=== PATIENT | male | born 1955 | race Caucasian/White ===

== ENCOUNTER 2020-04-25 02:54 | Outpatient (CLI) | payer BC, SELFPAY ==
[2020-04-25 18:17] LABS: SARS-CoV-2 RNA PCR Negative
== END 2020-04-25 02:55 | disposition home or self-care (01) ==
PROVIDERS: PCP Family Medicine; Visit Provider Urology
DX: Z01.812 Encounter for preprocedural laboratory examination (principal); Z20.828 Contact with and (suspected) exposure to other viral communicable diseases
CPT/HCPCS: 87635; C9803; U0003

== ENCOUNTER 2020-04-25 07:38 | Outpatient (CLI) | payer BC, SELFPAY ==
--- NOTE | 2020-04-25 07:41 | ECG_ITS ---
Measurements Intervals [place] Rate: 68 P: 76 IN: 206 QRS: 10 QRSD: 104 T: 31 QT: 375 QTc: 400 Interpretive Statements SINUS RHYTHM BORDERLINE AV CONDUCTION DELAY DELAYED PRECORDIAL R/S TRANSITION NONSPECIFIC ST & T-WAVE ABNORMALITY- INF/HIGH LAT LEADS BORDERLINE ECG Electronically Signed On 04-25-2020 8:10:27 CDT by Guillaume Schaefer D.O.
[2020-04-25 08:35] LABS: Anion Gap 10 mmol/L (8-16); Blood Urea Nitrogen 21 mg/dL (9-20); Calcium 9.4 mg/dL (8.4-10.2); Carbon Dioxide 32 mmol/L (22-30); Chloride 96 mmol/L (98-107); Estimated Glomerular Filt Rate > 60; Glucose 503 mg/dL (75-110); Potassium 4.6 mmol/L (3.4-5.0); Sodium 138 mmol/L (137-145)
== END 2020-04-25 07:39 | disposition home or self-care (01) ==
PROVIDERS: Anesthesiology; PCP Family Medicine; Visit Provider Urology
DX: Z01.818 Encounter for other preprocedural examination (principal); E11.9 Type 2 diabetes mellitus without complications
CPT/HCPCS: 36415; 80048; 93005

== ENCOUNTER 2020-04-27 03:43 | Day surgery (SDC) | payer BC, SELFPAY ==
[2020-04-18 08:30] VITALS: BMI 38.7
--- NOTE | 2020-04-18 09:07 | PC.NURSE ---
PT STATS NO HOME MEDS, GLIPIZIDE AND LISINOPRIL-HCTZ NOTED ON PT'S MED LIST. WHEN QUESTIONED PT STATED I PROBABLY SHOULD BE TAKING THEM, BUT I'VE LOST SOME WEIGHT AND I DON'T THINK I NEED THEM ANYMORE PT STATES LOSING ABOUT 30 LBS OVER THE LAST 9 MONTHS TO A YEAR, AND STATES HAS NOT TAKEN ANY MEDICATION FOR THE LAST 4-6 MONTHS. PT INSTRUCTED TO CONTACT DR. ARCE AND INFORM HIM OF STOPPING MEDICATIONS - UNDERSTANDING VOICED, BUT QUESTIONABLE IF PT WILL FOLLOW THROUGH. DR. ESQUIVEL INFORMED OF ABOVE.
--- NOTE | 2020-04-24 08:34 | P.HP_ITS ---
History of Present Illness History of Present Illness Consent: Risks, benefits, and alternatives have been discussed and questions answered. Patient agrees to proceed with procedure. Chief complaint: Recurrent Urethral Stricture Narrative: Kai Stewart is a 65 year old male with longstanding obstructive and irritable voiding symptoms refractory to OAB meds. Recent urodynamics reveal bladder outlet obstruction. Given history of urethral stricture we decided to forego office cystoscopy and proceed to cystoscopy, possible urethral dilatation and possible optical internal urethrotomy. Review of Systems Cardiovascular: Cardiovascular: Denies chest pain, Denies lightheadedness, Denies palpitations and Denies dyspnea Respiratory: Respiratory: Denies dyspnea Gastrointestinal: Gastrointestinal: Denies diarrhea, Denies nausea and Denies vomiting Genitourinary: Genitourinary: Denies hematuria and Denies dysuria Endocrine: Endocrine: Denies palpitations PMF Family History Family History Mother Family history of lung cancer, Onset Age: 88 Other Family history of allergic disorder Social History Social History Smoking status: Never smoker Alcohol intake: current Substance use: never Spiritual care concerns: No Meds Home Medications and Allergies Home Medications Medication Instructions Recorded Confirmed Type No Home Medications 04/18/20 04/18/20 History Allergies Allergy/AdvReac Type Severity Reaction Status Date / Time Penicillins Allergy Unknown Rash Verified 04/18/20 08:35 Exam Const: General: no acute distress Resp: Effort & Inspection: normal respiratory effort GI: Inspection: non-distended GI Palp: No abdominal tenderness and No Guarding due to palpation present (GI) Auscultation: normal bowel sounds Assessment and Plan Assessment and plan (1) Urethral stricture: Code(s): N35.919 - Unspecified urethral stricture, male, unspecified site Status: Acute Assessment and Plan: * Cystoscopy, possible urethral dilatation, possible internal urethrotomy.
[2020-04-27 06:46] VITALS: BP 159/95; PULSE 61; RESP 20; TEMP 36; O2SAT 98
--- NOTE | 2020-04-27 06:47 | WPDHPUPDATE1 ---
History and Physical Update Update Date/Time: 04/27/20 06:47 History and Physical has been reviewed, including an updated exam of the patient. There are NO changes in the patient's condition. Risks, benefits, and alternatives have been discussed and questions answered. Patient agrees to proceed with procedure.
[2020-04-27 07:00] LABS: Glucose Point of Care 308 (65-105)
[2020-04-27] MEDS: LACTATED RINGERS 1,000 ML 30 ML IV CONT (07:10)
--- NOTE | 2020-04-27 07:16 | WPDANESEPPF ---
Anes - Initial Pre Proc Eval Procedure: Operation Date: 04/27/20 08:30 Proposed Procedures p Cystoscopy, Possible Urethral Dilatation, Possible Optical Internal Urethrotomy - Jean Paul Molina MD Date/Time: 04/27/20 07:16 Surgeon: Jean Paul Molina MD Pre Op Diagnosis: Recurrent Urethral Stricture Patient Data Age: 65 Gender: M Height: 5 ft 9 in Weight: 118.81 kg Allergies Allergy/AdvReac Type Severity Reaction Status Date / Time Penicillins Allergy Unknown Rash Verified 04/27/20 07:15 Home Medications Medication Instructions Recorded Confirmed Type No Home Medications 04/18/20 04/18/20 History Laboratory Tests 04/27/20 06:38 POC Capillary Glucose 308 mg/dl H mg/dl (65-105) Patient hx anesthesia problems: none Family hx anesthesia problems: none PMFSH Past Medical History Medical History (Updated 04/27/20 @ 07:16 by Yasir Coles MD) Diabetes Obesity Family History Family History Mother Family history of lung cancer, Onset Age: 88 Other Family history of allergic disorder Social History Social History Smoking status: Never smoker Alcohol intake: current Alcohol use details: STATES VERY RARE - SOCIAL EVENTS, [place] AND THE LIKE Substance use: never Living arrangements: with family Spiritual care concerns: No Anes - Eval Final PreProcedure Day of Procedure 04/27/20 07:16 Patient weight: obese Heart: regular rate and rhythm Lungs: clear to auscultation Airway: Mallampati scale class II Neurological: alert and oriented Last oral intake: >/= 8 hours ASA classification: III Emergent: no Anesthetic plan: proceed Anesthesia type and monitoring: general LMA and standard monitoring Informed Consent: The patient's anesthetic plan and its attendant risks and benefits were discussed with the patient/family/POA. Questions were solicited and answers provided to the satisfaction of the patient/family/POA.
[2020-04-27] MEDS: INSULIN HUMAN REGULAR (*BKC) 100 UNITS/ML 10 UNITS IV PUSH (07:19)
[2020-04-27] MEDS: LIDOCAINE HCL 2% GEL UROJET 10 ML PKG MUCOUS MEM (07:20)
[2020-04-27] MEDS: ceFAZolin 2 GM/D5W 50 ML 2 GM/50 ML BAG IVPB (08:36)
--- NOTE | 2020-04-27 09:03 | P.OP_ITS ---
Procedure Note - Detailed Date of procedure: 04/27/20 Pre-op diagnosis: Recurrent Urethral Stricture Post-op diagnosis: same Procedure performed: Optical internal urethrotomy Description of procedure: The patient was brought to the operative suite where he was prepped and draped in a routine sterile fashion while in a dorsal lithotomy position after the uneventful administration of systemic sedation by the anesthesia department. 2% Lidocaine was placed in the uretha and allowed to stand for an appropriate period of time. Cystoscopy was undertaken with a 19F rigid cystoscope. He has a moderately constricting stricture of the bulbous u rethra. The bladder itself was endoscopically normal without foreign body or neoplasm. The bladder mucosa was without hyperemia. There was a single orthotopic ureteral orifice bilaterally with clear reflex of urine. Using the optical urethratome, I incised the strictured urethra at the 12 o'clock position care taken to avoid injury to the membranous urethra. An 18F Gotti catheter was placed, the bladder was emptied and the patient was taken to the recovery room in good condition. Anesthesia: MAC Surgeon: Jean Paul Molina MD Estimated blood loss (mL): 0 Drains: Yes (18F Gotti) Packing: No Pathology: none sent Complications: No immediate complications Condition: stable Disposition: PACU
[2020-04-27 09:04] VITALS: BP 117/61; PULSE 57; RESP 16; O2SAT 99
[2020-04-27 09:19] LABS: Glucose Point of Care 189 (65-105)
[2020-04-27 09:35] VITALS: BP 116/90; PULSE 66; RESP 18
[2020-04-27 10:05] VITALS: BP 131/67; PULSE 58; RESP 20
--- NOTE | 2020-04-27 12:09 | SUR.PHASEII ---
1015; PT AWAKE AND ALERT. DENIES PAIN. SANDS SECURED TO LEG BAG. LEG STRAP APPLIED PER PT REQUEST. OR SENT ONE WITH PT CHART. PT STATES HE HAS HAD A SANDS BEFORE AND IS COMFORTABLE USING THEM. MEETS DISCHARGE CRITERIA
== END 2020-04-27 10:33 | disposition home or self-care (01) ==
PROVIDERS: PCP Family Medicine; Visit Provider Urology
PROC: (CPT 52276; principal; 2020-04-27 08:30)
DX: N35.912 Unspecified bulbous urethral stricture, male (principal); E11.9 Type 2 diabetes mellitus without complications; E66.9 Obesity, unspecified; Z68.34 Body mass index [BMI] 34.0-34.9, adult
CPT/HCPCS: 52276; A9270; J0690; J1815; J2250; J2405; J2704; J3010; J7120

== ENCOUNTER 2020-05-25 18:10 | Emergency (ER) | payer BC, SELFPAY ==
--- NOTE | ~2020-05-25 | XR_ITS ---
EXAMINATION: XR chest 1V portable DATE: 05/25/2020 19:50 INDICATION: Shortness of breath and cough. TECHNIQUE: A single frontal view of the chest was obtained. COMPARISON: Chest CT 05/25/2020 FINDINGS: There are mild patchy airspace opacities in the mid and lower lung zones. No pleural effusi on or pneumothorax. The heart size is normal. IMPRESSION: 1. Mild patchy airspace opacities in the mid and lower lung zones, consistent with pneumonia such as COVID-19 pneumonia. Reviewed, dictated and finalized at location A. GRAPHER IMPRESSION: 1. Mild patchy airspace opacities in the mid and lower lung zones, consistent w ith pneumonia such as COVID-19 pneumonia.
--- NOTE | ~2020-05-25 | CT_ITS ---
EXAMINATION: CTA chest PE protocol DATE: 05/25/2020 19:47 INDICATION: Cough. TECHNIQUE: Computed tomography angiography (CTA) of the chest was performed with 100 mL Omnipaque-350 intravenous contrast timed to evaluate the pulmonary arteries. Coronal maximum intensity projection 3D-reconstructions were created by the technologist. Automated exposure control and iterative reconst ruction technique were employed. The dose-length product was 618.73 mGy-cm. COMPARISON: None. FINDINGS: There are patchy groundglass opacities with septal thickening (crazy paving) in all lobes w ith a peripheral predominance and lower lobe predominance. No pleural effusion. The heart size is nor mal. There is no pulmonary embolus. There is diffuse hepatic steatosis. There are bridging endplate o steophytes at multiple levels in the spine, consistent with diffuse idiopathic skeletal hyperostosis (DISH). IMPRESSION: 1. No pulmonary embolus. 2. Diffuse lung disease, consistent with pneumonia such as COVID-19 pneumonia. Reviewed, dictated and finalized at location A. DENTIAL BUILDING INSPECTOR
[2020-05-25 18:16] VITALS: BP 140/84; PULSE 120; RESP 14; TEMP 37.1; O2SAT 97
--- NOTE | 2020-05-25 18:32 | ECG_ITS ---
Measurements Intervals [place] Rate: 129 P: CT: 0 QRS: 20 QRSD: 92 T: 216 QT: 288 QTc: 423 Interpretive Statements ATRIAL FIBRILLATION WITH RAPID VENTRICULAR RESPONSE NONSPECIFIC ST & T-WAVE ABNORMALITY- DIFFUSE LEADS BASELINE ARTIFACT- I, III, AVL, AVF ABNORMAL ECG Electronically Signed On 05-26-2020 6:48:01 IRONWORKER by Guillaume Schaefer D.O.
--- NOTE | 2020-05-25 18:34 | ED.GENADULT ---
HPI - General Adult General Chief complaint: Unspecified Stated complaint: felt bad x5 days, no appetite Time Seen by Provider: 05/25/20 18:17 Source: patient Mode of arrival: ambulatory Limitations: no limitations History of Present Illness HPI narrative: Patient 65 years old white male presents with coughing, shortness of breath, diarrhea, general weakness for the last 6 days. History of COVID-19 exposure 2 weeks ago. Patient did not have COVID-19 test done yet. Patient's is asymptomatic. Patient denies any fever, chills, sore throat, headache, body aches. Related Data Allergies Allergy/AdvReac Type Severity Reaction Status Date / Time Penicillins Allergy Unknown Rash Verified 05/25/20 18:19 Review of Systems Review of Systems: Narrative: CONSTITUTIONAL: Denies fever, chills, or sweats. EYES: Denies visual changes, redness, or discharge. ENT: Denies rhinorrhea, congestion, sore throat, or otalgia. CARDIOVASCULAR: Denies chest pain, palpitations, or edema. RESPIRATORY: Complaining of cough and shortness of breath GASTROINTESTINAL: Denies abdominal pain, nausea, vomiting, or diarrhea. GENITOURINARY: Denies dysuria or hematuria. SKIN: Denies rash or itching. MUSCULOSKELETAL: Denies back pain, joint pain, or myalgia. NEUROLOGIC: Denies headache, numbness, complaining of general weakness PSYCHIATRIC: Denies anxiety or depression. [facility] Past Medical History Medical History Diabetes Obesity Family History Family History Mother Family history of lung cancer, Onset Age: 88 Other Family history of allergic disorder Social History Social History Smoking status: Never smoker Alcohol intake: current Substance use: never Spiritual care concerns: No Exam Narrative: Exam Narrative: General appearance: Well-developed, well-nourished Skin: Normal color Head: Normocephalic, nontraumatic Eyes: Clear conjunctiva Chest and respiratory: Airway patent, no respiratory distress, no accessory muscle use slight diminution of air entry bilaterally at the bases Heart: Regular rate/rhythm Abdomen: Soft, nontender, no organomegaly, quiet bowel sounds Musculoskeletal: Normal range of motion, nontender back Neurologic: Alert and oriented ?3, IMMUNOHEMATOLOGIST is normal as tested, no gross motor deficit Course Course Emergency Course: Stable Consultations Consultation #1: DR JALLOH Patient can go home. For follow-up as outpatient. Date: 05/25/20 Time: 20:56 Vital Signs Vital signs: Vital Signs Temperature 37.1 C 05/25/20 18:16 Pulse Rate 120 H 05/25/20 18:16 Respiratory Rate 14 05/25/20 18:16 Blood Pressure 140/84 05/25/20 18:16 Pulse Oximetry 97 05/25/20 18:16 Temperature 37.1 C 05/25/20 18:16 Pulse Rate 115 H 05/25/20 19:56 Respiratory Rate 28 H 05/25/20 19:56 Blood Pressure 118/76 05/25/20 19:56 Pulse Oximetry 97 05/25/20 19:56 Medical Decision Making MDM Narrative Medical decision making narrative: Patient presents with Covid-like symptoms. Positive exposure to Covid positive family members. The plan to get labs, chest x-ray, Covid test, D-dimer, start IV fluid. Chest x-ray showed bilateral basal infiltration consistent with COVID-19 pneumonia. Blood work-up showed leukopenia consistent with viral infection. Blood gas showed oxygen saturation at 94% on room air. Patient symptoms started 6 days ago, remdesivir will not be recommended at this time. Patient will be discharged and to follow-up with his family physician as needed. Differential Diagno
[2020-05-25 18:44] LABS: Basophils Percent Auto 0.9 % (0.2-1.2); Eosinophils Percent Auto 0.3 % (0-4.4); Hemoglobin 16.3 g/dL (14.0-18.0); Immature Granulocyte Absolute 0.06 K/mm3 (0.00-0.031); Immature Granulocyte Percent A 1.7 % (0-0.5); Lymphocytes Percent Auto 23.2 % (18.3-44.2); Mean Corpuscular HGB Conc 33.3 g/dl (32-36); Mean Corpuscular Hemoglobin 28.2 pg (26-34); Mean Corpuscular Volume 84.6 fl (80-100); Mean Platelet Volume 10.6 fl (7.4-10.4); Monocytes Absolute Auto 0.5 K/mm3 (0.1-0.6); Monocytes Percent Auto 14.5 % (2.6-8.5); Neutrophils Absolute Auto 2.1 K/mm3 (1.3-6.7); Neutrophils Percent Auto 59.4 % (45.5-73.1); Platelet Count Result 203 k/mm3 (150-375); Red Blood Count 5.79 M/mm3 (4.6-6.20); Red Cell Distribution Width 12.7 % (11.5-14.5); White Blood Count 3.5 K/mm3 (4.5-10.0)
--- NOTE | 2020-05-25 18:46 | PCRCNOTE ---
PT UP TO BATHROOM. ABG DRAW DELAYED.
[2020-05-25 18:55] LABS: Prothrombin Time 13.8 Seconds (11.1-14.7)
[2020-05-25 18:56] LABS: Partial Thromboplastin Time 30.9 SECONDS (22.3-36.8)
[2020-05-25 18:58] LABS: D Dimer 0.51 ug/mL (<0.48)
[2020-05-25 18:59] LABS: Alanine Aminotransferase 28 U/L (4-50); Albumin Level 3.7 g/dL (3.5-5.1); Alkaline Phosphatase 82 U/L (38-126); Anion Gap 10 mmol/L (8-16); Aspartate Amino Transferase 38 U/L (17-59); Blood Urea Nitrogen 26 mg/dL (9-20); CRP 4.8 mg/dL (<1.0); Calcium 8.7 mg/dL (8.4-10.2); Carbon Dioxide 30 mmol/L (22-30); Chloride 94 mmol/L (98-107); Estimated CRCL calculation 70 ml/min; Estimated Glomerular Filt Rate > 60; Glucose 275 mg/dL (75-110); Sodium 134 mmol/L (137-145)
[2020-05-25 19:07] LABS: Alveolar/Arterial O2 Gradient 44.2 mmHg; Base Excess ABG 0.8 mEq/l (+/-2.0); Fractional Inspired Oxygen 21 %; HCO3 ABG 23.9 mEq/l (22.0-26.0); Oxygen Content ABG 21.2 %vol (16.0-22.0); Oxyhemoglobin 92.7 % THb (90.0-100.0); PO2 ABG 64.8 mmHg (80.0-100.0); PO2 FiO2 Ratio Arterial Blood 3.09 %; Total Hemoglobin 16.3 g/dL (12.0-18.0); pH ABG 7.464 (7.350-7.450)
[2020-05-25 19:08] LABS: Troponin I < 0.012 ng/mL (0.000-0.034)
[2020-05-25 19:08] LABS: Device ROOM AIR; Modified Allen's Test Pass; Site Drawn LEFT RADIAL
[2020-05-25] MEDS: SODIUM CHLORIDE 0.9% IV 1,000 ML 999 ML IV CONT (19:10)
[2020-05-25 19:13] VITALS: RESP 14; O2SAT 99
[2020-05-25 19:14] VITALS: BP 124/75; PULSE 118; RESP 14; O2SAT 96
[2020-05-25 19:33] LABS: Add Urine Microscopic? YES; Appearance Urine Clear (Clear); Bilirubin Urine Negative (Negative); Blood Urine Negative (Negative); Color Urine Amber (Yellow); Glucose Urine UA 2+ mg/dL (Negative); Ketones Urine Trace mg/dL (Negative); Leukocyte Esterase Ur Negative LEU/UL (Negative); Mucus Urine Few /lpf; Nitrate Urine Negative (Negative); Protein Urine 2+ mg/dL (Negative); RBC Urine 0-2 /hpf (0-2); Squamous Epithelial Cell Urine Few /hpf (Few); WBC Urine 0-3 /hpf
[2020-05-25 19:39] LABS: Lactic Acid Reflex 1.8 mmol/L (0.7-2.1)
[2020-05-25 19:56] VITALS: BP 118/76; PULSE 115; RESP 28; O2SAT 97
[2020-05-25 21:08] VITALS: BP 117/86; PULSE 99; RESP 24; O2SAT 97
[2020-05-26 15:20] LABS: SARS-CoV-2 RNA PCR Positive
== END 2020-05-25 21:33 | disposition home or self-care (01) ==
PROVIDERS: Emergency Provider Emergency Medicine; PCP Family Medicine
DX: U07.1 COVID-19 (principal); J12.89 Other viral pneumonia; E11.9 Type 2 diabetes mellitus without complications; E66.9 Obesity, unspecified; Z68.33 Body mass index [BMI] 33.0-33.9, adult; I48.91 Unspecified atrial fibrillation; R94.31 Abnormal electrocardiogram [ECG] [EKG]
CPT/HCPCS: 36415; 36600; 71045; 71275; 80053; 81001; 82805; 83605; 84484; 85025; 85380; 85610; 85730; 86140; 87040; 87077; 87186; 87635; 93005; 96360; 96361; 99284; C9803; J7030; Q9967; U0003

== ENCOUNTER 2020-05-29 18:19 | Inpatient (IN) | payer BC, MEDICARE, SELFPAY ==
--- NOTE | ~2020-05-29 | XR_ITS ---
XR chest 1V portable DATE: 05/29/2020 20:06 INDICATION: Shortness of breath, fever. Weakness. Covid-positive patient. TECHNIQUE: Portable upright AP chest on 05/29/2020 at 2009 hours COMPARISON: 05/25/2020 portable AP chest at 1949 hours FINDINGS: There is interval increased prominence of bilateral patchy infiltrates involving particular ly the mid and lower lung zones since 05/25/2020. No pleural effusion or pneumothorax is evident. There is aortic arch calcification. Heart size is lik florentino within normal limits considering magnification associated with AP projection. Degenerative spurring of the thoracic spine. IMPRESSION: Increased bilateral pneumonia since 05/25/2020 Reviewed, dictated and finalized at location A. ER PUNCH
--- NOTE | ~2020-05-29 | XR_ITS ---
EXAMINATION: XR chest 1V portable EXAM DATE: 06/01/2020 06:11 INDICATION: COVID-19 positive. Pneumonia. TECHNIQUE: Portable AP frontal chest x-ray was obtained. Comparison is made to prior examination from 05/29/2020. FINDINGS: Moderate amount of bilateral ill-defined opacities with peripheral regions of confluence, m ost consistent with acute infectious process. The cardiomediastinal silhouette is prominent but magni fied on this AP technique. There is no pneumothorax suspected. There are no pleural effusions. There are no osseous abnormalities identified. There is no significant interval change. IMPRESSION: Moderate amount of bilateral acute airspace disease. Reviewed, dictated and finalized at location A. STOCK DEALER
--- NOTE | ~2020-05-29 | XR_ITS ---
EXAMINATION: XR chest 1V portable INDICATION: Shortness of breath TECHNIQUE: Portable AP chest at 0508 hours COMPARISON: 06/01/2020 FINDINGS: Diffuse bilateral interstitial and airspace opacities persist without significant change. T here is no pleural effusion or pneumothorax. The heart size is normal for technique. IMPRESSION: 1. Stable diffuse lung disease, consistent with pneumonia and/or pulmonary edema and/or acute respira tory distress syndrome (ARDS). Reviewed, dictated and finalized at location A. TATION MECHANIC IMPRESSION: 1. Stable diffuse lung disease, consistent with pneumonia and/or pulmonary estrellita a and/or acute respiratory distress syndrome (ARDS).
[2020-05-29 19:04] VITALS: BP 114/78; PULSE 136; RESP 22; TEMP 39.3; O2SAT 84
[2020-05-29 19:07] VITALS: PULSE 134
--- NOTE | 2020-05-29 19:10 | ECG_ITS ---
Measurements Intervals [place] Rate: 141 P: [place]: 0 QRS: 39 QRSD: 97 T: -44 QT: 316 QTc: 485 Interpretive Statements ATRIAL FIBRILLATION WITH RAPID VENTRICULAR RESPONSE ST-T WAVE ABNORMALITY IN ANTEROLAT/INF LEADS- CONSIDER ISCHEMIA BASELINE WANDER- I, II, AVR, AVL, AVF, V1-V3 ABNORMAL ECG Electronically Signed On 05-29-2020 20:09:54 WIRE WEAVER by Guillaume Schaefer D.O.
--- NOTE | 2020-05-29 19:14 | ED.GENADULT ---
HPI - General Adult General Chief complaint: Shortness of Breath/Dyspnea Stated complaint: Diarrhea, COVID Positive Firday, Lethergy Time Seen by Provider: 05/29/20 18:58 Source: patient and old records reviewed Mode of arrival: ambulatory Limitations: no limitations History of Present Illness HPI narrative: Patient is 65-year-old male who presents to emergency department for evaluation of worsening COVID-19 symptoms noting he is dyspneic having chest heaviness with headache nausea vomiting and diarrhea. Patient was found to be positive in the last couple of days his is also sick. Patient was placed on clindamycin for possible staph infection in the right arm where he had had a blood draw. Patient notes despite [id number] medications and prescribed medications he has had worsening condition Related Data Allergies Allergy/AdvReac Type Severity Reaction Status Date / Time Penicillins Allergy Unknown Rash Verified 05/29/20 19:08 Review of Systems Review of Systems: All systems reviewed & are unremarkable except as noted in HPI and below PMFSH Past Medical History Medical History Diabetes Obesity Family History Family History Mother Family history of lung cancer, Onset Age: 88 Other Family history of allergic disorder Social History Social History Smoking status: Never smoker Alcohol intake: current Substance use: never Spiritual care concerns: No Exam Narrative: Exam Narrative: GENERAL: Ill-appearing, obese, and in no acute distress. HEAD: Normocephalic, atraumatic. EYES: PERRLA and EOMI. ENT: Nares clear, no rhinorrhea or epistaxis. Mucous membranes dry NECK: Supple. No adenopathy or masses. CHEST: Clear to auscultation. No respiratory distress. Slight crackles throughout HEART: Tachycardic irregularly irregular rate and rhythm. No murmur heard. Normal peripheral pulses. EXTREMITIES: Normal range of motion. No edema. SKIN: Warm, dry, no rash. NEURO: No focal deficits. Alert and oriented x3. Cranial nerves II through XII grossly intact PSYCH: Normal mood and affect. Course Course Emergency Course: Patient has been treated for sepsis with fluids was given Cardizem to slow his heart rate patient with likely A. fib with RVR secondary to his illness which is COVID-19 patient with vomiting and diarrhea likely has become dehydrated has been hydrated in the ER will be placed in the hospital to the hospitalist service in the IMU. Consultations Consultation #1: Spoke with the hospitalist who has agreed to accept the patient Date: 05/29/20 Time: 20:39 Vital Signs Vital signs: Vital Signs Temperature 102.8 F H 05/29/20 19:04 Pulse Rate 136 H 05/29/20 19:04 Respiratory Rate 22 H 05/29/20 19:04 Blood Pressure 114/78 05/29/20 19:04 Pulse Oximetry 84 L 05/29/20 19:04 Temperature 102.8 F H 05/29/20 19:04 Pulse Rate 134 H 05/29/20 19:07 Respiratory Rate 22 H 05/29/20 19:04 Blood Pressure 114/78 05/29/20 19:04 Pulse Oximetry 84 L 05/29/20 19:04 Medical Decision Making MDM Narrative Medical decision making narrative: With the patient in the room at this time with improvement with interventions afebrile was given Cardizem his heart rate did improve patient. Patient will be continually monitored in the IMU. Patient at this time agreeing to stay in hospital. Patient was given 3 L of fluid Tylenol and Cardizem. Vital Signs Vital Signs: Vital Signs Temperature 102.8 F H 05/29/20 19:04 Pulse Rate 136 H 05/29/20 19:04 Respiratory Rate 22 H 05/29/20 19:04 Blood Pressure 114/78 05/29/20 19:04 Pulse Oximetry 84 L 05/29/20 19:04 Temperature 102.8 F H 05/29/20 19:04 Pulse Rate 134 H 05/29/20 19:07 Respiratory Rate 22 H 05/29/20 19:04 Blood Pressure 114/78 05/29/20 19:04 Pu
[2020-05-29] MEDS: DEXAMETHASONE SOD PHOS INJ 4 MG/ML VIAL 10 MG IV PUSH (19:37)
[2020-05-29] MEDS: SODIUM CHLORIDE 0.9% IV 1,000 ML 999 ML IV CONT ×2 (19:38→20:14)
[2020-05-29 19:47] LABS: Alveolar/Arterial O2 Gradient 80.2 mmHg; Base Excess ABG 0.2 mEq/l (+/-2.0); Carboxyhemoglobin 1.1 % THb (0-2.0); Device NASAL CANNULA; Fractional Inspired Oxygen 28 %; Methemoglobin ABG 0.4 %THb (0-1.5); Modified Allen's Test Pass; Oxygen Content ABG 20.4 %vol (16.0-22.0); Oxygen Saturation ABG 96.7 % (95.0-100.0); Oxyhemoglobin 94.7 % THb (90.0-100.0); PCO2 ABG 32.2 mmHg (35.0-45.0); PO2 ABG 81.4 mmHg (80.0-100.0); PO2 FiO2 Ratio Arterial Blood 2.91 %; Reduced Hemoglobin 3.8 %THb (0-5.0); Site Drawn RIGHT RADIAL; Total Hemoglobin 15.3 g/dL (12.0-18.0); pH ABG 7.471 (7.350-7.450)
[2020-05-29 19:57] LABS: Lactic Acid Reflex 3.2 mmol/L (0.7-2.1)
[2020-05-29 20:08] LABS: Basophils Percent Auto 0.3 % (0.2-1.2); Eosinophils Percent Auto 0.3 % (0-4.4); Hematocrit 45.4 % (42.0-52.0); Hemoglobin 15.1 g/dL (14.0-18.0); Immature Granulocyte Absolute 0.05 K/mm3 (0.00-0.031); Immature Granulocyte Percent A 0.7 % (0-0.5); Lymphocytes Absolute Auto 0.42 K/mm3 (0.9-3.2); Lymphocytes Percent Auto 5.8 % (18.3-44.2); Mean Corpuscular HGB Conc 33.3 g/dl (32-36); Mean Corpuscular Hemoglobin 28.1 pg (26-34); Mean Corpuscular Volume 84.5 fl (80-100); Mean Platelet Volume 10.2 fl (7.4-10.4); Monocytes Absolute Auto 0.8 K/mm3 (0.1-0.6); Monocytes Percent Auto 10.4 % (2.6-8.5); Neutrophils Percent Auto 82.5 % (45.5-73.1); Platelet Count Result 246 k/mm3 (150-375); Red Blood Count 5.37 M/mm3 (4.6-6.20); Red Cell Distribution Width 12.3 % (11.5-14.5); White Blood Count 7.2 K/mm3 (4.5-10.0)
[2020-05-29 20:23] LABS: Alanine Aminotransferase 23 U/L (4-50); Albumin Level 3.5 g/dL (3.5-5.1); Alkaline Phosphatase 78 U/L (38-126); Anion Gap 12 mmol/L (8-16); Aspartate Amino Transferase 36 U/L (17-59); Bilirubin,Total 1.4 mg/dL (0.2-1.3); Blood Urea Nitrogen 22 mg/dL (9-20); Calcium 8.4 mg/dL (8.4-10.2); Carbon Dioxide 28 mmol/L (22-30); Chloride 97 mmol/L (98-107); Estimated CRCL calculation 55 ml/min; Estimated Glomerular Filt Rate 51; Glucose 180 mg/dL (75-110); Magnesium 1.6 mg/dL (1.6-2.3); Phosphorus 3.6 mg/dL (2.5-4.5); Potassium 3.6 mmol/L (3.4-5.0); Sodium 137 mmol/L (137-145)
[2020-05-29 20:43] LABS: Beta-Hydroxybutyrate/Acetoacetate 0.95 mmol/L (0.02-0.27)
[2020-05-29] MEDS: LACTATED RINGERS 1,000 ML 999 ML IV CONT (20:47)
[2020-05-29] MEDS: dilTIAZem HCl INJ 25 MG/5 ML VIAL 10 MG IV PUSH (20:48)
[2020-05-29 20:50] VITALS: BP 89/68; PULSE 98; RESP 22; TEMP 36.6; O2SAT 94
[2020-05-29 21:20] LABS: Troponin I 0.014 ng/mL (0.000-0.034)
[2020-05-29] MEDS: FAMOTIDINE 20 MG/2 ML VIAL IV PUSH (21:53)
[2020-05-29] MEDS: LACTATED RINGERS 1,000 ML 75 ML IV CONT (21:53)
[2020-05-29 22:40] LABS: Reflex Lactic Acid Yes or No Add Lactic
[2020-05-29 22:53] VITALS: BP 101/64; PULSE 94; RESP 19; TEMP 36.9; O2SAT 96
--- NOTE | 2020-05-29 23:11 | PC.NURSE ---
This patient, Kai Stewart, was admitted to IMU Room 212-01. Patient/family oriented to hospital policies and general routines including ID bracelet, bed and alarms, visiting hours, pain management, procedures, bathroom and other care routines, personal items, smoking policy, room service/diet, and visiting hours. Information on how to activate the Rapid Response Team has been discussed. Patient/Family are encouraged to report perceived risks to care and to ask questions if they do not understand what they are told or what they should do.
[2020-05-29 23:19] VITALS: BP 103/70; PULSE 115; RESP 24; TEMP 36.9; O2SAT 98
--- NOTE | 2020-05-29 23:53 | PM.IMHP ---
H&P: HPI History of Present Illness Date/Time: 05/29/20 23:53 Chief complaint: covid 19, sepsis, pneumonia, dehydration Narrative: This is a pleasant 65 year old Diabetic male who presented to the hospital [facility] with a complaint of worsening shortness of breath, headache, body aches, fever, vomiting, and diarrhea. The patient has had COVID symptoms for about 2 weeks now and just tested positive for COVID-19 this past week. Tonight the patient decided to come to the hospital as he as having worsening exertional shortness of breath. The patient was evaluated in the ER tonight and found to be hypoxic on room air and placed on 3L of oxygen via NC. While in the ER the patient was found to be in rapid atrial fibrillation. He was treated with LR IV bolus and IV diltiazem as his heart rate was in the 130s. He denies any history of atrial fibrillation. ON further questioning tonight he denies any chest pain, hematuria, dysuria, abdominal pain, or focal neurological symptoms. Review of Systems Review of Systems: All systems reviewed & are unremarkable except as noted in HPI and below PMFSH Past Medical History Medical History Diabetes Obesity Family History Family History Mother Family history of lung cancer, Onset Age: 88 Other Family history of allergic disorder Social History Social History Smoking status: Former smoker Alcohol intake: never Substance use: never Spiritual care concerns: No Comments Past surgical history is reviewed and noncontributory. Meds Home Medications and Allergies Home Medications Medication Instructions Recorded Confirmed Type metformin 500 mg tablet,extended 1,000 mg PO BID #120 tablet 05/01/20 05/29/20 Rx release 24 hr clindamycin HCl 300 mg capsule 300 mg PO Q8H #21 cap 05/27/20 05/29/20 Rx lisinopril-hydrochlorothiazide 1 tablet DAILY 05/29/20 05/29/20 History Allergies Allergy/AdvReac Type Severity Reaction Status Date / Time Penicillins Allergy Unknown Rash Verified 05/29/20 19:08 Vital Signs Vital Signs - 24 hr 05/29/20 19:04 05/29/20 19:07 05/29/20 20:50 Temperature 39.3 C H 36.6 C Pulse Rate 136 H 134 H 98 Respiratory Rate 22 H 22 H Blood Pressure 114/78 89/68 L Pulse Oximetry 84 L 94 05/29/20 22:53 05/29/20 23:19 Temperature 36.9 C 36.9 C Pulse Rate 94 115 H Respiratory Rate 19 24 H Blood Pressure 101/64 103/70 Pulse Oximetry 96 98 Exam Const: General: cooperative, alert, awake and ill appearing acutely Nutritional Appearance: obese morbidly obese Orientation/consciousness: patient oriented x3 HENMT: Head: normal to inspection General nose exam: Normal external nose present Face and sinus: normal facial exam Mouth: Yes Normal oral and palatal mucosa present and Yes oropharynx normal Eyes: Pupils: Equal, round and reactive pupils present EOM: EOMs intact bilaterally Neck: Neck: supple and no JVD Thyroid: thyroid normal Lymphatic: lymphadenopathy not noted Resp: Effort & Inspection: tachypneic Auscultation: rales bilateral Cardio: Rate: tachycardic Rhythm: abnormal rhythm irregularly irregular Heart sounds: no murmurs GI: Inspection: normal to inspection Auscultation: normal bowel sounds Skin: General skin exam: normal color and no rashes or lesions noted Neuro: General: patient oriented x3 Cranial nerves: Yes CN's II-XII intact bilaterally and Yes Equal, round and reactive pupils present Speech: normal speech Motor exam (neuro): 5/5 motor strength present throughout Sensory Exam: normal sensation Extrem: General: no edema Psych: Mental Status: mental status grossly normal Affect: normal affect H&P: Results Labs Labs: Short CBC 05/29/20 Range/Units 19:54 WBC 7.2 (4.5-10.0) K/mm3 Hgb 15.1 (14.0-18.0) g/dL Hct 45.4 (42.0-52.0
[2020-05-30] VITALS (25 sets, daily range): BP systolic 102–131; BP diastolic 58–93; PULSE 106–150; RESP 16–20; TEMP 36.8–37.3; O2SAT 91–98
--- NOTE | 2020-05-30 00:12 | ECHO_ITS ---
Patient Info Name: Kai Stewart Age: 65 years : 1955 Gender: Male Ht: 69 in Wt: 226 lbs BSA: 2.27 m2 HR: 120 bpm BP: 112 / 75 mmHg Heart Rhythm: Atrial Fibrillation Technical Quality: Good Exam Date: 05/30/2020 11:38 AM Exam Location: [facility] Pulmonary Patient Status: Inpatient Admit Date: 05/29/2020 Staff Ordering Physician: Luis Enrique Perrin MD Underwriting Assistant: Yasir Talamantes RDCS Attending Provider: Camilo Dubon MD Referring Physician: Marychuy CISNEROS; Exam Type: CA echo doppler color flow Study Info Indications I48.1 - Persistent atrial fibrillation Complete two-dimensional, color flow and Doppler transthoracic echocardiogram is performed. History/Risk Factors Covid positive; sepsis, pneumonia, DM2, ARF w/ hypoxia, Afib. Summary 1. Left ventricular systolic function is normal, estimated at 55-60%. 2. There is mildly increased left ventricular wall thickness. 3. Left atrial chamber dimension is mildly enlarged. 4. There is no aortic valve stenosis. 5. No pulmonary hypertension, estimated pulmonary arterial systolic pressure is 29 mmHg. 6. There is trace tricuspid valve regurgitation. Left Ventricle Left ventricular chamber dimension is normal. Left ventricular systolic function is normal, estimated at 55-60%. There is mildly increased left ventricular wall thickness. The left ventricular diastolic function is indeterminate. Right Ventricle Right ventricular chamber dimension is normal. Right ventricular systolic function is normal. Left Atria Left atrial chamber dimension is mildly enlarged. Right Atria Right atrial chamber dimension is mildly enlarged. Aortic Valve The aortic valve is not well visualized. There is no aortic valve stenosis. There is no aortic valve regurgitation. Pulmonic Valve The pulmonic valve is not well visualized. Mitral Valve The mitral valve has normal leaflets. There is trace mitral valve regurgitation. Tricuspid Valve The tricuspid valve leaflets are normal. There is trace tricuspid valve regurgitation. No pulmonary hypertension, estimated pulmonary arterial systolic pressure is 29 mmHg. Pericardium/Pleural The pericardium appears epicardial fat pad. There is trivial pericardial effusion. Inferior Vena Cava Normal inferior vena cava with >50% collapse upon inspiration consistent with normal right atrial pressure, 5 mmHg. Aorta The aortic root size at the sinus of Valsalva is normal. Left Ventricular Outflow Tract Name Value Normal LVOT 2D LVOT Diameter 1.9 cm LVOT Doppler LVOT Peak Velocity 92 cm/s LVOT Peak Gradient 3 mmHg LVOT Mean Gradient 1 mmHg LVOT VTI 13 cm LVOT VTI/AV VTI Ratio 0.8 LVOT Stroke Volume 38 ml LVOT CO 3.9 l/min LVOT CI 1.7 l/min/m2 Mitral Valve Name
[2020-05-30] MEDS: DIGOXIN INJ 250 MCG/ML 2 ML AMP (*BKC) 500 MCG IV PUSH (01:20)
[2020-05-30] MEDS: guaiFENesin/DEXTROMETHORPHAN 10 ML UDC PO (01:22)
[2020-05-30] MEDS: ENOXAPARIN 100 MG/ML SYRINGE SUB-Q ×3 (01:22→22:05)
[2020-05-30] MEDS: LEVALBUTEROL HFA (*SP) 15 GM INHALER 2 PUFF INHALATION ×4 (01:46→21:41)
[2020-05-30 01:51] LABS: Add Urine Microscopic? YES; Appearance Urine Cloudy (Clear); Bilirubin Urine Negative (Negative); Blood Urine 1+ (Negative); Color Urine Amber (Yellow); Glucose Urine UA 2+ mg/dL (Negative); Ketones Urine Trace mg/dL (Negative); Leukocyte Esterase Ur Negative LEU/UL (Negative); Mucus Urine Moderate /lpf; Nitrate Urine Negative (Negative); Protein Urine 2+ mg/dL (Negative); RBC Urine 0-2 /hpf (0-2); Specific Grav Ur 1.029 (1.001-1.035); Squamous Epithelial Cell Urine Moderate /hpf (Few)
[2020-05-30 06:41] LABS: Basophils Percent Auto 0.5 % (0.2-1.2); Hematocrit 41.4 % (42.0-52.0); Hemoglobin 13.7 g/dL (14.0-18.0); Immature Granulocyte Absolute 0.03 K/mm3 (0.00-0.031); Immature Granulocyte Percent A 0.7 % (0-0.5); Mean Corpuscular HGB Conc 33.1 g/dl (32-36); Mean Corpuscular Volume 84.5 fl (80-100); Mean Platelet Volume 10.5 fl (7.4-10.4); Monocytes Absolute Auto 0.3 K/mm3 (0.1-0.6); Monocytes Percent Auto 6.5 % (2.6-8.5); Neutrophils Absolute Auto 3.3 K/mm3 (1.3-6.7); Neutrophils Percent Auto 82.3 % (45.5-73.1); Platelet Count Result 224 k/mm3 (150-375); Red Cell Distribution Width 12.3 % (11.5-14.5)
[2020-05-30 07:02] LABS: Anion Gap 9 mmol/L (8-16); Blood Urea Nitrogen 27 mg/dL (9-20); Calcium 7.6 mg/dL (8.4-10.2); Carbon Dioxide 24 mmol/L (22-30); Chloride 101 mmol/L (98-107); Estimated CRCL calculation 76 ml/min; Estimated Glomerular Filt Rate > 60; Glucose 300 mg/dL (75-110); Potassium 3.5 mmol/L (3.4-5.0); Sodium 134 mmol/L (137-145)
[2020-05-30 08:25] LABS: Thyroid Stimulating Hormone Reflex 0.306 uIU/mL (0.465-4.68)
[2020-05-30] MEDS: DEXAMETHASONE SOD PHOS INJ 4 MG/ML VIAL 6 MG IV PUSH (09:00)
[2020-05-30] MEDS: FAMOTIDINE 20 MG/2 ML VIAL IV PUSH ×2 (09:00→22:05)
[2020-05-30] MEDS: INSULIN ASPART (*BKC) 100 UNITS/ML SUB-Q ×2 (09:05→17:29)
[2020-05-30 09:31] LABS: Free T4 Free Thyroxine Reflex 1.52 ng/dL (0.78-2.19)
[2020-05-30 09:38] LABS: Glucose Point of Care 279 (65-105)
--- NOTE | 2020-05-30 09:57 | PM.CNCAR ---
Assessment and Plan Assessment and plan (1) Atrial fibrillation with rapid ventricular response: Code(s): I48.91 - Unspecified atrial fibrillation Status: Acute Assessment and Plan: 65-year-old male with hypertension, diabetes mellitus, admitted to the hospital with COVID-19 infection. Patient found to be in atrial fibrillation with RVR. No known prior history of AFib. - Patient is currently in AFib with RVR, triggered by underlying COVID 19 pneumonia. His blood pressure is reasonable right now. Heart rate is in 110s to 120s on telemetry. Continue IV diltiazem. If necessary, may add IV amiodarone for rate control, and possibly caodaism of rhythm. Hopefully, once patient's underlying infection resolves, he may convert to sinus rhythm spontaneously. - Continue anticoagulation with low-molecular weight heparin. Need for long-term anticoagulation to be determined. - Once patient's heart rate is better controlled, may do echocardiogram with Doppler to rule out any major structural heart disease - continue to monitor on telemetry (2) Pneumonia due to COVID-19 virus: Code(s): U07.1 - COVID-19; J12.89 - Other viral pneumonia Status: Acute Assessment and Plan: appropriate antibiotics, steroids, management as per primary team (3) Acute respiratory failure with hypoxia: Code(s): J96.01 - Acute respiratory failure with hypoxia Status: Acute Assessment and Plan: supplemental oxygen, management as per primary team History of Present Illness History of Present Illness Consult date/time: 05/30/20 09:57 Date of consult: 05/30/2020 requesting physician:Dr Perrin Reason for consult: Atrial fibrillation with RVR HPI: 65-year-old male with hypertension, diabetes mellitus. Patient was admitted to [facility] on 05/25/2020 with complaints of coughing, shortness of breath, diarrhea, general weakness for the last 6 days. Patient had COVID-19 exposure 2 weeks ago. Patient was found to be positive for COVID-19. Was hypoxemic and required supplemental oxygen. EKG on admission which I personally evaluated showed atrial fibrillation with RVR, ventricular rate 129 beats per minute, nonspecific ST-T abnormality. On telemetry, patient is currently in atrial fibrillation with RVR, heart rates in 110s to 120s. CT scan of the chest did not show pulmonary embolus; reported diffuse lung disease, consistent with pneumonia such as COVID-19 pneumonia. Currently, patient complains of mild substernal chest discomfort which is worse with cough. He also has shortness of breath, headache. His symptoms have improved since admission to the hospital. He denies any known prior cardiac history including clinical PR, angina, heart failure or any arrhythmias. Reason For Visit: covid 19, sepsis, pneumonia, dehydration Review of Systems Review of Systems: Narrative: General: Negative for fever, chills, Positive forfatigue Psychological: Negative for anxiety, depression Ophthalmic: negative for loss of vision ENT: Negative for epistaxis, headaches Allergy and immunology: Negative for hives, nasal congestion Hematologic and lymphatic: Negative for overt bleeding problems Endocrine: Negative for hot flashes, palpitations Respiratory: positive for shortness of breath Cardiovascular: positive for chest pain, worse with breathing; shortness of breath Gastrointestinal: recent diarrhea, no abdominal pain Musculoskeletal: Negative for myalgia, joint pains Neurological: Negative for weakness Dermatological: Negative for rash, skin discoloration PMFSH Past Medical History Medical History Diabetes Obesity Family History Family History Mother Family history of lung cancer, Onset Age: 88 Other Family history of allergic disorder Social History Social History (Reviewed 05/21
--- NOTE | 2020-05-30 11:13 | PC.NURSE ---
Spoke with Dr. Marrero this AM regarding patient's heart rate in the 130/140's. New order to increase Cardizem drip to 10mg/hr. Dr. Sinclair spoke with RN regarding patient's HR still in the 120's at times. New order to increase Cardizem drip to 15mg/hr in pt sustains HR >120 for more than 30 minutes. Continue to monitor BP closely. Notify Md if BP starts to decrease
--- NOTE | 2020-05-30 11:47 | PM.IMPN ---
Progress Note: A&P Assessment and Plan (1) Acute respiratory failure with hypoxia: Code(s): J96.01 - Acute respiratory failure with hypoxia Status: Acute Assessment and Plan: Related to COVID PNA and possibly underlying bacterial PNA. Continue oxygen supplementation and wean off as tolerated. Continue treatment of COVID pneumonia. (2) Pneumonia due to COVID-19 virus: Code(s): U07.1 - COVID-19; J12.89 - Other viral pneumonia Status: Acute Assessment and Plan: Gilberto tested positive last week. He has been started on Decardon. Down to 1L so will hold on Redesivir. Continue droplet isolation, supportive care. We will continue IV antibiotics for possible superimposed pneumonia. Cultures pending (3) Severe sepsis: Code(s): A41.9 - Sepsis, unspecified organism; R65.20 - Severe sepsis without septic shock Status: Acute Assessment and Plan: Sepsis present on admission with tachycardia, fever, tachypnea, and elevated lactic acid level. CXR showing increasing bilateral PNA. Source of sepsis appears to be pulmonary. Monitor vital signs and urine output closely. Continue IV antibiotics. Blood cultures pending. (4) Atrial fibrillation with rapid ventricular response: Code(s): I48.91 - Unspecified atrial fibrillation Status: Acute Assessment and Plan: New onset Atrial fibrillation w/ RVR - CHADSVASc score is 3. The patient received a bolus of Cardizem in the ED and continued on drip. HR better but still elevated. Now his blood pressures are labile at times. Was also given Digoxin IV x1 for rate control. Anticoagulate with therapeutic SC Lovenox started. TSH low at 0.3 but FT4 normal. Echo ordered. Cardiology consulted and are following along. (5) Acute renal failure: Qualifiers: Acute renal failure type: unspecified Qualified Code(s): N17.9 - Acute kidney failure, unspecified Code(s): N17.9 - Acute kidney failure, unspecified Status: Acute Assessment and Plan: Cr 1.4 on admission. Cr improved today with IV fluids. Cr 1.0 now. Likely secondary to sepsis and hypoperfusion. Stop IV fluids in the face of COVID. Monitor renal function and urine output. (6) Diabetes: Qualifiers: Diabetes mellitus complication status: without complication Diabetes mellitus terminal press operator insulin use: without terminal press operator use Diabetes mellitus type: type 2 Qualified Code(s): E11.9 - Type 2 diabetes mellitus without complications Code(s): E11.9 - Type 2 diabetes mellitus without complications Status: Acute Assessment and Plan: The patient's blood glucose was reviewed on 05/30 Glucose remains poorly controlled felt related to Dexamethasone. Continue AccuCheks covering with sliding scale. Hypoglycemia protocol available as needed. Continue current medications. Add Levemir (7) Benign essential HTN: Code(s): I10 - Essential (primary) hypertension Status: Acute Assessment and Plan: Patient's blood pressure was reviewed on 05/30 Blood pressure remains well controlled. Will continue to monitor Subjective Date/time seen: 05/30/20 11:47 Interval history: Date of service 05/30/2020 65yo male with DM and recently tested positive for COVID last week here for SOB and found to be in AFib/RVR. Patient still feels short of breath even at rest. He has focal chest pain associsted with coughing. He is coughing up whitish sputum. Cough is better overall. He has been up ambulating to the bathroom. No nausea, vomiting or diarrhea. He did have diarrhea prior to admission. Exam Narrative: Exam Narrative: Tm 102.8 98.4 115/68 123 91% 1L Gen - NARD lying semireumbent in bed Chest - distant, clear BS; nml RR CV - irregularly irregular; Tele showing PVCs, AFib/RVR Abd - Soft, NT/ND, Positive BS Ext - No pedal edema, 2+ DP Psych - Nml mood and affect Skin - Warm and dry Objective Data
[2020-05-30 12:48] LABS: Glucose Point of Care 200 (65-105)
[2020-05-30 13:02] LABS: Total Triiodothyronine (T3) 1.16 NG/ML (0.97-1.69)
--- NOTE | 2020-05-30 14:08 | PC.NURSE ---
Alivia Blake NP notified of patient's HR as high as 180 when sitting up to eat lunch. Pt asymptomatic. Continue to monitor
[2020-05-30] MEDS: POTASSIUM CHLORIDE 20 MEQ TABLET 40 MEQ PO (16:45)
[2020-05-30] MEDS: METOPROLOL TARTRATE INJ 5 MG/5 ML VIAL IV PUSH (16:45)
[2020-05-30 16:51] LABS: Glucose Point of Care 355 (65-105)
[2020-05-30] MEDS: METOPROLOL TARTRATE 25 MG TABLET PO (22:08)
[2020-05-30] MEDS: INSULIN DETEMIR 100 UNITS/ML 8 UNITS SUB-Q (22:08)
[2020-05-30 22:19] LABS: Glucose Point of Care 326 (65-105)
[2020-05-31] VITALS (24 sets, daily range): BP systolic 97–118; BP diastolic 54–73; PULSE 82–168; RESP 16–22; TEMP 36.4–36.7; O2SAT 80–96
[2020-05-31] MEDS: LEVALBUTEROL HFA (*SP) 15 GM INHALER 2 PUFF INHALATION ×3 (03:35→22:07)
[2020-05-31] MEDS: METOPROLOL TARTRATE 25 MG TABLET PO ×4 (05:20→23:28)
[2020-05-31] MEDS: ENOXAPARIN 100 MG/ML SYRINGE SUB-Q ×2 (08:44→21:49)
[2020-05-31] MEDS: DEXAMETHASONE SOD PHOS INJ 4 MG/ML VIAL 6 MG IV PUSH (08:44)
[2020-05-31] MEDS: FAMOTIDINE 20 MG/2 ML VIAL IV PUSH ×2 (08:45→21:49)
[2020-05-31] MEDS: INSULIN DETEMIR 100 UNITS/ML 8 UNITS SUB-Q (08:51)
[2020-05-31] MEDS: INSULIN ASPART (*BKC) 100 UNITS/ML SUB-Q ×3 (08:58→18:19)
[2020-05-31 09:05] LABS: Glucose Point of Care 215 (65-105)
[2020-05-31] MEDS: DIGOXIN INJ 250 MCG/ML 2 ML AMP (*BKC) 500 MCG IV PUSH (11:00)
[2020-05-31 11:37] LABS: Basophils Percent Auto 0.4 % (0.2-1.2); Eosinophils Absolute Auto 3.3 K/mm3 (0-0.3); Eosinophils Percent Auto 35.2 % (0-4.4); Hematocrit 44.4 % (42.0-52.0); Hemoglobin 14.6 g/dL (14.0-18.0); Immature Granulocyte Absolute 0.04 K/mm3 (0.00-0.031); Immature Granulocyte Percent A 0.4 % (0-0.5); Lymphocytes Absolute Auto 0.42 K/mm3 (0.9-3.2); Lymphocytes Percent Auto 4.5 % (18.3-44.2); Mean Corpuscular HGB Conc 32.9 g/dl (32-36); Mean Corpuscular Hemoglobin 28.6 pg (26-34); Mean Corpuscular Volume 87.1 fl (80-100); Monocytes Absolute Auto 0.6 K/mm3 (0.1-0.6); Monocytes Percent Auto 6.4 % (2.6-8.5); Neutrophils Absolute Auto 4.9 K/mm3 (1.3-6.7); Neutrophils Percent Auto 53.1 % (45.5-73.1); Platelet Count Result 216 k/mm3 (150-375); Red Cell Distribution Width 12.8 % (11.5-14.5); White Blood Count 9.3 K/mm3 (4.5-10.0)
[2020-05-31 11:50] LABS: Alanine Aminotransferase 27 U/L (4-50); Albumin Level 3.1 g/dL (3.5-5.1); Alkaline Phosphatase 68 U/L (38-126); Anion Gap 10 mmol/L (8-16); Aspartate Amino Transferase 36 U/L (17-59); Bilirubin,Total 0.7 mg/dL (0.2-1.3); Blood Urea Nitrogen 35 mg/dL (9-20); Calcium 8.4 mg/dL (8.4-10.2); Carbon Dioxide 22 mmol/L (22-30); Chloride 103 mmol/L (98-107); Estimated CRCL calculation 76 ml/min; Estimated Glomerular Filt Rate > 60; Glucose 209 mg/dL (75-110); Phosphorus 2.3 mg/dL (2.5-4.5); Potassium 4.4 mmol/L (3.4-5.0); Sodium 135 mmol/L (137-145)
[2020-05-31 11:52] LABS: Hemoglobin A1C 12.1 % (<5.7)
[2020-05-31 12:44] LABS: Glucose Point of Care 207 (65-105)
[2020-05-31 12:56] LABS: Vancomycin Trough 14.8 ug/mL (10.0-20.0)
--- NOTE | 2020-05-31 15:25 | PM.PNCARD ---
Progress Note: A&P Assessment and Plan (1) Atrial fibrillation with rapid ventricular response: Code(s): I48.91 - Unspecified atrial fibrillation Status: Acute Assessment and Plan: 65-year-old male with hypertension, diabetes mellitus, admitted to the hospital with COVID-19 infection. Found to be in atrial fibrillation with RVR. On review of EKGs in the chart he was in atrial fibrillation on 05/25/2020. It is unknown how long he has been in atrial fibrillation prior to that EKG (sinus rhytym 04/25/2020). - Remains in AFib with RVR, triggered by underlying COVID 19 pneumonia. His blood pressure is soft now. Heart rates have been up to the 160's with activit. Continue IV diltiazem. Will decrease to 10 mg/hr at 1800 to try to gain a little BP room and increase metoprolol 25 mg po to q 6 hours. Received digoxin 500 mcg at 1100 with no effect. - Continue anticoagulation with low-molecular weight heparin. Need for long-term anticoagulation to be determined. - Echo 05/30/2020: Left ventricular systolic function is normal, estimated at 55-60%. There is mildly increased left ventricular wall thickness. Left atrial chamber dimension is mildly enlarged. There is no aortic valve stenosis. No pulmonary hypertension, estimated pulmonary arterial systolic pressure is 29 mmHg. There is trace tricuspid valve regurgitation. (2) Pneumonia due to COVID-19 virus: Code(s): U07.1 - COVID-19; J12.89 - Other viral pneumonia Status: Acute Assessment and Plan: appropriate antibiotics, steroids, management as per primary team (3) Acute respiratory failure with hypoxia: Code(s): J96.01 - Acute respiratory failure with hypoxia Status: Acute Assessment and Plan: supplemental oxygen, management as per primary team Additional Plan Plan discussed with Dr Marrero 1530 05/31/2020 by phone. Subjective Date/time seen: 05/31/20 15:25 Interval history: Follow up for: positive for COVID last week. Admitted for SOB and found to be in AFib/RVR. Date of service: 05/31/2020 Subjective: Some chest heaviness when laying supine. Better when sitting up. Short of breath with activity. Trying to take in deep breaths. Some lightheadedness this morning but not at this time. Can feel his heart racing. Denies nausea, vomiting or diarrhea. Review of Systems Constitutional: Constitutional: Reports fatigue Eyes: Eyes: Denies blurry vision ENT: Reports Normal hearing present, Denies headache(s) and Denies epistaxis Cardiovascular: Cardiovascular: Reports rapid heart rate, Denies leg edema, Reports lightheadedness (episode this morning but not at this time) and Reports dyspnea on exertion Respiratory: Respiratory: Reports cough and Reports dyspnea on exertion Gastrointestinal: Gastrointestinal: Denies diarrhea, Denies nausea and Denies vomiting Genitourinary: Genitourinary: Denies hematuria Musculoskeletal: Musculoskeletal: Denies myalgias Integumentary/Breasts: Skin/Breast: Denies erythema and Denies rash Neurologic: Reports Normal hearing present and Denies dizziness Psychiatric: Psychiatric: Denies anxiety and Denies depression Endocrine: Endocrine: Denies flushing and Denies heat intolerance Hematologic/Lymphatic: Hematologic/Lymphatic: Denies easy bleeding and Denies easy bruising Allergic/Immunologic: Allergic/Immunologic: Denies throat swelling and Denies tongue swelling Exam Narrative: Exam Narrative: PHYSICAL EXAMINATION: limited to inspection GENERAL: Alert, oriented MENTAL STATUS: affect appropriate to mood EYES: Extraocular movements intact EARS: hearing grossly normal Respiratory:respirations even and unlabored. Oxygen at 3L/nasal cannula HEART: irregular rhythm NEUROLOGICAL: Alert, oriented, normal speech MUSCULOSKELETAL
--- NOTE | 2020-05-31 17:45 | PM.IMPN ---
Progress Note: A&P Assessment and Plan (1) Acute respiratory failure with hypoxia: Code(s): J96.01 - Acute respiratory failure with hypoxia Status: Acute Assessment and Plan: Related to COVID PNA and possibly underlying bacterial PNA. Continue oxygen supplementation and wean off as tolerated. Continue treatment of COVID pneumonia as detailed below. (2) Pneumonia due to COVID-19 virus: Code(s): U07.1 - COVID-19; J12.89 - Other viral pneumonia Status: Acute Assessment and Plan: Gilberto tested positive for COVID on 05/25/20. He has been started on Decardon. He was down to 1L yesterday so Remdesivir was held. Now requiring higher dose of O2 today. Will add Redesivir tonight. Continue droplet isolation, supportive care. (3) Severe sepsis: Code(s): A41.9 - Sepsis, unspecified organism; R65.20 - Severe sepsis without septic shock Status: Acute Assessment and Plan: Sepsis present on admission with tachycardia, fever, tachypnea, and elevated lactic acid level. CXR showing increasing bilateral PNA. Source of sepsis appears to be pulmonary. Blood cultures NGTD. Monitor vital signs and urine output closely. Continue IV antibiotics. Has higher O2 requirement which could be worsening PNA of developing pulm edema. Repeat CXR in the morning. (4) Atrial fibrillation with rapid ventricular response: Code(s): I48.91 - Unspecified atrial fibrillation Status: Acute Assessment and Plan: New onset Atrial fibrillation w/ RVR - CHADSVASc score is 3. The patient received a bolus of Cardizem in the ED and continued on drip. HR still elevated. Now his blood pressures are labile at times. Was also given Digoxin 500mg IV given on 05/30 and again 05/31. Anticoagulation with therapeutic SC Lovenox started. TSH low at 0.3 but FT4 normal. Echo with EF 55-60%. Cardiology following and appreciate their input. Will schedule Digoxin since he is still uncontrolled with low BP. Consider Amio. (5) Acute renal failure: Qualifiers: Acute renal failure type: unspecified Qualified Code(s): N17.9 - Acute kidney failure, unspecified Code(s): N17.9 - Acute kidney failure, unspecified Status: Acute Assessment and Plan: Cr 1.4 on admission. Cr improved today with IV fluids. Cr 1.0 now. Likely secondary to sepsis and hypoperfusion. Monitor renal function and urine output. (6) Diabetes: Qualifiers: Diabetes mellitus complication status: without complication Diabetes mellitus mcc insulin use: without manager terminal use Diabetes mellitus type: type 2 Qualified Code(s): E11.9 - Type 2 diabetes mellitus without complications Code(s): E11.9 - Type 2 diabetes mellitus without complications Status: Acute Assessment and Plan: A1c 12.1. The patient's blood glucose was reviewed on 05/31 Glucose remains poorly controlled felt related to Dexamethasone and that he is poorly controlled prior to admisison. Continue AccuCheks covering with sliding scale. Hypoglycemia protocol available as needed. Continue current medications. Advance Levemir (7) Benign essential HTN: Code(s): I10 - Essential (primary) hypertension Status: Acute Assessment and Plan: Patient's blood pressure was reviewed on 05/31 Blood pressure remains well controlled, even soft at times. Medications are being adjusted. Will continue to monitor Subjective Date/time seen: 05/31/20 17:45 Interval history: Date of service 05/31 65yo male with DM and recently tested positive for COVID last week here for SOB and found to be in AFib/RVR. Patient still with chest pain but constatnt worse with cough. Mostly feels he has trouble taking a deep breath. Slight nausea but eating okay. Exam Narrative: Exam Narrative: AF 98.0 97/73 148 16 94% 3L Gen - NARD lying semirecumbent in bed Chest - bibasilar inspiratory crackles, n
[2020-05-31] MEDS: guaiFENesin/DEXTROMETHORPHAN 10 ML UDC PO (18:10)
[2020-05-31 18:50] LABS: Glucose Point of Care 290 (65-105)
[2020-05-31] MEDS: MELATONIN 3 MG TABLET PO (21:49)
[2020-05-31] MEDS: REMDESIVIR 200 MG/NS 250 ML 200 MG/250 ML BAG 250 MG IVPB (21:50)
[2020-05-31] MEDS: INSULIN DETEMIR 100 UNITS/ML 12 UNITS SUB-Q (21:52)
[2020-05-31 22:37] LABS: Glucose Point of Care 318 (65-105)
--- NOTE | 2020-05-31 23:53 | PC.NURSE ---
Increase heartrate sustaining in 140s. changed cardizem gtt to 15ml per communication
[2020-06-01] VITALS (21 sets, daily range): BP systolic 97–147; BP diastolic 58–107; PULSE 98–132; RESP 18–22; TEMP 36.4–36.7; O2SAT 92–99
[2020-06-01 02:44] LABS: Pneumococcal Antigen Urine Not Detected (Not Detected)
[2020-06-01] MEDS: METOPROLOL TARTRATE 25 MG TABLET PO ×2 (04:50→11:41)
[2020-06-01] MEDS: guaiFENesin/DEXTROMETHORPHAN 10 ML UDC PO (04:51)
[2020-06-01] MEDS: LEVALBUTEROL HFA (*SP) 15 GM INHALER 2 PUFF INHALATION ×7 (05:28→21:21)
[2020-06-01 05:35] LABS: Basophils Percent Auto 0.1 % (0.2-1.2); Hematocrit 40.3 % (42.0-52.0); Hemoglobin 13.3 g/dL (14.0-18.0); Immature Granulocyte Absolute 0.05 K/mm3 (0.00-0.031); Immature Granulocyte Percent A 0.7 % (0-0.5); Lymphocytes Absolute Auto 0.46 K/mm3 (0.9-3.2); Lymphocytes Percent Auto 6.4 % (18.3-44.2); Mean Corpuscular Hemoglobin 28.4 pg (26-34); Mean Corpuscular Volume 85.9 fl (80-100); Mean Platelet Volume 11.2 fl (7.4-10.4); Monocytes Absolute Auto 0.5 K/mm3 (0.1-0.6); Monocytes Percent Auto 6.8 % (2.6-8.5); Neutrophils Absolute Auto 6.2 K/mm3 (1.3-6.7); Platelet Count Result 297 k/mm3 (150-375); Red Blood Count 4.69 M/mm3 (4.6-6.20); Red Cell Distribution Width 12.5 % (11.5-14.5); White Blood Count 7.2 K/mm3 (4.5-10.0)
[2020-06-01 05:44] LABS: Alanine Aminotransferase 46 U/L (4-50); Alkaline Phosphatase 77 U/L (38-126); Anion Gap 9 mmol/L (8-16); Aspartate Amino Transferase 52 U/L (17-59); Bilirubin,Total 0.4 mg/dL (0.2-1.3); Blood Urea Nitrogen 30 mg/dL (9-20); Calcium 8.2 mg/dL (8.4-10.2); Carbon Dioxide 26 mmol/L (22-30); Chloride 101 mmol/L (98-107); Estimated CRCL calculation 84 ml/min; Estimated Glomerular Filt Rate > 60; Glucose 291 mg/dL (75-110); Phosphorus 2.8 mg/dL (2.5-4.5); Potassium 4.3 mmol/L (3.4-5.0); Sodium 136 mmol/L (137-145)
[2020-06-01] MEDS: INSULIN ASPART (*BKC) 100 UNITS/ML SUB-Q ×2 (08:46→13:10)
[2020-06-01] MEDS: INSULIN DETEMIR 100 UNITS/ML 12 UNITS SUB-Q (08:47)
[2020-06-01] MEDS: DEXAMETHASONE SOD PHOS INJ 4 MG/ML VIAL 6 MG IV PUSH (08:47)
[2020-06-01] MEDS: FAMOTIDINE 20 MG/2 ML VIAL IV PUSH ×2 (08:47→22:41)
[2020-06-01] MEDS: ENOXAPARIN 100 MG/ML SYRINGE SUB-Q ×2 (08:48→22:40)
[2020-06-01] MEDS: DIGOXIN 250 MCG TABLET PO (08:48)
[2020-06-01 08:59] LABS: Glucose Point of Care 296 (65-105)
--- NOTE | 2020-06-01 11:45 | PM.PNCARD ---
Progress Note: A&P Assessment and Plan (1) Atrial fibrillation with rapid ventricular response: Code(s): I48.91 - Unspecified atrial fibrillation Status: Acute Assessment and Plan: 65-year-old male with hypertension, diabetes mellitus, admitted to the hospital with COVID-19 infection. Found to be in atrial fibrillation with RVR. On review of EKGs in the chart he was in atrial fibrillation on 05/25/2020. It is unknown how long he has been in atrial fibrillation prior to that EKG (sinus rhytym 04/25/2020). - Remains in AFib with RVR, triggered by underlying COVID 19 pneumonia. His blood pressure is soft now. Heart rate better than yesterday. Rare excursion into the 150s to 160 with activity. Heart rates generally in the 115- 120s. -Continue IV diltiazem. Will decrease to 10 mg/hr to try to gain a little BP room in an attempt to increase metoprolol to 50 mg po q 6 hours and wean off diltiazem drip. Received digoxin 500 mcg 05/30 and 05/31. P.O. digoxin started this morning by . - Continue anticoagulation with low-molecular weight heparin. Need for long-term anticoagulation to be determined. - Echo 05/30/2020: Left ventricular systolic function is normal, estimated at 55-60%. There is mildly increased left ventricular wall thickness. Left atrial chamber dimension is mildly enlarged. There is no aortic valve stenosis. No pulmonary hypertension, estimated pulmonary arterial systolic pressure is 29 mmHg. There is trace tricuspid valve regurgitation. (2) Pneumonia due to COVID-19 virus: Code(s): U07.1 - COVID-19; J12.89 - Other viral pneumonia Status: Acute Assessment and Plan: Appropriate antibiotics, steroids, management as per primary team. Requiring 3 L of nasal cannula oxygen. (3) Acute respiratory failure with hypoxia: Code(s): J96.01 - Acute respiratory failure with hypoxia Status: Acute Assessment and Plan: Supplemental oxygen, management as per primary team Additional Plan Plan discussed with Dr Marrero 1155 06/21/2020 Subjective Date/time seen: 06/01/20 11:45 Interval history: Follow up for: positive for COVID last week. Admitted for SOB and found to be in AFib/RVR. Date of service: 06/01/2020 Subjective: Still with chest heaviness when laying supine. Better when sitting up. Short of breath with activity improving. Trying to take in deep breaths. Occasional nausea. No vomiting. Stools are still loose. Review of Systems Constitutional: Constitutional: Reports fatigue and Denies headache(s) Eyes: Eyes: Denies blurry vision ENT: Reports Normal hearing present, Denies epistaxis, Denies throat swelling and Denies tongue swelling Cardiovascular: Cardiovascular: Reports chest pain (Chest pressure especially supine), Denies leg edema, Reports lightheadedness (episode this morning but not at this time) and Reports dyspnea on exertion (Improving) Respiratory: Respiratory: Reports cough and Reports dyspnea on exertion (Improving) Gastrointestinal: Gastrointestinal: Reports loose stools, Denies nausea and Denies vomiting Genitourinary: Genitourinary: Denies hematuria Musculoskeletal: Musculoskeletal: Denies myalgias Integumentary/Breasts: Skin/Breast: Denies erythema and Denies rash Neurologic: Reports Normal hearing present, Denies dizziness and Denies headache(s) Psychiatric: Psychiatric: Denies anxiety and Denies depression Endocrine: Endocrine: Reports fatigue, Denies flushing and Denies heat intolerance Hematologic/Lymphatic: Hematologic/Lymphatic: Denies easy bleeding and Denies easy bruising Allergic/Immunologic: Allergic/Immunologic: Denies throat swelling and Denies tongue swelling Exam Narrative: Exam Narrative: PHYSICAL EXAMINATION: limited to inspection GENERAL: Alert, oriented MENTAL STATUS: affect jonlele
--- NOTE | 2020-06-01 12:29 | PM.IMPN ---
Progress Note: A&P Assessment and Plan (1) Acute respiratory failure with hypoxia: Code(s): J96.01 - Acute respiratory failure with hypoxia Status: Acute Assessment and Plan: Related to COVID PNA and possibly underlying bacterial PNA +/- AFib/RVR. Continue oxygen supplementation and wean off as tolerated. Continue treatment of COVID pneumonia as detailed below. (2) Pneumonia due to COVID-19 virus: Code(s): U07.1 - COVID-19; J12.89 - Other viral pneumonia Status: Acute Assessment and Plan: Patient tested positive for COVID on 05/25/20. He has been started on Decardon Day 4 (received a dose in ED). He was on down to 1L so Remdesivir was held but increased to 3L so Remdesivir added now Day 2. Check inflammatory markers. Continue droplet isolation, supportive care. (3) Severe sepsis: Code(s): A41.9 - Sepsis, unspecified organism; R65.20 - Severe sepsis without septic shock Status: Acute Assessment and Plan: Sepsis present on admission with tachycardia, fever, tachypnea, and elevated lactic acid level. CXR today showing bilateal airspace disease. Source of sepsis appears to be pulmonary. Blood cultures NGTD. WBC normal and no fevers. Monitor vital signs and urine output closely. Positive fluid balance but hold on Lasix as we try to control HR. Continue IV antibiotics. Was having higher O2 requirements which could be worsening PNA and/or developing pulm edema. Wean O2 as toelrated. (4) Atrial fibrillation with rapid ventricular response: Code(s): I48.91 - Unspecified atrial fibrillation Status: Acute Assessment and Plan: New onset Atrial fibrillation w/ RVR - CHADSVASc score is 3. The patient received a bolus of Cardizem in the ED and continued on drip. HR still elevated. Now his blood pressures are labile at times. Was also given Digoxin 500mg IV given on 05/30 and again 05/31. Anticoagulation with therapeutic SC Lovenox started. TSH low at 0.3 but FT4 normal. Echo with EF 55-60%. Metoprolol added and advanced today. Diltiazem drip being weaned off. Oral Digoxin added. Cardiology following and appreciate their input. Remdesivir can also lower HR. (5) Acute renal failure: Qualifiers: Acute renal failure type: unspecified Qualified Code(s): N17.9 - Acute kidney failure, unspecified Code(s): N17.9 - Acute kidney failure, unspecified Status: Acute Assessment and Plan: Cr 1.4 on admission. Cr improved with IV fluids to 0.9 now. IV fluids off quickly due to COVID. Likely secondary to sepsis and hypoperfusion. Monitor renal function and urine output. (6) Diabetes: Qualifiers: Diabetes mellitus complication status: without complication Diabetes mellitus terminal gauger insulin use: without terminal gauger use Diabetes mellitus type: type 2 Qualified Code(s): E11.9 - Type 2 diabetes mellitus without complications Code(s): E11.9 - Type 2 diabetes mellitus without complications Status: Acute Assessment and Plan: A1c 12.1. The patient's blood glucose was reviewed on 06/01 Glucose remains poorly controlled felt related to Dexamethasone and that he is poorly controlled prior to admission. Continue AccuCheks covering with sliding scale. Hypoglycemia protocol available as needed. Continue current medications. Continue to advance Levemir (7) Benign essential HTN: Code(s): I10 - Essential (primary) hypertension Status: Acute Assessment and Plan: Patient's blood pressure was reviewed on 06/01 Blood pressure remains well controlled, even soft at times. Medications are being adjusted. Will continue to monitor Subjective Date/time seen: 06/01/20 12:29 Interval history: Date of service 06/01 65yo male with DM and recently tested positive for COVID last week here for SOB and found to be in AFib/RVR. Feels better. Still with soft stools. Eating okay,. No CP.
[2020-06-01 13:33] LABS: Glucose Point of Care 221 (65-105)
[2020-06-01 16:18] LABS: Glucose Point of Care 446 (65-105)
[2020-06-01] MEDS: INSULIN ASPART (*BKC) 100 UNITS/ML 12 UNITS SUB-Q (18:00)
[2020-06-01] MEDS: METOPROLOL TARTRATE 50 MG TAB PO ×2 (18:46→22:41)
[2020-06-01 21:31] LABS: Legionella pneumophila Ag Ur Not Detected (Not Detected)
[2020-06-01 21:53] LABS: Glucose Point of Care 331 (65-105)
[2020-06-01] MEDS: REMDESIVIR 100 MG/NS 250 ML 100 MG/250 ML BAG 250 MG IVPB (22:39)
[2020-06-01] MEDS: MELATONIN 3 MG TABLET PO (22:43)
[2020-06-01] MEDS: INSULIN DETEMIR 100 UNITS/ML 18 UNITS SUB-Q (22:44)
[2020-06-02] VITALS (18 sets, daily range): BP systolic 108–169; BP diastolic 64–100; PULSE 69–123; RESP 18–22; TEMP 36.2–36.6; O2SAT 92–99
[2020-06-02 05:52] LABS: Basophils Percent Auto 0.3 % (0.2-1.2); Hematocrit 41.1 % (42.0-52.0); Hemoglobin 13.4 g/dL (14.0-18.0); Immature Granulocyte Absolute 0.13 K/mm3 (0.00-0.031); Immature Granulocyte Percent A 1.9 % (0-0.5); Lymphocytes Absolute Auto 0.53 K/mm3 (0.9-3.2); Lymphocytes Percent Auto 7.9 % (18.3-44.2); Mean Corpuscular HGB Conc 32.6 g/dl (32-36); Mean Corpuscular Hemoglobin 27.4 pg (26-34); Mean Platelet Volume 10.9 fl (7.4-10.4); Monocytes Absolute Auto 0.5 K/mm3 (0.1-0.6); Monocytes Percent Auto 7.3 % (2.6-8.5); Neutrophils Absolute Auto 5.6 K/mm3 (1.3-6.7); Neutrophils Percent Auto 82.6 % (45.5-73.1); Platelet Count Result 336 k/mm3 (150-375); Red Blood Count 4.89 M/mm3 (4.6-6.20); Red Cell Distribution Width 12.4 % (11.5-14.5); White Blood Count 6.8 K/mm3 (4.5-10.0)
[2020-06-02] MEDS: METOPROLOL TARTRATE 50 MG TAB PO ×3 (06:30→17:49)
[2020-06-02 07:13] LABS: Alanine Aminotransferase 115 U/L (4-50); Albumin Level 2.9 g/dL (3.5-5.1); Alkaline Phosphatase 96 U/L (38-126); Anion Gap 5 mmol/L (8-16); Aspartate Amino Transferase 109 U/L (17-59); Bilirubin,Total 0.5 mg/dL (0.2-1.3); Blood Urea Nitrogen 28 mg/dL (9-20); Calcium 8.4 mg/dL (8.4-10.2); Carbon Dioxide 30 mmol/L (22-30); Chloride 103 mmol/L (98-107); Estimated CRCL calculation 76 ml/min; Estimated Glomerular Filt Rate > 60; Glucose 255 mg/dL (75-110); Lactate Dehydrogenase 641 U/L (313-618); Phosphorus 3.3 mg/dL (2.5-4.5); Potassium 4.3 mmol/L (3.4-5.0); Sodium 138 mmol/L (137-145)
--- NOTE | 2020-06-02 09:16 | PM.IMPN ---
Progress Note: A&P Assessment and Plan (1) Acute respiratory failure with hypoxia: Code(s): J96.01 - Acute respiratory failure with hypoxia Status: Acute Assessment and Plan: Related to COVID PNA and possibly underlying bacterial PNA +/- AFib/RVR (causing fluid overload). Continue oxygen supplementation and wean off as tolerated. Continue treatment of COVID pneumonia as detailed below. Wean O2 as tolerated. (2) Pneumonia due to COVID-19 virus: Code(s): U07.1 - COVID-19; J12.89 - Other viral pneumonia Status: Acute Assessment and Plan: Patient tested positive for COVID on 05/25/20. He has been started on Decardon Day 5 (received a dose in ED). He was on down to room air so Remdesivir was held initially but increased to 3L so Remdesivir added now Day 3. CRP 4, LDH 641, Ferritin 787. LFTs elevated now probably from Remdesivir. Being covered for bacterial PNA Day 4. Follow inflammatory markers and LFTs. Continue droplet isolation and supportive care. (3) Severe sepsis: Code(s): A41.9 - Sepsis, unspecified organism; R65.20 - Severe sepsis without septic shock Status: Acute Assessment and Plan: Sepsis present on admission with tachycardia, fever, tachypnea, and elevated lactic acid level. CXR yesterday showing bilateral airspace disease. Source of sepsis appears to be pulmonary. Blood cultures NGTD. WBC normal and no fevers. Positive fluid balance but hold on Lasix as we try to control HR. Continue IV antibiotics. Was having higher O2 requirements which could be worsening PNA and/or developing pulm edema. Wean O2 as tolerated. (4) Atrial fibrillation with rapid ventricular response: Code(s): I48.91 - Unspecified atrial fibrillation Status: Acute Assessment and Plan: New onset Atrial fibrillation w/ RVR - CHADSVASc score is 3. The patient received a bolus of Cardizem in the ED and continued on drip. HR still elevated. His blood pressures are labile at times but better. Was also given Digoxin 500mg IV given on 05/30 and again 05/31. Anticoagulation with therapeutic SC Lovenox started. TSH low at 0.3 but FT4 normal. Echo with EF 55-60%. Metoprolol added and advanced. Diltiazem drip being weaned off. Oral Digoxin added. HR much better with average around 105 by tele. Cardiology following and appreciate their input. Remdesivir can also lower HR. Discussed with cards with plans to transition to oral meds. Also plan to change to Eliquis. Will need case management to determine if he can afford. (5) Acute renal failure: Qualifiers: Acute renal failure type: unspecified Qualified Code(s): N17.9 - Acute kidney failure, unspecified Code(s): N17.9 - Acute kidney failure, unspecified Status: Acute Assessment and Plan: Cr 1.4 on admission. Cr improved with IV fluids and now at 1.0 now. IV fluids off quickly due to COVID. Good UOP. Likely secondary to sepsis and hypoperfusion. Continue to monitor renal function and urine output. (6) Diabetes: Qualifiers: Diabetes mellitus complication status: without complication Diabetes mellitus retirement insulin use: without director long term care use Diabetes mellitus type: type 2 Qualified Code(s): E11.9 - Type 2 diabetes mellitus without complications Code(s): E11.9 - Type 2 diabetes mellitus without complications Status: Acute Assessment and Plan: A1c 12.1. The patient's blood glucose was reviewed on 06/02 Glucose remains poorly controlled felt related to Dexamethasone and that he is poorly controlled prior to admission. Continue AccuCheks covering with sliding scale. Hypoglycemia protocol available as needed. Continue current medications. Continue to advance Levemir again (7) Benign essential HTN: Code(s): I10 - Essential (primary) hypertension Status: Acute Assessment and Plan: Patient's blood pressure was reviewed on 06/02
[2020-06-02] MEDS: LEVALBUTEROL HFA (*SP) 15 GM INHALER 2 PUFF INHALATION ×2 (09:35→14:48)
[2020-06-02 09:41] LABS: Glucose Point of Care 255 (65-105)
--- NOTE | 2020-06-02 12:12 | PM.PNCARD ---
Progress Note: A&P Assessment and Plan (1) Atrial fibrillation with rapid ventricular response: Code(s): I48.91 - Unspecified atrial fibrillation Status: Acute Assessment and Plan: 65-year-old male with hypertension, diabetes mellitus, admitted to the hospital with COVID-19 infection. Found to be in atrial fibrillation with RVR. On review of EKGs in the chart he was in atrial fibrillation on 05/25/2020. It is unknown how long he has been in atrial fibrillation prior to that EKG (sinus rhytym 04/25/2020). - Remains in AFib with RVR, triggered by underlying COVID 19 pneumonia. Blood pressure improving. Heart rate control continues to improve. -stop digoxin. Continue Metoprolol 50 mg every 6 hours. Discontinue Cardizem drip and start short-acting diltiazem 30 mg every 6 hours. -stop enoxaparin. Chads Vasc score is 3. Anticoagulation is appropriate. Start Eliquis 5 mg every 12 hours. First dose now. - Echo 05/30/2020: Left ventricular systolic function is normal, estimated at 55-60%. There is mildly increased left ventricular wall thickness. Left atrial chamber dimension is mildly enlarged. There is no aortic valve stenosis. No pulmonary hypertension, estimated pulmonary arterial systolic pressure is 29 mmHg. There is trace tricuspid valve regurgitation. (2) Pneumonia due to COVID-19 virus: Code(s): U07.1 - COVID-19; J12.89 - Other viral pneumonia Status: Acute Assessment and Plan: Appropriate antibiotics, steroids, management as per primary team. Continue to wean oxygen as able (3) Acute respiratory failure with hypoxia: Code(s): J96.01 - Acute respiratory failure with hypoxia Status: Acute Assessment and Plan: Supplemental oxygen, management as per primary team Additional Plan Plan discussed with Dr. Abreu 1220 06/02/2020 Subjective Date/time seen: 06/02/20 12:12 Interval history: Follow up for: positive for COVID last week. Admitted for SOB and found to be in AFib/RVR. Date of service: 06/02/2020 Subjective: Tired. Did not sleep well last night. Chest discomfort with cough. breathing is better. Still with cough. When starts hard to stop . No lightheadedness or nausea. Stools are not as soft. Good appetite. Review of Systems Constitutional: Constitutional: Reports fatigue and Denies headache(s) Eyes: Eyes: Denies blurry vision ENT: Reports Normal hearing present, Denies dizziness, Denies headache(s), Denies epistaxis, Denies throat swelling and Denies tongue swelling Cardiovascular: Cardiovascular: Reports chest pain (Chest pressure especially supine), Denies leg edema, Denies lightheadedness and Reports dyspnea on exertion (Improving) Respiratory: Respiratory: Reports cough and Reports dyspnea on exertion (Improving) Gastrointestinal: Gastrointestinal: Reports loose stools (Improved), Denies nausea and Denies vomiting Genitourinary: Genitourinary: Denies hematuria Musculoskeletal: Musculoskeletal: Denies myalgias Integumentary/Breasts: Skin/Breast: Denies erythema and Denies rash Neurologic: Reports Normal hearing present, Denies dizziness and Denies headache(s) Psychiatric: Psychiatric: Denies anxiety and Denies depression Endocrine: Endocrine: Reports fatigue, Denies flushing and Denies heat intolerance Hematologic/Lymphatic: Hematologic/Lymphatic: Denies easy bleeding and Denies easy bruising Allergic/Immunologic: Allergic/Immunologic: Denies throat swelling and Denies tongue swelling Exam Narrative: Exam Narrative: PHYSICAL EXAMINATION: limited to inspection GENERAL: Alert, oriented MENTAL STATUS: affect appropriate to mood EYES: Extraocular movements intact EARS: hearing grossly normal Respiratory:respirations even and unlabored. Oxygen down to 1.5L/nasal cannula. HEART: irregular rhythm. Tachy
[2020-06-02 12:43] LABS: Glucose Point of Care 278 (65-105)
[2020-06-02] MEDS: DEXAMETHASONE SOD PHOS INJ 4 MG/ML VIAL 6 MG IV PUSH (12:46)
[2020-06-02] MEDS: guaiFENesin/DEXTROMETHORPHAN 10 ML UDC PO (12:46)
[2020-06-02] MEDS: AZITHROMYCIN 250 MG TABLET PO (12:47)
[2020-06-02] MEDS: FAMOTIDINE 20 MG TABLET PO ×2 (12:48→20:01)
[2020-06-02] MEDS: dilTIAZem HCL 30 MG TABLET PO ×2 (12:48→17:50)
[2020-06-02] MEDS: APIXABAN 5 MG TABLET PO ×2 (12:49→20:01)
[2020-06-02] MEDS: INSULIN ASPART (*BKC) 100 UNITS/ML SUB-Q ×2 (12:49→17:49)
[2020-06-02 15:28] LABS: Vancomycin Trough 18.5 ug/mL (10.0-20.0)
[2020-06-02 17:01] LABS: Glucose Point of Care 308 (65-105)
[2020-06-02] MEDS: REMDESIVIR 100 MG/NS 250 ML 100 MG/250 ML BAG 250 MG IVPB (20:01)
[2020-06-02] MEDS: MELATONIN 3 MG TABLET PO (20:01)
[2020-06-02] MEDS: INSULIN DETEMIR 100 UNITS/ML 30 UNITS SUB-Q (20:16)
[2020-06-02 21:10] LABS: Glucose Point of Care > 500 (65-105)
[2020-06-02 21:10] LABS: Glucose Point of Care > 500 (65-105)
[2020-06-02] MEDS: INSULIN ASPART (*BKC) 100 UNITS/ML 10 UNITS SUB-Q (21:30)
[2020-06-03] VITALS (21 sets, daily range): BP systolic 98–147; BP diastolic 62–103; PULSE 69–138; RESP 18–22; TEMP 35.8–36.8; O2SAT 87–97
[2020-06-03] MEDS: dilTIAZem HCL 30 MG TABLET PO ×5 (00:13→22:53)
[2020-06-03] MEDS: INSULIN ASPART (*BKC) 100 UNITS/ML SUB-Q ×3 (00:24→17:14)
[2020-06-03 02:15] LABS: Glucose Point of Care 321 (65-105)
[2020-06-03] MEDS: LEVALBUTEROL HFA (*SP) 15 GM INHALER 2 PUFF INHALATION ×4 (02:44→21:35)
[2020-06-03 04:31] LABS: Glucose Point of Care 210 (65-105)
[2020-06-03] MEDS: METOPROLOL TARTRATE 50 MG TAB PO ×4 (04:31→22:53)
[2020-06-03 08:33] LABS: Alanine Aminotransferase 55 U/L (4-50); Albumin Level 3.5 g/dL (3.5-5.1); Alkaline Phosphatase 122 U/L (38-126); Anion Gap 10 mmol/L (8-16); Aspartate Amino Transferase 54 U/L (17-59); Bilirubin,Total 0.5 mg/dL (0.2-1.3); Blood Urea Nitrogen 15 mg/dL (9-20); Calcium 8.7 mg/dL (8.4-10.2); Carbon Dioxide 30 mmol/L (22-30); Chloride 97 mmol/L (98-107); Estimated CRCL calculation 125 ml/min; Estimated Glomerular Filt Rate > 60; Glucose 215 mg/dL (75-110); Potassium 4.1 mmol/L (3.4-5.0); Sodium 137 mmol/L (137-145)
[2020-06-03 08:39] LABS: Glucose Point of Care 185 (65-105)
[2020-06-03] MEDS: INSULIN DETEMIR 100 UNITS/ML 30 UNITS SUB-Q (09:45)
[2020-06-03] MEDS: AZITHROMYCIN 250 MG TABLET PO (09:46)
[2020-06-03] MEDS: APIXABAN 5 MG TABLET PO ×2 (09:46→21:39)
[2020-06-03] MEDS: FAMOTIDINE 20 MG TABLET PO ×2 (09:46→21:39)
[2020-06-03] MEDS: DEXAMETHASONE SOD PHOS INJ 4 MG/ML VIAL 6 MG IV PUSH (09:47)
--- NOTE | 2020-06-03 11:09 | PM.PNCARD ---
Progress Note: A&P Assessment and Plan (1) Atrial fibrillation with rapid ventricular response: Code(s): I48.91 - Unspecified atrial fibrillation Status: Acute Assessment and Plan: 65-year-old male with hypertension, diabetes mellitus, admitted to the hospital with COVID-19 infection. Found to be in atrial fibrillation with RVR. On review of EKGs in the chart he was in atrial fibrillation on 05/25/2020. It is unknown how long he has been in atrial fibrillation prior to that EKG (sinus rhytym 04/25/2020). - Remains in AFib with RVR, triggered by underlying COVID 19 pneumonia. -continue oral metoprolol and diltiazem with holding parameters. -anticoagulation with apixaban. -echocardiogram reviewed, relatively preserved ejection fraction. (2) Pneumonia due to COVID-19 virus: Code(s): U07.1 - COVID-19; J12.89 - Other viral pneumonia Status: Acute Assessment and Plan: Appropriate antibiotics, steroids, management as per primary team. (3) Acute respiratory failure with hypoxia: Code(s): J96.01 - Acute respiratory failure with hypoxia Status: Acute Assessment and Plan: Supplemental oxygen, management as per primary team Additional Plan Subjective Date/time seen: 06/03/20 11:09 Interval history: Follow up for: positive for COVID last week. Admitted for SOB and found to be in AFib/RVR. Date of service: 06/02/2020 Subjective: Tired. Did not sleep well last night. Chest discomfort with cough. breathing is better. Still with cough. When starts hard to stop . No lightheadedness or nausea. Stools are not as soft. Good appetite. Date of service: 06/03/2020-patient remains in atrial fibrillation with episodes of RVR on telemetry, heart rates in 90s to 110s to 120s. No chest pain. Dyspnea is improving. Exam Narrative: Exam Narrative: PHYSICAL EXAMINATION: limited to inspection GENERAL: Alert, oriented MENTAL STATUS: affect appropriate to mood EYES: Extraocular movements intact EARS: hearing grossly normal Respiratory:respirations unlabored HEART: irregular rhythm. Tachycardic on night monitor. NEUROLOGICAL: Alert, oriented, normal speech MUSCULOSKELETAL: No major deformity PSYCHIATRIC: Normal mood, appropriate affect Neuro: Cranial nerves: Yes Normal hearing present Objective Data Vital Signs Vital Signs: Vital Signs - 24 hr 06/02/20 12:00 06/02/20 12:47 06/02/20 14:00 Temperature 36.2 C L Pulse Rate 123 H 121 H 122 H Respiratory Rate 18 Blood Pressure 119/73 Pulse Oximetry 93 06/02/20 16:00 06/02/20 17:49 06/02/20 18:00 Temperature 36.2 C L Pulse Rate 100 117 H 115 H Respiratory Rate 18 Blood Pressure 122/64 Pulse Oximetry 96 06/02/20 20:00 06/02/20 23:31 06/02/20 23:48 Temperature 36.2 C L Pulse Rate 99 117 H Respiratory Rate 22 H Blood Pressure 133/93 H Pulse Oximetry 98 98 06/03/20 00:00 06/03/20 01:42 06/03/20 03:44 Temperature 36.1 C L Pulse Rate 75 108 H Respiratory Rate 20 Blood Pressure 98/62 L Pulse Oximetry 97 94 06/03/20 03:45 06/03/20 04:00 06/03/20 04:31 Temperature 36.2 C L Pulse Rate 69 120 H 110 H Respiratory Rate 22 H Blood Pressure 137/103 H Pulse Oximetry 94 06/03/20 06:00 06/03/20 08:00 06/03/20 10:00 Temperature 35.9 C L Pulse Rate 92 106 H 100 Respiratory Rate 18 Blood Pressure 147/77 H Pulse Oximetry 96 Intake/Output Intake/Output: Intake & Output 05/31/20 06/01/20 06/02/20 06/03/20 23:59 23:59 23:59 23:59 Intake Total 2340 2400 2320 490 Output Total 1150 1850 1250 800 Balance 1735 559 7419 -310 Meds/Results Medications: Active Medications Generic Name Dose Route Start Last Admin Trade Name Freq PRN Reason Stop Dose Admin Apixaban 5 mg 06/02/20 11:55 06/03/20 09:46 Apixaban 5
[2020-06-03 12:37] LABS: Glucose Point of Care 234 (65-105)
--- NOTE | 2020-06-03 13:05 | PM.IMPN ---
Progress Note: A&P Assessment and Plan (1) Acute respiratory failure with hypoxia: Code(s): J96.01 - Acute respiratory failure with hypoxia Status: Acute Assessment and Plan: Related to COVID PNA and possibly underlying bacterial PNA +/- AFib/RVR (causing fluid overload). Continue oxygen supplementation and wean off as tolerated. Continue treatment of COVID pneumonia as detailed below. Wean O2 as tolerated. (2) Pneumonia due to COVID-19 virus: Code(s): U07.1 - COVID-19; J12.89 - Other viral pneumonia Status: Acute Assessment and Plan: Patient tested positive for COVID on 05/25/20. He has been started on Decardon 05/29/20 (Day 6). He was down to room air so Remdesivir was held initially but increased to 3L so Remdesivir started 05/1120 (Day 4). CRP 4, LDH 641, Ferritin 787. LFTs elevated now probably from Remdesivir. Being covered for bacterial PNA Day 5. Follow inflammatory markers. Continue droplet isolation and supportive care. (3) Severe sepsis: Code(s): A41.9 - Sepsis, unspecified organism; R65.20 - Severe sepsis without septic shock Status: Acute Assessment and Plan: Sepsis present on admission with tachycardia, fever, tachypnea, and elevated lactic acid level. CXR 06/01 showing bilateral airspace disease. Source of sepsis appears to be pulmonary. Blood cultures NGTD. WBC normal and no fevers. Positive fluid balance but hold on Lasix as we try to control HR. Continue IV antibiotics. Was having higher O2 requirements which could be worsening PNA and/or developing pulm edema. Wean O2 as tolerated. (4) Atrial fibrillation with rapid ventricular response: Code(s): I48.91 - Unspecified atrial fibrillation Status: Acute Assessment and Plan: New onset Atrial fibrillation w/ RVR - CHADSVASc score is 3. The patient received a bolus of Cardizem in the ED and continued on drip. HR still elevated at times mostly when active. His blood pressures are labile at times but better. Was also given Digoxin 500mg IV given on 05/30 and again 05/31. Anticoagulation with therapeutic Lovenox initially but changed to Eliquis. TSH low at 0.3 but FT4 normal. Echo with EF 55-60%. Metoprolol added and advanced. Diltiazem drip weaned off and converted to oral regiment. Oral Digoxin added but able to be stopped to keep regiment as simple as possible. HR much better overall but still with persistent tachycardia. Cardiology following and appreciate their input. Care coordination provided info for patient regarding the cost of Eliquis. (5) Acute renal failure: Qualifiers: Acute renal failure type: unspecified Qualified Code(s): N17.9 - Acute kidney failure, unspecified Code(s): N17.9 - Acute kidney failure, unspecified Status: Acute Assessment and Plan: Cr 1.4 on admission. Cr improved with IV fluids and now at 0.6 now. IV fluids off quickly due to COVID. Good UOP. AMANDA likely secondary to sepsis and hypoperfusion. Continue to monitor renal function and urine output. (6) Diabetes: Qualifiers: Diabetes mellitus complication status: without complication Diabetes mellitus dedicated intermodal truck driver insulin use: without dedicated intermodal truck driver use Diabetes mellitus type: type 2 Qualified Code(s): E11.9 - Type 2 diabetes mellitus without complications Code(s): E11.9 - Type 2 diabetes mellitus without complications Status: Acute Assessment and Plan: A1c 12.1. The patient's blood glucose was reviewed on 06/03 Glucose remains poorly controlled felt related to Dexamethasone and that he is poorly controlled prior to admission. Continue AccuCheks covering with sliding scale. Hypoglycemia protocol available as needed. Continue current medications. Continue to advance Levemir again. Resume metformin. Hold Canagliflozin since this can lower BP. No GLP1 on formulary. Add Januvia. (7) Benign essential HTN: Code(s): I10 -
[2020-06-03 17:00] LABS: Glucose Point of Care 341 (65-105)
[2020-06-03 17:07] LABS: Vancomycin Trough 20.5 ug/mL (10.0-20.0)
[2020-06-03] MEDS: metFORMIN HCL XR 500 MG TAB.SR.24H 1000 MG PO (17:15)
[2020-06-03 21:01] LABS: Glucose Point of Care 295 (65-105)
[2020-06-03] MEDS: MELATONIN 3 MG TABLET PO (21:39)
[2020-06-03] MEDS: REMDESIVIR 100 MG/NS 250 ML 100 MG/250 ML BAG 250 MG IVPB (21:40)
[2020-06-03] MEDS: INSULIN DETEMIR 100 UNITS/ML 40 UNITS SUB-Q (21:48)
[2020-06-03] MEDS: guaiFENesin/DEXTROMETHORPHAN 10 ML UDC PO (22:55)
[2020-06-04] VITALS (19 sets, daily range): BP systolic 109–145; BP diastolic 65–96; PULSE 63–141; RESP 20–22; TEMP 35.8–36.8; O2SAT 78–99
--- NOTE | 2020-06-04 04:49 | PCRCNOTE ---
Window of time for administration has passed. See next scheduled administration.
[2020-06-04 05:27] LABS: Basophils Absolute Auto 0.1 K/mm3 (0.0-0.1); Hematocrit 41.4 % (42.0-52.0); Hemoglobin 13.7 g/dL (14.0-18.0); Immature Granulocyte Absolute 0.43 K/mm3 (0.00-0.031); Immature Granulocyte Percent A 5.9 % (0-0.5); Lymphocytes Absolute Auto 0.53 K/mm3 (0.9-3.2); Lymphocytes Percent Auto 7.3 % (18.3-44.2); Mean Corpuscular HGB Conc 33.1 g/dl (32-36); Mean Corpuscular Hemoglobin 28.5 pg (26-34); Mean Corpuscular Volume 86.3 fl (80-100); Monocytes Absolute Auto 0.6 K/mm3 (0.1-0.6); Monocytes Percent Auto 7.7 % (2.6-8.5); Neutrophils Absolute Auto 5.7 K/mm3 (1.3-6.7); Neutrophils Percent Auto 78.1 % (45.5-73.1); Platelet Count Result 326 k/mm3 (150-375); Red Cell Distribution Width 12.9 % (11.5-14.5); White Blood Count 7.2 K/mm3 (4.5-10.0)
[2020-06-04] MEDS: dilTIAZem HCL 30 MG TABLET PO (06:21)
[2020-06-04] MEDS: METOPROLOL TARTRATE 50 MG TAB PO ×3 (06:21→17:11)
[2020-06-04 06:32] LABS: Alanine Aminotransferase 88 U/L (4-50); Albumin Level 2.6 g/dL (3.5-5.1); Alkaline Phosphatase 71 U/L (38-126); Anion Gap 5 mmol/L (8-16); Aspartate Amino Transferase 47 U/L (17-59); Bilirubin,Total 0.5 mg/dL (0.2-1.3); Blood Urea Nitrogen 28 mg/dL (9-20); CRP 2.1 mg/dL (<1.0); Calcium 8.4 mg/dL (8.4-10.2); Carbon Dioxide 27 mmol/L (22-30); Chloride 104 mmol/L (98-107); Estimated CRCL calculation 86 ml/min; Estimated Glomerular Filt Rate > 60; Glucose 168 mg/dL (75-110); Lactate Dehydrogenase 591 U/L (313-618); Potassium 4.2 mmol/L (3.4-5.0); Sodium 136 mmol/L (137-145)
[2020-06-04 07:07] LABS: Atypical Lymphocytes Present; Platelet Estimate Adequate (Adequate)
[2020-06-04 07:08] LABS: Smudge Cells FEW
[2020-06-04] MEDS: LEVALBUTEROL HFA (*SP) 15 GM INHALER 2 PUFF INHALATION ×3 (09:13→21:17)
[2020-06-04 09:34] LABS: Glucose Point of Care 69 (65-105)
[2020-06-04] MEDS: APIXABAN 5 MG TABLET PO ×2 (09:56→20:45)
[2020-06-04] MEDS: FAMOTIDINE 20 MG TABLET PO ×2 (09:56→20:45)
[2020-06-04] MEDS: metFORMIN HCL XR 500 MG TAB.SR.24H 1000 MG PO ×2 (09:56→17:11)
[2020-06-04] MEDS: DEXAMETHASONE SOD PHOS INJ 4 MG/ML VIAL 6 MG IV PUSH (09:58)
--- NOTE | 2020-06-04 10:21 | PM.IMPN ---
Progress Note: A&P Assessment and Plan (1) Acute respiratory failure with hypoxia: Code(s): J96.01 - Acute respiratory failure with hypoxia Status: Acute Assessment and Plan: Related to COVID PNA and possibly underlying bacterial PNA +/- AFib/RVR (causing fluid overload). Continue oxygen supplementation. Continue treatment of COVID pneumonia as detailed below. Wean O2 as tolerated. Home O2 eval planned for today. Possibly home tomorrow. (2) Pneumonia due to COVID-19 virus: Code(s): U07.1 - COVID-19; J12.89 - Other viral pneumonia Status: Acute Assessment and Plan: Patient tested positive for COVID on 05/25/20. He has been started on Decardon 05/29/20 (Day 7). He was down to room air so Remdesivir was held initially but increased to 3L so Remdesivir started 05/31 (Day 5). CRP 2.1, LDH 591 both improved. ALT elevated now probably from Remdesivir. Being covered for bacterial PNA Day 6. Continue droplet isolation and supportive care. (3) Severe sepsis: Code(s): A41.9 - Sepsis, unspecified organism; R65.20 - Severe sepsis without septic shock Status: Acute Assessment and Plan: Sepsis present on admission with tachycardia, fever, tachypnea, and elevated lactic acid level. CXR 06/01 showing bilateral airspace disease. Source of sepsis appears to be pulmonary. Blood cultures NGTD. WBC normal and no fevers. Positive fluid balance but hold on Lasix as we try to control HR. Continue IV antibiotics. Continue to wean O2 as tolerated. (4) Atrial fibrillation with rapid ventricular response: Code(s): I48.91 - Unspecified atrial fibrillation Status: Acute Assessment and Plan: New onset Atrial fibrillation w/ RVR - CHADSVASc score is 3. The patient received a bolus of Cardizem in the ED and continued on drip. HR still elevated at times mostly when active. His blood pressures are labile at times but better. Was also given Digoxin 500mg IV on 05/30 and again 05/31. Anticoagulation with therapeutic Lovenox initially but changed to Eliquis. TSH low at 0.3 but FT4 normal. Echo with EF 55-60%. Metoprolol added and advanced. Diltiazem drip weaned off and converted to oral regiment. Oral Digoxin added but able to be stopped to keep regiment as simple as possible. HR was improved but higher now possibly related to being off the Digoxin now. Cardiology following and appreciate their input. Care coordination provided info for patient regarding the cost of Eliquis. Medications to be adjusted today per cardiology. (5) Acute renal failure: Qualifiers: Acute renal failure type: unspecified Qualified Code(s): N17.9 - Acute kidney failure, unspecified Code(s): N17.9 - Acute kidney failure, unspecified Status: Acute Assessment and Plan: Cr 1.4 on admission. Cr improved with IV fluids and now at 0.9 now. IV fluids off quickly due to COVID. AMANAD likely secondary to sepsis and hypoperfusion. Continue to monitor renal function and urine output. (6) Diabetes: Qualifiers: Diabetes mellitus complication status: without complication Diabetes mellitus intermediate school teacher insulin use: without intermediate school teacher use Diabetes mellitus type: type 2 Qualified Code(s): E11.9 - Type 2 diabetes mellitus without complications Code(s): E11.9 - Type 2 diabetes mellitus without complications Status: Acute Assessment and Plan: A1c 12.1. The patient's blood glucose was reviewed on 06/04 Glucose better controlled today. [place] poorly controlled due to Dexamethasone and that he was poorly controlled prior to admission. Continue AccuCheks covering with sliding scale. Hypoglycemia protocol available as needed. Continue current medications with Levemir, metformin and Januvia. Hold Canagliflozin since this can lower BP. No GLP1 on formulary. Insulin teaching underway. (7) Benign essential HTN: Code(s): I10 - Essential (primary) hype
--- NOTE | 2020-06-04 10:35 | PM.PNCARD ---
Progress Note: A&P Assessment and Plan (1) Atrial fibrillation with rapid ventricular response: Code(s): I48.91 - Unspecified atrial fibrillation Status: Acute Assessment and Plan: 65-year-old male with hypertension, diabetes mellitus, admitted to the hospital with COVID-19 infection. Found to be in atrial fibrillation with RVR. On review of EKGs in the chart he was in atrial fibrillation on 05/25/2020. It is unknown how long he has been in atrial fibrillation prior to that EKG (sinus rhytym 04/25/2020). - Remains in AFib with RVR, triggered by underlying COVID 19 pneumonia. -continue oral metoprolol; increase diltiazem to 60 mg p.o. t.i.d.. Continue to monitor on telemetry. -anticoagulation with apixaban. -echocardiogram reviewed, relatively preserved ejection fraction. (2) Pneumonia due to COVID-19 virus: Code(s): U07.1 - COVID-19; J12.89 - Other viral pneumonia Status: Acute Assessment and Plan: Appropriate antibiotics, steroids, management as per primary team. (3) Acute respiratory failure with hypoxia: Code(s): J96.01 - Acute respiratory failure with hypoxia Status: Acute Assessment and Plan: Supplemental oxygen, management as per primary team Additional Plan Subjective Date/time seen: 06/04/20 10:35 Interval history: Date of service 06/03 65yo male with DM and recently tested positive for COVID last week here for SOB and found to be in AFib/RVR. Still with chest pain with cough. ABd also painful at times with coughing. Overall, cough better. Eating well. Stools still soft but no baldomero diarrhea. Date of service 06/04/2020-patient still remains in atrial fibrillation with RVR, heart rates in 120s. Exam Narrative: Exam Narrative: PHYSICAL EXAMINATION: limited to inspection GENERAL: Alert, oriented MENTAL STATUS: affect appropriate to mood EYES: Extraocular movements intact EARS: hearing grossly normal Respiratory:respirations unlabored HEART: irregular rhythm. 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 NEUROLOGICAL: Alert, oriented, normal speech MUSCULOSKELETAL: No major deformity PSYCHIATRIC: Normal mood, appropriate affect Neuro: Cranial nerves: Yes Normal hearing present Objective Data Vital Signs Vital Signs: Vital Signs - 24 hr 06/03/20 12:00 06/03/20 12:36 06/03/20 14:00 Temperature 35.8 C L Pulse Rate 108 H 117 H 110 H Respiratory Rate 18 Blood Pressure 133/89 Pulse Oximetry 96 06/03/20 16:00 06/03/20 17:14 06/03/20 18:00 Temperature 35.8 C L Pulse Rate 113 H 113 H 101 H Respiratory Rate 18 Blood Pressure 132/78 Pulse Oximetry 95 06/03/20 20:00 06/03/20 21:36 06/03/20 22:00 Temperature 36.8 C Pulse Rate 122 H 101 H 122 H Respiratory Rate 22 H Blood Pressure 135/97 H Pulse Oximetry 94 92 06/03/20 22:53 06/04/20 00:00 06/04/20 02:00 Temperature 36.1 C L Pulse Rate 138 H 95 119 H Respiratory Rate 20 Blood Pressure 145/96 H Pulse Oximetry 92 06/04/20 02:30 06/04/20 04:00 06/04/20 06:00 Temperature 36.3 C L Pulse Rate 109 H 114 H Respiratory Rate 22 H Blood Pressure 136/90 Pulse Oximetry 78 L 94 06/04/20 06:21 06/04/20 08:00 06/04/20 09:14 Temperature 36.8 C Pulse Rate 118 H 63 110 H Respiratory Rate 20 Blood Pressure 111/65 Pulse Oximetry 98 92 Intake/Output Intake/Output: Intake & Output 06/01/20 06/02/20 06/03/20 06/04/20 23:59 23:59 23:59 23:59 Intake Total 2400 2320 2130 240 Output Total 1850 1250 800 Balance 550 1070 1330 240 Meds/Results Medications: Active Medications Generic Name Dose Route Start Last Admin Trade Name Freq PRN Reason Stop Dose Admin Apixaban 5 mg 06/02/20 11:55 06/04/20 09:56 Apixaban 5 Mg Tablet PO 5 mg Q12HR GISELLA Administration Dexamethasone Sodium Phosphate 6 m
[2020-06-04] MEDS: dilTIAZem HCL 60 MG TABLET PO ×2 (12:49→17:11)
[2020-06-04 13:06] LABS: Glucose Point of Care 134 (65-105)
[2020-06-04] MEDS: INSULIN ASPART (*BKC) 100 UNITS/ML SUB-Q (17:11)
[2020-06-04 18:21] LABS: Glucose Point of Care 309 (65-105)
[2020-06-04] MEDS: MELATONIN 3 MG TABLET PO (20:45)
[2020-06-04] MEDS: INSULIN DETEMIR 100 UNITS/ML 40 UNITS SUB-Q (20:46)
[2020-06-04] MEDS: REMDESIVIR 100 MG/NS 250 ML 100 MG/250 ML BAG 250 MG IVPB (20:48)
[2020-06-04 20:51] LABS: Glucose Point of Care 233 (65-105)
[2020-06-05] VITALS (21 sets, daily range): BP systolic 116–142; BP diastolic 54–95; PULSE 58–125; RESP 16–22; TEMP 35.9–36.9; O2SAT 86–99
[2020-06-05] MEDS: METOPROLOL TARTRATE 50 MG TAB PO ×2 (00:08→05:32)
[2020-06-05] MEDS: LEVALBUTEROL HFA (*SP) 15 GM INHALER 2 PUFF INHALATION ×4 (03:30→19:34)
[2020-06-05 05:37] LABS: Estimated CRCL calculation 86 ml/min; Estimated Glomerular Filt Rate > 60
[2020-06-05 08:49] LABS: Glucose Point of Care 158 (65-105)
--- NOTE | 2020-06-05 09:04 | HOMEO2EVAL ---
Home Oxygen Evaluation RC: Home Oxygen (O2) Evaluation Start: 06/05/20 07:40 Freq: ONCE Status: Active Protocol: RPE Activity Type Activity Date Activity User E-Sign Co-Sign Detail Recorded Client Recorded Date Recorded By Document 06/05/20 08:02 KRM [id number] 06/05/20 09:04 KRM Document 06/05/20 08:05 KRM [id number] 06/05/20 09:04 KRM Document 06/05/20 08:06 [email or web address] [email or web address] 06/05/20 09:04 KRM Document 06/05/20 08:08 [email or web address] [email or web address] 06/05/20 09:04 KRM 06/05/20 06/05/20 06/05/20 08:02 08:05 08:06 Home O2 Evaluation Test Phase Resting Exercise Exercise Oxygen Delivery Room Air Room Air Nasal Cannula Oxygen Flow Rate (L/min) 1 Pulse Oximetry (90-100 %) 95 86 L 88 L Pulse Rate (60-100 beats/min) 115 H 118 H 119 H Activity Tolerance Fair Fair Ambulation Distance (feet) Home Oxygen Evaluation Comments Treatment Charges O2 Evaluation 06/05/20 08:08 Home O2 Evaluation Test Phase Exercise Oxygen Delivery Nasal Cannula Oxygen Flow Rate (L/min) 2 Pulse Oximetry (90-100 %) 92 Pulse Rate (60-100 beats/min) 91 Activity Tolerance Fair Ambulation Distance (feet) 50 Home Oxygen Evaluation Comments 2 liters per minute with activity. Treatment Charges
--- NOTE | 2020-06-05 09:07 | PCRCNOTE ---
HOME O2 EVALUATION COMPLETE. PT. REQUIRES [address] CADE WANTS PT. TO ALSO WEAR O2 NOC DUE TO NIGHT TIME DESATURATIONS. SETTING PT. UP WITH [facility]. TANK IN ROOM.
[2020-06-05] MEDS: dilTIAZem HCL 60 MG TABLET PO (09:41)
[2020-06-05] MEDS: APIXABAN 5 MG TABLET PO (09:41)
[2020-06-05] MEDS: DEXAMETHASONE SOD PHOS INJ 4 MG/ML VIAL 6 MG IV PUSH (09:41)
[2020-06-05] MEDS: FAMOTIDINE 20 MG TABLET PO (09:41)
[2020-06-05] MEDS: metFORMIN HCL XR 500 MG TAB.SR.24H 1000 MG PO ×2 (09:42→17:23)
[2020-06-05] MEDS: INSULIN DETEMIR 100 UNITS/ML 40 UNITS SUB-Q (09:42)
--- NOTE | 2020-06-05 09:49 | PCNWS ---
Weekly nutritional screen. Patient is tolerating current diet with adequate intake. No weight loss reported. No nutritional needs at this time.
--- NOTE | 2020-06-05 11:42 | PM.PNCARD ---
Progress Note: A&P Assessment and Plan (1) Atrial fibrillation with rapid ventricular response: Code(s): I48.91 - Unspecified atrial fibrillation Status: Acute Assessment and Plan: 65-year-old male with hypertension, diabetes mellitus, admitted to the hospital with COVID-19 infection. Found to be in atrial fibrillation with RVR. On review of EKGs in the chart he was in atrial fibrillation on 05/25/2020. It is unknown how long he has been in atrial fibrillation prior to that EKG (sinus rhytym 04/25/2020). Remains in AFib with RVR, triggered by underlying COVID 19 pneumonia. Heart rate has been difficult to control although slowly improving.. Continues on Metoprolol tartrate 50 mg every 6 hours and Cardizem 60 mg t.i.d.. Doubt that he will be able to continue this regimen at home. Change Cardizem to 180 mg daily to start at 1300 today. DC short-acting diltiazem. Change metoprolol to 100 mg every 12 hours starting at 6 pm today. He will be able to monitor BP and heart rate at home. Anticoagulated with apixaban. Echocardiogram with relatively preserved ejection fraction. (2) Pneumonia due to COVID-19 virus: Code(s): U07.1 - COVID-19; J12.89 - Other viral pneumonia Status: Acute Assessment and Plan: Appropriate antibiotics, steroids, management as per primary team. He tells me that his is now tested positive for COVID. He had a number of questions regarding isolation/quarantine. Encouraged to ask Dr Dubon those questions. A number of questions were written down. (3) Acute respiratory failure with hypoxia: Code(s): J96.01 - Acute respiratory failure with hypoxia Status: Acute Assessment and Plan: Supplemental oxygen, management as per primary team. Will be going home on oxygen. Additional Plan Can discharge from cardiac standpoint. Plan discussed with Dr. Abreu [id number] 06/05/2020 Subjective Date/time seen: 06/05/20 11:42 Interval history: Follow up for: positive for COVID 05/25/2020. Admitted for SOB and found to be in AFib/RVR. Date of service: 06/05/2020 Subjective: Review of Systems Constitutional: Constitutional: Reports fatigue and Denies headache(s) Eyes: Eyes: Denies blurry vision ENT: Reports Normal hearing present, Denies dizziness, Denies headache(s), Denies epistaxis, Denies throat swelling and Denies tongue swelling Cardiovascular: Cardiovascular: Reports chest pain (Chest pressure especially supine), Denies leg edema, Denies lightheadedness and Reports dyspnea on exertion (Improving) Respiratory: Respiratory: Reports cough and Reports dyspnea on exertion (Improving) Gastrointestinal: Gastrointestinal: Reports loose stools (Improved), Denies nausea and Denies vomiting Genitourinary: Genitourinary: Denies hematuria Musculoskeletal: Musculoskeletal: Denies myalgias Integumentary/Breasts: Skin/Breast: Denies erythema and Denies rash Neurologic: Reports Normal hearing present, Denies dizziness and Denies headache(s) Psychiatric: Psychiatric: Denies anxiety and Denies depression Endocrine: Endocrine: Reports fatigue, Denies flushing and Denies heat intolerance Hematologic/Lymphatic: Hematologic/Lymphatic: Denies easy bleeding and Denies easy bruising Allergic/Immunologic: Allergic/Immunologic: Denies throat swelling and Denies tongue swelling Exam Narrative: Exam Narrative: PHYSICAL EXAMINATION: limited to inspection GENERAL: Alert, oriented MENTAL STATUS: affect appropriate to mood EYES: Extraocular movements intact EARS: hearing grossly normal Respiratory:respirations even and unlabored. Oxygen back on at 1 L per nasal cannula. HEART: irregular rhythm. 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 NEUROLOGICAL: Alert, oriented, normal speech MUSCULOSKELETAL: No major deformity PSYCH
[2020-06-05] MEDS: dilTIAZem HCL CD 180 MG CAP.ER.24H PO (13:20)
[2020-06-05 16:29] LABS: Glucose Point of Care 213 (65-105)
[2020-06-05 16:29] LABS: Glucose Point of Care 187 (65-105)
--- NOTE | 2020-06-05 17:11 | PM.DS ---
DS: Admitting Diagnosis Admitting Diagnosis Admitting Diagnosis: covid 19, sepsis, pneumonia, dehydration DS: Discharge Diagnosis Discharge Diagnosis (1) Acute respiratory failure with hypoxia: Code(s): J96.01 - Acute respiratory failure with hypoxia Status: Acute Assessment and Plan: Related to COVID PNA and possibly underlying bacterial PNA +/- AFib/RVR (causing fluid overload). Continue oxygen supplementation. Continue treatment of COVID pneumonia as detailed below. Wean O2 as tolerated. Home O2 eval planned for today. Possibly home tomorrow. (2) Pneumonia due to COVID-19 virus: Code(s): U07.1 - COVID-19; J12.89 - Other viral pneumonia Status: Acute Assessment and Plan: Patient tested positive for COVID on 05/25/20. He has been started on [place] 05/29/20 (Day 8). He was down to room air so Remdesivir was held initially but his Oxygen requirment worsened to 3L so Remdesivir started - he completed 5 day course. CRP and LDH improved. ALT elevated probably from Remdesivir. Completed a course for bacterial PNA. We continued droplet isolation and supportive care. (3) Severe sepsis: Code(s): A41.9 - Sepsis, unspecified organism; R65.20 - Severe sepsis without septic shock Status: Acute Assessment and Plan: Sepsis present on admission with tachycardia, fever, tachypnea, and elevated lactic acid level. CXR 06/01 showing bilateral airspace disease. Source of sepsis appears to be pulmonary. Blood cultures NGTD. WBC normal and no fevers. Completed a course of IV antibiotics. (4) Atrial fibrillation with rapid ventricular response: Code(s): I48.91 - Unspecified atrial fibrillation Status: Acute Assessment and Plan: New onset Atrial fibrillation w/ RVR - CHADSVASc score is 3. The patient received a bolus of Cardizem in the ED and continued on drip. HR still elevated at times mostly when active. His blood pressures are labile at times but improved. Was also given Digoxin 500mg IV on 05/30 and again 05/31. Anticoagulation with therapeutic Lovenox initially but changed to Eliquis. TSH low at 0.3 but FT4 normal. Echo with EF 55-60%. Metoprolol added and advanced. Diltiazem drip weaned off and converted to oral regiment. Oral Digoxin added but able to be stopped to keep regiment as simple as possible. HR has improved. Care coordination provided info for patient regarding the cost of Eliquis and he can afford this. (5) Acute renal failure: Qualifiers: Acute renal failure type: unspecified Qualified Code(s): N17.9 - Acute kidney failure, unspecified Code(s): N17.9 - Acute kidney failure, unspecified Status: Acute Assessment and Plan: Cr 1.4 on admission. Cr improved with IV fluids and now at 0.9. IV fluids off quickly due to COVID. AMANDA likely secondary to sepsis and hypoperfusion. (6) Diabetes: Qualifiers: Diabetes mellitus type: type 2 Diabetes mellitus half-way insulin use: without oracle soa consultant use Diabetes mellitus complication status: without complication Qualified Code(s): E11.9 - Type 2 diabetes mellitus without complications Code(s): E11.9 - Type 2 diabetes mellitus without complications Status: Acute Assessment and Plan: A1c 12.1. The patient's blood glucose was monitored closely. Glucose became better controlled. [place] poorly controlled due to Dexamethasone and that he was poorly controlled prior to admission. AccuCheks covering with sliding scale. Hypoglycemia protocol was available as needed. Continue current medications with Levemir, metformin and Januvia. Hold Canagliflozin since this can lower BP. No GLP1 on formulary. Insulin teaching given. (7) Benign essential HTN: Code(s): I10 - Essential (primary) hypertension Status: Acute Assessment and Plan: Patient's blood pressure was monitored closely. Blood pressure remained mostly we
[2020-06-05] MEDS: INSULIN ASPART (*BKC) 100 UNITS/ML SUB-Q (17:22)
== END 2020-06-05 20:40 | disposition home or self-care (01) | DRG 871 ==
LOC: ANHED 20:42 → ANHIMU 21:52
PROVIDERS: Emergency Medicine Emergency Medical Services; Admitting Provider Family Medicine; Emergency Provider Emergency Medicine; PCP Family Medicine; Visit Provider Internal Medicine
DX: A41.89 Other specified sepsis (principal); U07.1 COVID-19; J12.89 Other viral pneumonia; J96.01 Acute respiratory failure with hypoxia; N17.9 Acute kidney failure, unspecified; R65.20 Severe sepsis without septic shock; I48.91 Unspecified atrial fibrillation; E86.0 Dehydration; E11.9 Type 2 diabetes mellitus without complications; I10 Essential (primary) hypertension
CPT/HCPCS: 36415; 36600; 71045; 80048; 80053; 80202; 81001; 82010; 82375; 82565; 82728; 82805; 83036; 83050; 83605; 83615; 83735; 84100; 84439; 84443; 84480; 84484; 85025; 86140; 87040; 87086; 87449; 87899; 93005; 93306; 94618; 94640; 96365; 96375; 99285; A9270; J0131; J0456; J1100; J1160; J1650; J1815; J3370; J7030; J7120

== ENCOUNTER → 2020-07-18 11:31 | Outpatient (CLI) | payer BC, SELFPAY ==
--- NOTE | ~2020-07-18 | XR_ITS ---
XR chest 2V DATE: 07/18/2020 11:56 INDICATION: Pneumonia TECHNIQUE: 2 views COMPARISON: 06/04/2020 portable AP chest FINDINGS: Bilateral patchy consolidating infiltrates are noted in the mid and particularly lower lung zones, increased since 06/04/2020. Suggestion of minimal left and mild right pleural effusion. Cardiomegaly is suggested. IMPRESSION: Increased bilateral infiltrates since 06/04/2020 Mild pleural effusions are suggested, as well as cardiomegaly Reviewed, dictated and finalized at location A. ING MIXTURE CARRIER
== END ==
PROVIDERS: PCP Family Medicine; Visit Provider Physician Assistant
DX: J18.9 Pneumonia, unspecified organism (principal); R91.8 Other nonspecific abnormal finding of lung field
CPT/HCPCS: 71046

== ENCOUNTER 2020-08-17 08:45 | Outpatient (CLI) | payer BC, SELFPAY ==
[2020-08-17 09:05] VITALS: PULSE 70; O2SAT 98
[2020-08-17 09:10] VITALS: PULSE 88; O2SAT 93
[2020-08-17 09:25] VITALS: PULSE 72; O2SAT 97
--- NOTE | 2020-08-17 09:38 | HOMEO2EVAL ---
Home Oxygen Evaluation RC: Home Oxygen (O2) Evaluation Start: 08/17/20 09:36 Freq: Status: Active Protocol: RPE Activity Type Activity Date Activity User E-Sign Co-Sign Detail Recorded Client Recorded Date Recorded By Document 08/17/20 09:05 DJO [email or web address] 08/17/20 09:38 DJO Document 08/17/20 09:10 DJO [email or web address] 08/17/20 09:38 DJO Document 08/17/20 09:25 DJO [email or web address] 08/17/20 09:38 DJO 08/17/20 08/17/20 08/17/20 09:05 09:10 09:25 Home O2 Evaluation Test Phase Resting Exercise Resting Oxygen Delivery Room Air Room Air Room Air Pulse Oximetry (90-100 %) 98 93 97 Pulse Rate (60-100 beats/min) 70 88 72 Activity Tolerance Excellent Rating of Perceived Dyspnea (PD) +1 Mild, Noticeable to the Participant but Not to an Observer Ambulation Distance (feet) 1,200 Treatment Charges O2 Evaluation
== END 2020-08-17 08:46 | disposition home or self-care (01) ==
LOC: ANHPFT 08:46
PROVIDERS: Family Provider Family Medicine; PCP Family Medicine; Visit Provider Internal Medicine Pulmonary Disease
DX: U07.1 COVID-19 (principal); J12.82 Pneumonia due to coronavirus disease 2019
CPT/HCPCS: 94618

== ENCOUNTER → 2020-08-26 00:26 | Outpatient (CLI) | payer BC, SELFPAY ==
[2020-08-26 20:39] LABS: SARS-CoV-2 RNA PCR Negative
== END ==
PROVIDERS: PCP Family Medicine; Visit Provider Internal Medicine Cardiovascular Disease
DX: Z01.812 Encounter for preprocedural laboratory examination (principal); Z20.822 Contact with and (suspected) exposure to COVID-19
CPT/HCPCS: C9803; U0003; U0005

== ENCOUNTER 2020-08-29 02:03 | Day surgery (SDC) | payer BC, SELFPAY ==
[2020-08-28 13:07] VITALS: BMI 34.1
--- NOTE | 2020-08-29 08:30 | ECG_ITS ---
Measurements Intervals [place] Rate: 85 P: [place]: 0 QRS: 4 QRSD: 90 T: 32 QT: 383 QTc: 457 Interpretive Statements ATRIAL FIBRILLATION NONSPECIFIC ST & T-WAVE ABNORMALITY- DIFFUSE LEADS BASELINE ARTIFACT- I, II, III, AVF, V2 ABNORMAL ECG Electronically Signed On 08-29-2020 9:06:01 APPEALS ASSISTANT by Guillaume Schaefer D.O.
[2020-08-29 09:17] VITALS: BP 160/98; PULSE 80; RESP 14; TEMP 36.2; O2SAT 98
[2020-08-29 09:35] VITALS: BP 163/72; PULSE 87; RESP 15; O2SAT 98
--- NOTE | 2020-08-29 09:39 | ECG_ITS ---
Measurements Intervals [place] Rate: 66 P: 74 [place]: 223 QRS: 3 QRSD: 90 T: 30 QT: 407 QTc: 427 Interpretive Statements SINUS RHYTHM WITH FIRST DEGREE AV BLOCK ATRIAL PREMATURE COMPLEX NONSPECIFIC ST & T-WAVE ABNORMALITY- INF/LAT LEADS BASELINE ARTIFACT- I, II, III, AVR, AVL, V1-V2 ABNORMAL ECG Electronically Signed On 08-29-2020 10:50:34 GROCERY MANAGER by Guillaume Schaefer D.O.
--- NOTE | 2020-08-29 09:46 | WPDMODSED ---
Moderate Sedation Note-Pt Data Patient Data Allergies Allergy/AdvReac Type Severity Reaction Status Date / Time Penicillins Allergy Unknown Rash Verified 08/02/20 10:29 Home Medications Medication Instructions Recorded Confirmed Type apixaban [Eliquis] 5 mg PO Q12HR #60 tablet 06/05/20 08/28/20 Rx blood sugar diagnostic [OneTouch #1 pkg 06/05/20 07/19/20 Rx Verio test strips] blood-glucose meter [OneTouch #1 pkg 06/05/20 07/19/20 Rx Verio Flex meter] diltiazem HCl 180 mg PO QAM #30 cap 06/05/20 08/28/20 Rx lancets [OneTouch Delica Plus #1 pkg 06/05/20 07/19/20 Rx Lancet] metoprolol tartrate 100 mg PO Q12H #120 tablet 06/05/20 08/28/20 Rx pen needle, diabetic [BD #1 pkg 06/05/20 07/19/20 Rx Ultra-Fine Ana Pen Needle] sitagliptin [Januvia] 50 mg PO QAM #30 tablet 06/05/20 08/28/20 Rx metformin 500 mg tablet,extended 500 mg PO BID #180 tablet 07/27/20 08/28/20 Rx release 24 hr irbesartan 150 mg tablet 150 mg PO DAILY #90 tablet 08/11/20 08/28/20 Rx trazodone 100 mg tablet 200 mg PO .qhs #180 tablet 08/11/20 08/28/20 Rx Current Medications: Active Medications Sodium Chloride (Normal Saline Iv) 1,000 mls @ 30 mls/hr IV CONT .Q24H GISELLA Sedation/Anesthesia: No previous sedation/anesthesia problems (including family history). [facility] Past Medical History Medical History Body mass index [BMI]40.0-44.9, adult (02/12/19) Cancer screening Cervical radiculopathy Chest pain, unspecified Dermatophytosis of foot Diabetes Obesity Obesity, unspecified Occupational exposure to risk factor Other senior living (current) drug therapy Primary insomnia Psoriasis, unspecified Sleep apnea, unspecified Type 2 diabetes mellitus without complications Umbilical hernia with obstruction Umbilical hernia without mention of obstruction or gangrene Varicose veins of lower extremities with inflammation Family History Family History Mother Family history of lung cancer, Onset Age: 88 Other Family history of allergic disorder Social History Social History Smoking status: Never smoker Alcohol intake: never Substance use: never Substance use type: does not use Living arrangements: with family Spiritual care concerns: No Mod Sed Physical Exam Physical Exam Pre Procedural Exam: Normal: Airway Hours since solid foods: 10 Hours since liquid intake: 10 Internal Medicine - PN: Obj Da Vital Signs Vital Signs: Vital Signs - 24 hr 08/29/20 09:17 Temperature 36.2 C L Pulse Rate 80 Respiratory Rate 14 Blood Pressure 160/98 H Pulse Oximetry 98 Meds/Results Medications: Active Medications Generic Name Dose Route Start Last Admin Trade Name Freq PRN Reason Stop Dose Admin Sodium Chloride 1,000 mls @ 30 mls/hr 08/29/20 08:30 Normal Saline Iv IV CONT .Q24H [facility] ASA Classification/Sedation ASA Classification/Sedation Risks: Risks, benefits and alternatives explained and patient/family accepted plan for sedation. Patient re-evaluated immediately prior to sedation.
--- NOTE | 2020-08-29 09:46 | WPDCARDVER ---
Cardioversion Cardioversion Date of procedure: 08/29/20 Description of procedure: DC CARDIOVERSION REPORT DATE OF PROCEDURE: 08/29/2020 INDICATION FOR PROCEDURE: PERSISTENT ATRIAL FIBRILLATION Patient has been on chronic anticoagulation with apixaban, therefore SONIA was not required prior to the procedure. PROCEDURES PERFORMED: 1. Successful synchronized DC cardioversion with denominational of sinus rhythm 2. Moderate sedation -CPT 63538 SEDATION: Propofol 80 mg in divided doses ; start time 0934, stop time 0945; total [id number] time 11 minutes; GELA Kowalski was trained observer for the moderate sedation. PROCEDURE: Informed consent was taken prior to the procedure. Transcutaneous pads were placed in the right parasternal and left paravertebral positions. After adequate conscious sedation with IV propofol, synchronized DC cardioversion was performed with 200 joules x 1 with denominational of sinus rhythm. Postprocedure EKG showed sinus rhythm. Patient tolerated procedure well without any immediate procedure related complications. RECOMMENDATIONS: Patient will resume medications including anticoagulation with apixaban. Outpatient EKG in 1 week. Follow up in about 4-6 weeks.
--- NOTE | 2020-08-29 09:53 | WPDHPUPDATE1 ---
History and Physical Update Update Date/Time: 08/29/20 09:53 History and Physical has been reviewed, including an updated exam of the patient. There are NO changes in the patient's condition. Risks, benefits, and alternatives have been discussed and questions answered. Patient agrees to proceed with procedure.
[2020-08-29 10:00] VITALS: BP 152/90; PULSE 63; RESP 19; O2SAT 98
[2020-08-29 10:02] VITALS: BP 143/90; PULSE 65; RESP 14; O2SAT 98
[2020-08-29 10:15] VITALS: BP 141/87; PULSE 63; RESP 17; O2SAT 98
[2020-08-29 10:30] VITALS: BP 158/92; PULSE 65; RESP 17; O2SAT 100
--- NOTE | 2020-08-29 10:54 | SUR.PHASEII ---
1045-pt given D/C orders and instructions. Questions answered and verbalized understanding. AOx4. PIV removed. Taken via wheelchair to waiting vehicle. No distress noted or verbalized at time of departure.
== END 2020-08-29 10:45 | disposition home or self-care (01) ==
PROVIDERS: Family Provider Family Medicine; PCP Family Medicine; Visit Provider Internal Medicine Cardiovascular Disease
PROC: 5A2204Z Restoration of Cardiac Rhythm, Single (ICD-10-PCS; principal; 2020-08-29 10:00)
DX: I48.19 Other persistent atrial fibrillation (principal); E11.9 Type 2 diabetes mellitus without complications; Z79.84 Long term (current) use of oral hypoglycemic drugs; Z79.01 Long term (current) use of anticoagulants
CPT/HCPCS: 92960; 93005; J2704; J7030

== ENCOUNTER 2020-10-30 10:09 | Outpatient (CLI) | payer BC, SELFPAY | END 2020-10-30 10:10 | disposition home or self-care (01) | LOC: ANHCOVIDVC 10:09 | PROVIDERS: PCP Family Medicine | DX: Z23 Encounter for immunization (principal) | CPT/HCPCS: 0001A; 91300 ==

== ENCOUNTER 2020-11-20 10:10 | Outpatient (CLI) | payer BC, SELFPAY | END 2020-11-20 10:11 | disposition home or self-care (01) | LOC: ANHCOVIDVC 10:10 | PROVIDERS: PCP Family Medicine | DX: Z23 Encounter for immunization (principal) | CPT/HCPCS: 0002A; 91300 ==

== ENCOUNTER 2021-06-30 13:40 | Emergency (ER) | payer BC, SELFPAY ==
[2021-06-30 13:43] VITALS: BP 191/120; PULSE 87; RESP 18; TEMP 36.3; O2SAT 100
[2021-06-30] MEDS: cloNIDine HCL 0.1 MG TABLET PO (14:29)
--- NOTE | 2021-06-30 14:57 | ED.GENADULT ---
HPI - General Adult General Chief complaint: Recheck/Abnormal Lab/Rx Stated complaint: high blood pressure Time Seen by Provider: 06/30/21 14:02 Source: patient Mode of arrival: ambulatory Limitations: no limitations History of Present Illness HPI narrative: Patient presents with elevated blood pressure. Patient went to get hearing test yesterday and his blood pressure found to be elevated. History of hypertension, ran out of blood pressure medication over 2 months ago. On arrival to the emergency room blood pressure was 191/120, when I went see him in the room 156/98, 5 minutes after clonidine 0.1 mg orally. Patient denies any fever, chills, nausea, vomiting, chest pain, shortness of breath, back pain, headache, or shortness of breath Related Data Allergies Allergy/AdvReac Type Severity Reaction Status Date / Time Penicillins Allergy Unknown Rash Verified 08/02/20 10:29 Review of Systems Review of Systems: CONSTITUTIONAL: Denies fever, chills, or sweats. EYES: Denies visual changes, redness, or discharge. ENT: Denies rhinorrhea, congestion, sore throat, or otalgia. CARDIOVASCULAR: Denies chest pain, palpitations, or edema. RESPIRATORY: Denies cough or dyspnea. GASTROINTESTINAL: Denies abdominal pain, nausea, vomiting, or diarrhea. GENITOURINARY: Denies dysuria or hematuria. SKIN: Denies rash or itching. MUSCULOSKELETAL: Denies back pain, joint pain, or myalgia. NEUROLOGIC: Denies headache, numbness, or weakness. PSYCHIATRIC: Denies anxiety or depression. 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 Primary insomnia Psoriasis, unspecified Sleep apnea, unspecified Type 2 diabetes mellitus without complications Umbilical hernia with obstruction Umbilical hernia without mention of obstruction or gangrene Varicose veins of lower extremities with inflammation Family History Family History Mother Family history of lung cancer, Onset Age: 88 Other Family history of allergic disorder Social History Social History Smoking status: Never smoker Alcohol intake: never Alcohol use details: STATES VERY RARE - SOCIAL EVENTS, [place] AND THE LIKE Substance use: never Substance use type: does not use Spiritual care concerns: No Exam Narrative: General appearance: Well-developed, well-nourished Skin: Normal color Head: Normocephalic, nontraumatic Eyes: Clear conjunctiva ENT: Oropharynx normal, ears normal, nose normal Neck: Supple, nontender Chest and respiratory: Airway patent, no respiratory distress, no accessory muscle use Heart: Regular rate/rhythm Abdomen: Soft, nontender, no organomegaly, quiet bowel sounds Vascular: Normal peripheral pulses, normal capillary refill. Musculoskeletal: Normal range of motion, nontender back Neurologic: Alert and oriented ?3, FAMILY SERVICE CASEWORKER is normal as tested, no gross motor deficit Course Course Emergency Course: Improving Vital Signs Vital signs: Vital Signs Temperature 36.3 C L 06/30/21 13:43 Pulse Rate 87 06/30/21 13:43 Respiratory Rate 18 06/30/21 13:43 Blood Pressure 191/120 H 06/30/21 13:43 Pulse Oximetry 100 06/30/21 13:43 Temperature 36.3 C L 06/30/21 13:43 Pulse Rate 86 06/30/21 15:15 Respiratory Rate 16 06/30/21 15:15 Blood Pressure 164/109 H 12
[2021-06-30 15:15] VITALS: BP 164/109; PULSE 86; RESP 16; O2SAT 99
== END 2021-06-30 15:16 | disposition home or self-care (01) ==
PROVIDERS: Emergency Provider Emergency Medicine; PCP Family Medicine
DX: I10 Essential (primary) hypertension (principal); T46.5X6A Underdosing of other antihypertensive drugs, initial encounter; Z91.128 Patient's intentional underdosing of medication regimen for other reason; E11.9 Type 2 diabetes mellitus without complications; G47.30 Sleep apnea, unspecified
CPT/HCPCS: 99283; A9270

== ENCOUNTER 2021-11-01 11:18 | Outpatient (CLI) | payer BC, SELFPAY ==
[2021-11-01 14:09] LABS: Basophils Absolute Auto 0.1 K/mm3 (0.0-0.1); Basophils Percent Auto 1.4 % (0.2-1.2); Eosinophils Absolute Auto 0.3 K/mm3 (0-0.3); Eosinophils Percent Auto 4.4 % (0-4.4); Hematocrit 48.8 % (42.0-52.0); Hemoglobin 15.7 g/dL (14.0-18.0); Immature Granulocyte Absolute 0.03 K/mm3 (0.00-0.031); Immature Granulocyte Percent A 0.4 % (0-0.5); Lymphocytes Absolute Auto 1.11 K/mm3 (0.9-3.2); Lymphocytes Percent Auto 15.8 % (18.3-44.2); Mean Corpuscular HGB Conc 32.2 g/dl (32-36); Mean Corpuscular Volume 87.1 fl (80-100); Mean Platelet Volume 10.5 fl (7.4-10.4); Monocytes Absolute Auto 0.8 K/mm3 (0.1-0.6); Neutrophils Absolute Auto 4.6 K/mm3 (1.3-6.7); Platelet Count Result 264 k/mm3 (150-375); Red Cell Distribution Width 13.7 % (11.5-14.5)
[2021-11-01 14:11] LABS: Alanine Aminotransferase 25 U/L (4-50); Albumin Level 4.5 g/dL (3.5-5.1); Alkaline Phosphatase 95 U/L (38-126); Anion Gap 7 mmol/L (8-16); Aspartate Amino Transferase 51 U/L (17-59); Bilirubin,Total 0.8 mg/dL (0.2-1.3); Blood Urea Nitrogen 21 mg/dL (9-20); Carbon Dioxide 29 mmol/L (22-30); Chloride 98 mmol/L (98-107); Cholesterol 152 mg/dL (0-200); Estimated Glomerular Filt Rate 60; Glucose 147 mg/dL (65-110); HDL Direct 34 mg/dL; Potassium 3.9 mmol/L (3.4-5.0); Sodium 134 mmol/L (137-145); Triglycerides 118 mg/dL (<150)
[2021-11-01 14:22] LABS: LDL Cholesterol Direct 53 mg/dL
[2021-11-01 14:38] LABS: Creatinine Urine 122.1 mg/dL
[2021-11-01 14:43] LABS: MALB Creatinine Ratio 70.5 mg/g (0-30); Microalbumin Urine Random 86.1 mg/L (0-16.7)
== END 2021-11-01 11:19 | disposition home or self-care (01) ==
LOC: ANHWCLAB 11:20
PROVIDERS: PCP Family Medicine; Visit Provider Internal Medicine Endocrinology, Diabetes & Metabolism
DX: E11.9 Type 2 diabetes mellitus without complications (principal)
CPT/HCPCS: 36415; 80053; 80061; 82043; 82607; 84443; 85025

== ENCOUNTER 2021-11-20 10:28 | Emergency (ER) | payer BC, SELFPAY ==
--- NOTE | ~2021-11-20 | US_ITS ---
EXAMINATION: US venous doppler [facility] DATE: 11/20/2021 11:47 INDICATION: Lower limb pain and swelling. TECHNIQUE: Grayscale ultrasound images without and with compression and Doppler ultrasound images of the bilateral lower extremity veins were obtained. COMPARISON: None. FINDINGS: The visualized portions of right common femoral vein, profunda (deep) femoral vein, femoral vein, pop liteal vein, peroneal veins, posterior tibial veins, and greater saphenous vein outflow are patent. The visualized portions of left common femoral vein, profunda femoral vein, femoral vein, popliteal v ein, peroneal veins, posterior tibial veins, and greater saphenous vein outflow are patent. There is a 2.6 x 1.7 x 1.6 cm left inguinal lymph node. IMPRESSION: 1. No deep venous thrombosis. 2. Mildly enlarged left inguinal lymph node, likely reactive. Reviewed, dictated and finalized at location B.
[2021-11-20 10:32] VITALS: BP 157/102; PULSE 92; RESP 16; TEMP 36.7; O2SAT 91
[2021-11-20 11:20] VITALS: BP 124/88; PULSE 88; RESP 16; O2SAT 98
--- NOTE | 2021-11-20 11:22 | ECG_ITS ---
Measurements Intervals [place] Rate: 84 P: [place]: 0 QRS: 10 QRSD: 96 T: 33 QT: 360 QTc: 426 Interpretive Statements ATRIAL FIBRILLATION CONSIDER INFERIOR INFARCT, AGE INDETERMINATE NONSPECIFIC ST & T-WAVE ABNORMALITY- LAT/HIGH LAT LEADS BASELINE ARTIFACT- I, II, III, AVF, V1 ABNORMAL ECG Electronically Signed On 11-20-2021 12:54:17 CDT by Guillaume Schaefer D.O.
--- NOTE | 2021-11-20 11:24 | ED.EXTPRO ---
HPI - Extremity Problem General Chief complaint: Extremity Problem,Nontraumatic Stated complaint: left leg pain/swelling Time Seen by Provider: 11/20/21 10:30 Source: patient and RN notes reviewed Mode of arrival: ambulatory Limitations: no limitations History of Present Illness HPI Narrative: 66-year-old male with history of atrial fibrillation and lower extremity edema presented to the emergency department for evaluation of worsening bilateral lower extremity swelling, and left lower extremity erythema. Patient states over the last few days he has had increased fatigue and has been subjectively febrile. Patient states that he was supposed to have an ultrasound of his lower extremities prior to COVID but never had follow-up. Patient also states he was supposed to have a cardiac ablation for his atrial fibrillation but also has not had follow-up. 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 Patient states yesterday the left lower extremity became red and tender to palpation. Related Data Home Medications Medication Instructions Recorded Confirmed apixaban 5 mg tablet 5 mg PO BID 11/01/21 11/01/21 metoprolol succinate 50 mg PO BID 11/20/21 Allergies Allergy/AdvReac Type Severity Reaction Status Date / Time Penicillins Allergy Unknown Rash Verified 11/01/21 10:18 Review of Systems Review of Systems: CONSTITUTIONAL: See HPI EYES: Denies visual changes, redness, or discharge. ENT: Denies rhinorrhea, congestion, sore throat, or otalgia. CARDIOVASCULAR: Denies chest pain, palpitations, or edema. RESPIRATORY: Denies cough or dyspnea. GASTROINTESTINAL: Denies abdominal pain, nausea, vomiting, or diarrhea. GENITOURINARY: Denies dysuria or hematuria. SKIN: Denies rash or itching. MUSCULOSKELETAL: See HPI NEUROLOGIC: Denies headache, numbness, or weakness. PSYCHIATRIC: Denies anxiety or depression. All systems reviewed & are unremarkable except as noted in HPI and below [facility] Past Medical History Medical History (Updated 11/20/21 @ 12:36 by Morris Diaz MD) Body mass index [BMI]40.0-44.9, adult (02/12/19) Cancer screening Cervical radiculopathy Chest pain, unspecified Dermatophytosis of foot Diabetes Obesity Obesity, unspecified Occupational exposure to risk factor Other senior care (current) drug therapy Primary insomnia Psoriasis, unspecified Sleep apnea, unspecified Type 2 diabetes mellitus without complications Umbilical hernia with obstruction Umbilical hernia without mention of obstruction or gangrene Varicose veins of lower extremities with inflammation Surgical History Surgical History (Updated 11/01/21 @ 10:24 by Justina Rodriguez [facility]) History of hip replacement Family History Family History Mother Family history of lung cancer, Onset Age: 88 Other Family history of allergic disorder Social History Social History Smoking status: Never smoker Alcohol intake: never Alcohol use details: STATES VERY RARE - SOCIAL EVENTS, [place] AND THE LIKE Substance use: never Substance use type: does not use Spiritual care concerns: No Exam Narrative: APPEARANCE: Well appearing, no pain, no distress, well-nourished. HEAD: normocephalic, atraumatic. EYES: PERRLA/EOMI, conjunctivae clear. THROAT: Pharynx clear, no exudate. NECK: Supple. No adenopathy, no masses. RESPIRATORY: Airway patent, respirations nonlabored. Clear to auscultation bilaterally, no rales, rhonchi, wheezing. CARDIOVASCULAR: Atrial fibrillation with regular rate. ABDOMINAL: Soft, nontender, nondistended, normal bowel sounds MUSCULOSKELETAL: Moves all extremities. Strength/ROM intact, bilateral lower extremity edema worse on left than on right. Erythema on left leg is petechial, significant warmth or tenderness to palpation. NEURO: Alert. Cranial nerves II through XII intact. Good gait. Good coor
--- NOTE | 2021-11-20 11:27 | PC.NURSE ---
Pt to US via w/c. will get blood and ekg upon return.
[2021-11-20 12:07] LABS: Basophils Absolute Auto 0.1 K/mm3 (0.0-0.1); Basophils Percent Auto 0.8 % (0.2-1.2); Eosinophils Absolute Auto 0.1 K/mm3 (0-0.3); Eosinophils Percent Auto 0.5 % (0-4.4); Hematocrit 47.7 % (42.0-52.0); Hemoglobin 15.6 g/dL (14.0-18.0); Immature Granulocyte Absolute 0.05 K/mm3 (0.00-0.031); Immature Granulocyte Percent A 0.4 % (0-0.5); Lymphocytes Absolute Auto 0.75 K/mm3 (0.9-3.2); Lymphocytes Percent Auto 5.6 % (18.3-44.2); Mean Corpuscular HGB Conc 32.7 g/dl (32-36); Mean Corpuscular Hemoglobin 28.4 pg (26-34); Mean Corpuscular Volume 86.9 fl (80-100); Mean Platelet Volume 10.3 fl (7.4-10.4); Monocytes Absolute Auto 1.2 K/mm3 (0.1-0.6); Monocytes Percent Auto 9.3 % (2.6-8.5); Neutrophils Absolute Auto 11.1 K/mm3 (1.3-6.7); Neutrophils Percent Auto 83.4 % (45.5-73.1); Platelet Count Result 240 k/mm3 (150-375); Red Blood Count 5.49 M/mm3 (4.6-6.20); Red Cell Distribution Width 13.7 % (11.5-14.5); White Blood Count 13.3 K/mm3 (4.5-10.0)
[2021-11-20 12:18] LABS: Alanine Aminotransferase 19 U/L (4-50); Alkaline Phosphatase 82 U/L (38-126); Anion Gap 6 mmol/L (8-16); Aspartate Amino Transferase 29 U/L (17-59); Bilirubin,Total 1.2 mg/dL (0.2-1.3); Blood Urea Nitrogen 35 mg/dL (9-20); Calcium 8.6 mg/dL (8.4-10.2); Carbon Dioxide 27 mmol/L (22-30); Chloride 98 mmol/L (98-107); Estimated CRCL calculation 54 ml/min; Estimated Glomerular Filt Rate 47; Glucose 130 mg/dL (65-110); Potassium 4.1 mmol/L (3.4-5.0); Sodium 131 mmol/L (137-145)
[2021-11-20 12:19] LABS: INR 1.3; Prothrombin Time 15.6 Seconds (11.1-14.7)
[2021-11-20 12:20] LABS: Partial Thromboplastin Time 38.8 SECONDS (22.3-36.8)
[2021-11-20 12:29] LABS: Lactic Acid Reflex 1.6 mmol/L (0.7-2.0)
[2021-11-20] MEDS: CLINDAMYCIN HCL 150 MG CAP 300 MG PO (12:56)
[2021-11-20 12:57] VITALS: BP 151/97; PULSE 80; RESP 18; O2SAT 98
== END 2021-11-20 12:57 | disposition home or self-care (01) ==
PROVIDERS: Emergency Provider Emergency Medicine; PCP Family Medicine
DX: L03.116 Cellulitis of left lower limb (principal); I48.91 Unspecified atrial fibrillation; E11.9 Type 2 diabetes mellitus without complications; G47.30 Sleep apnea, unspecified; E66.9 Obesity, unspecified; Z68.38 Body mass index [BMI] 38.0-38.9, adult; Z96.649 Presence of unspecified artificial hip joint; Z79.84 Long term (current) use of oral hypoglycemic drugs; Z79.01 Long term (current) use of anticoagulants; R94.31 Abnormal electrocardiogram [ECG] [EKG]
CPT/HCPCS: 36415; 80053; 83605; 85025; 85610; 85730; 87040; 87147; 87181; 87186; 93005; 93970; 99284; A9270

== ENCOUNTER 2021-11-22 10:49 | Emergency (ER) | payer BC, SELFPAY ==
[2021-11-22 10:50] VITALS: BP 156/85; PULSE 78; RESP 16; TEMP 36.4; O2SAT 99
[2021-11-22 11:25] VITALS: BP 124/88; PULSE 72; RESP 18; O2SAT 99
[2021-11-22 11:56] LABS: Basophils Absolute Auto 0.1 K/mm3 (0.0-0.1); Basophils Percent Auto 1.3 % (0.2-1.2); Eosinophils Absolute Auto 0.2 K/mm3 (0-0.3); Eosinophils Percent Auto 2.3 % (0-4.4); Hematocrit 49.6 % (42.0-52.0); Hemoglobin 15.8 g/dL (14.0-18.0); Immature Granulocyte Absolute 0.09 K/mm3 (0.00-0.031); Immature Granulocyte Percent A 0.9 % (0-0.5); Lymphocytes Absolute Auto 1.09 K/mm3 (0.9-3.2); Lymphocytes Percent Auto 10.6 % (18.3-44.2); Mean Corpuscular HGB Conc 31.9 g/dl (32-36); Mean Corpuscular Hemoglobin 27.9 pg (26-34); Mean Corpuscular Volume 87.6 fl (80-100); Mean Platelet Volume 10.3 fl (7.4-10.4); Monocytes Absolute Auto 1.3 K/mm3 (0.1-0.6); Monocytes Percent Auto 12.2 % (2.6-8.5); Neutrophils Absolute Auto 7.5 K/mm3 (1.3-6.7); Neutrophils Percent Auto 72.7 % (45.5-73.1); Platelet Count Result 313 k/mm3 (150-375); Red Blood Count 5.66 M/mm3 (4.6-6.20); Red Cell Distribution Width 13.8 % (11.5-14.5); White Blood Count 10.3 K/mm3 (4.5-10.0)
[2021-11-22 12:06] LABS: Lactic Acid Reflex 1.5 mmol/L (0.7-2.0)
[2021-11-22 12:09] LABS: Alanine Aminotransferase 23 U/L (4-50); Albumin Level 4.1 g/dL (3.5-5.1); Alkaline Phosphatase 105 U/L (38-126); Anion Gap 7 mmol/L (8-16); Aspartate Amino Transferase 29 U/L (17-59); Bilirubin,Total 1.1 mg/dL (0.2-1.3); Blood Urea Nitrogen 27 mg/dL (9-20); CRP 6.2 mg/dL (<1.0); Calcium 8.6 mg/dL (8.4-10.2); Carbon Dioxide 28 mmol/L (22-30); Chloride 100 mmol/L (98-107); Estimated CRCL calculation 67 ml/min; Estimated Glomerular Filt Rate 60; Glucose 131 mg/dL (65-110); Potassium 4.2 mmol/L (3.4-5.0); Sodium 135 mmol/L (137-145)
[2021-11-22 12:12] LABS: INR 1.3; Prothrombin Time 15.2 Seconds (11.1-14.7)
[2021-11-22 12:13] LABS: Partial Thromboplastin Time 38.8 SECONDS (22.3-36.8)
[2021-11-22 12:28] LABS: SARS-CoV-2 RNA PCR Negative
--- NOTE | 2021-11-22 12:30 | ED.SKABFB ---
HPI - Skin/Abscess/Foreign Bdy General Chief complaint: Skin/Abscess/Foreign Body Stated complaint: left foot cellulitis Time Seen by Provider: 11/22/21 12:00 History of Present Illness HPI narrative: Patient is a 66-year-old male who presents the ER with left lower extremity cellulitis. He was seen on 11/20/2021 for cellulitis. He was prescribed clindamycin. His first dose was at noon on 12/17/2021, he is currently only 48 hours into his therapy. No fevers or chills or sweats. He reports that the redness has not gone down. There is still some tenderness. Reports slight propagation of erythema but is still below his knee. It does not involve the foot and is above the ankle. Edema persists. He continues to take his apixaban. Patient denies any additional symptoms, only that the redness had not gone down and he was told to come back to the ER if it was not getting better. Related Data Home Medications Medication Instructions Recorded Confirmed apixaban 5 mg tablet 5 mg PO BID 11/01/21 11/01/21 metoprolol succinate 50 mg PO BID 11/20/21 Allergies Allergy/AdvReac Type Severity Reaction Status Date / Time Penicillins Allergy Unknown Rash Verified 11/22/21 11:24 Review of Systems Review of Systems: All systems reviewed & are unremarkable except as noted in HPI and below Constitutional: Constitutional: Denies chills, Denies fever(s) and Denies weakness Cardiovascular: Cardiovascular: Denies chest pain, Denies rapid heart rate and Denies radiating jaw, neck or arm pain Respiratory: Respiratory: Denies cough and Denies dyspnea Gastrointestinal: Gastrointestinal: Denies abdominal pain, Denies nausea and Denies vomiting Integumentary/Breasts: Skin/Breast: Denies pruritus, Reports erythema and Denies rash [facility] Past Medical History Medical History (Updated 11/22/21 @ 14:39 by Grant Trammell MD) Body mass index [BMI]40.0-44.9, adult (02/12/19) Cancer screening Cervical radiculopathy Chest pain, unspecified Dermatophytosis of foot Diabetes Obesity Obesity, unspecified Occupational exposure to risk factor 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 Primary insomnia Psoriasis, unspecified Sleep apnea, unspecified Type 2 diabetes mellitus without complications Umbilical hernia with obstruction Umbilical hernia without mention of obstruction or gangrene Varicose veins of lower extremities with inflammation Surgical History Surgical History (Updated 11/01/21 @ 10:24 by Justina Rodriguez [facility]) History of hip replacement Family History Family History Mother Family history of lung cancer, Onset Age: 88 Other Family history of allergic disorder Social History Social History Smoking status: Never smoker Alcohol intake: never Alcohol use details: STATES VERY RARE - SOCIAL EVENTS, [place] AND THE LIKE Substance use: never Substance use type: does not use Spiritual care concerns: No Exam Narrative: GENERAL: Well-appearing, well-nourished, and in no acute distress. HEAD: Normocephalic, atraumatic. ENT: Mucous membranes moist. CHEST: Clear to auscultation. No respiratory distress. HEART: Regular rate and rhythm. Normal peripheral pulses. ABDOMEN: Soft, nontender, nondistended. EXTREMITIES: Normal range of motion. 2+ LLE edema and 1+RLE edema. SKIN: Warm, dry, no rash. Cellulitis left lower leg below knee and above fields. Warm, blanching, no blister/weeping/pustules, mildly tender. NEURO: Alert and oriented x3. PSYCH: Normal mood and affect. Course Course Emergency Course: Patient informed of results. White blood cell count improving. Patient afebrile. I feel like he is right on the cusp of his antibiotics making a visual difference in his cellulitis improving. Recommend return if he has fever or worsening of the redness in his leg but blood work is encouraging at this t
[2021-11-22 14:11] VITALS: BP 131/87; PULSE 73; RESP 18; O2SAT 100
== END 2021-11-22 15:59 | disposition home or self-care (01) ==
PROVIDERS: Emergency Medicine; Physician Assistant; Emergency Provider Emergency Medicine; PCP Family Medicine
DX: L03.116 Cellulitis of left lower limb (principal); Z20.822 Contact with and (suspected) exposure to COVID-19; E11.9 Type 2 diabetes mellitus without complications; E66.9 Obesity, unspecified; Z68.38 Body mass index [BMI] 38.0-38.9, adult; G47.30 Sleep apnea, unspecified; Z96.649 Presence of unspecified artificial hip joint; Z79.84 Long term (current) use of oral hypoglycemic drugs
CPT/HCPCS: 36415; 80053; 83605; 85025; 85610; 85730; 86140; 87040; 99283; C9803; U0003; U0005

== ENCOUNTER 2022-02-27 09:00 | Outpatient (CLI) | payer BC, SELFPAY ==
--- NOTE | 2022-03-19 16:37 | WPDSLEEPSTUD ---
Sleep Study Date of Study: 02/27/22 Ordering Provider: Andre Gil DO Interpreting Physician: Lorenza Dejesus DO Sleep Study Type: Split Polysomnogram Height: 17.98 m Weight: 115.212 kg Body Mass Index: 0.4 Neck Circumference (inches): 17.5 [place]: 9 Reason for Sleep Study Previously diagnosed MELISSA. His machine was recalled. Sleep History The patient is a 67-year-old male with atrial fibrillation, diabetes, psoriasis, obesity, history of stroke (02/04/2022) and previously diagnosed sleep apnea that had a sleep study ordered by his primary care physician to requalify for PAP therapy. The patient did not fill out the sleep intake forms. 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 Primary insomnia Psoriasis, unspecified Sleep apnea, unspecified Type 2 diabetes mellitus without complications Umbilical hernia with obstruction Umbilical hernia without mention of obstruction or gangrene Varicose veins of lower extremities with inflammation Surgical History Surgical History History of hip replacement Family History Family History Mother Family history of lung cancer, Onset Age: 88 Other Family history of allergic disorder Social History Social History Social History: caffeine-coffee daily Smoking status: Never smoker Alcohol intake: never Alcohol use details: STATES VERY RARE - SOCIAL EVENTS, [place] AND THE LIKE Substance use: never Substance use type: does not use Spiritual care concerns: No Medications Home Medications Medication Instructions Recorded Confirmed Type blood-glucose meter (OneTouch #1 pkg 06/05/20 02/25/22 Rx Verio Flex Meter) lancets 30 gauge (OneTouch Delica #1 pkg 06/05/20 02/25/22 Rx Plus Lancet) pen needle, diabetic 32 gauge x #1 pkg 06/05/20 02/25/22 Rx /32 (BD Ultra-Fine Ana Pen Needle) metformin 500 mg tablet,extended 500 mg PO BID #180 tabs 08/17/21 02/25/22 Rx release 24 hr trazodone 100 mg tablet See Rx Instructions .Route 09/27/21 02/25/22 Rx .COMPLEX #30 tabs apixaban 5 mg tablet (Eliquis) 5 mg PO BID 11/01/21 02/25/22 History blood sugar diagnostic (OneTouch #100 strips 11/01/21 02/25/22 Rx Verio test strips) aspirin 81 mg tablet,delayed 81 mg PO DAILY 02/18/22 02/25/22 History release losartan 100 1 tablet PO DAILY #90 tabs 02/18/22 02/25/22 Rx mg-hydrochlorothiazide 25 mg tablet atorvastatin 20 mg tablet 20 mg PO QHS #90 tabs 02/25/22 02/25/22 Rx Sleep Procedure This test was performed using the MyDoc multiple channel system including EOG, EEG, submental EMG, EKG, nasal and oral airflow using thermistors and nasal pressure sensors, chest and abdominal belts for body position data, and pulse oximetry. Video monitoring was also performed. The study was scored using CMS guidelines. Sleep Architecture Diagnostic: The patient had a total recording time of 170.4 minutes and total sleep time of 140 minutes. The sleep efficiency was 82.1%. Sleep latency was 25.4 minutes. The patient did not achieve REM sleep during this part of the study. The patient had 6 awakenings. The patient spent 4 minutes, 2.9% of total sleep time in stage N1. The patient spent 136 minutes, 97.1% of total sleep time in stage N2. The patient spent 0 minutes in stage N3 and REM sleep. Treatment: The patient had a total recording time of 400.4 minutes and total sleep time of 352.5 minutes. The sleep efficiency was 88%. Sleep latency was 0 ligia
== END 2022-02-28 07:27 | disposition home or self-care (01) ==
LOC: ANHCSM 09:00
PROVIDERS: PCP Family Medicine; Visit Provider Family Medicine
DX: G47.33 Obstructive sleep apnea (adult) (pediatric) (principal); G47.61 Periodic limb movement disorder
CPT/HCPCS: 95811

== ENCOUNTER 2022-04-12 01:21 | Day surgery (SDC) | payer BC, SELFPAY ==
[2022-04-08 09:09] VITALS: BMI 34.2
[2022-04-12 11:40] VITALS: BP 165/87; PULSE 98; RESP 18; TEMP 35.9; O2SAT 98
--- NOTE | 2022-04-12 11:46 | WPDANESEPPF ---
Anes - Initial Pre Proc Eval Procedure: Operation Date: 04/12/22 12:30 Proposed Procedures p Screening Colonoscopy - Joe Dupree MD Date/Time: 04/12/22 11:46 Surgeon: Joe Dupree MD Pre Op Diagnosis: neoplasm screening Patient Data Age: 67 Gender: M Height: 1.73 m Weight: 113 kg Last Vital Signs Temp 96.7 F L 04/12/22 11:40 Pulse 98 04/12/22 11:40 Resp 18 04/12/22 11:40 BP 165/87 H 04/12/22 11:40 Pulse Ox 98 04/12/22 11:40 O2 Del Method Room Air 04/12/22 11:40 Allergies Allergy/AdvReac Type Severity Reaction Status Date / Time Penicillins Allergy Intermediate Rash Verified 04/12/22 11:39 Home Medications Medication Instructions Recorded Confirmed Type blood-glucose meter (OneTouch #1 pkg 06/05/20 02/25/22 Rx Verio Flex Meter) lancets 30 gauge (OneTouch Delica #1 pkg 06/05/20 02/25/22 Rx Plus Lancet) pen needle, diabetic 32 gauge x #1 pkg 06/05/20 02/25/22 Rx 5/32 (BD Ultra-Fine Ana Pen Needle) metformin 500 mg tablet,extended 500 mg PO BID #180 tabs 08/17/21 04/08/22 Rx release 24 hr trazodone 100 mg tablet See Rx Instructions .Route 09/27/21 04/08/22 Rx .COMPLEX #30 tabs apixaban 5 mg tablet (Eliquis) 5 mg PO BID 11/01/21 04/08/22 History blood sugar diagnostic (OneTouch #100 strips 11/01/21 02/25/22 Rx Verio test strips) aspirin 81 mg tablet,delayed 81 mg PO DAILY 02/18/22 04/08/22 History release losartan 100 1 tablet PO DAILY #90 tabs 02/18/22 04/08/22 Rx mg-hydrochlorothiazide 25 mg tablet atorvastatin 20 mg tablet 20 mg PO QHS #90 tabs 02/25/22 04/08/22 Rx metoprolol tartrate 50 mg tablet 50 mg PO BID 04/08/22 04/08/22 History Patient hx anesthesia problems: none Family hx anesthesia problems: none Results Review: All pre-operative results and documents have been reviewed as part of the pre-operative evaluation. 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 Primary insomnia Psoriasis, unspecified Sleep apnea, unspecified Type 2 diabetes mellitus without complications Umbilical hernia with obstruction Umbilical hernia without mention of obstruction or gangrene Varicose veins of lower extremities with inflammation Surgical History Surgical History History of hip replacement Family History Family History Mother Family history of lung cancer, Onset Age: 88 Other Family history of allergic disorder Social History Social History Social History: caffeine-coffee daily Smoking status: Never smoker Alcohol intake: current Alcohol use details: STATES VERY RARE - SOCIAL EVENTS, [place] AND THE LIKE Substance use: never Substance use type: does not use Living arrangements: with family Spiritual care concerns: No Anes - Eval Final PreProcedure Day of Procedure 04/12/22 11:46 Patient weight: obese Heart: regular rate and rhythm Lungs: clear to auscultation Airway: Mallampati scale class III Neurological: alert and oriented Last oral intake: >/= 8 hours ASA classification: III Emergent: no Anesthetic plan: proceed Anesthesia type and monitoring: general GIVS and standard monitoring Results Review: All pre-operative results and documents have been reviewed as part of the pre-operative evaluation. Informed Consent: The patient's anesthetic plan and its attendant risks and benefits were discussed with the patient/family/POA. Questions were solicited and answers provided to the satisfaction of the patient/famil
[2022-04-12] MEDS: LACTATED RINGERS 1,000 ML 150 ML IV CONT (11:56)
[2022-04-12] MEDS: SIMETHICONE ORAL SUSPENSION 20 MG/0.3 ML 30 ML BOTTLE 0.6 ML IRRIGATION (12:08)
[2022-04-12 12:13] VITALS: BP 98/51; PULSE 94; RESP 16; O2SAT 98
--- NOTE | 2022-04-12 12:13 | PM.IMHP ---
H&P: HPI History of Present Illness Date/Time: 04/12/22 12:13 Chief Complaint: Neoplasia screening. Narrative: This is a 67-year-old white male patient presents for screening colonoscopy. He reports his current weight appetite bowel movements are normal. He denies abdominal pain. Patient has had no bleeding. Family history noncontributory. Patient has a history of atrial fibrillation diagnosed at the time he had COVID. Now is on Eliquis anticoagulation. Additionally reports in December of this year that he had a CVA with residual speech difficulties. Review of Systems Review of Systems: Review of systems noncontributory. 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 Primary insomnia Psoriasis, unspecified Sleep apnea, unspecified Type 2 diabetes mellitus without complications Umbilical hernia with obstruction Umbilical hernia without mention of obstruction or gangrene Varicose veins of lower extremities with inflammation Surgical History Surgical History History of hip replacement Family History Family History Mother Family history of lung cancer, Onset Age: 88 Other Family history of allergic disorder Social History Social History Social History: caffeine-coffee daily Smoking status: Never smoker Alcohol intake: current Alcohol use details: STATES VERY RARE - SOCIAL EVENTS, [place] AND THE LIKE Substance use: never Substance use type: does not use Living arrangements: with family Spiritual care concerns: No Meds Home Medications and Allergies Home Medications Medication Instructions Recorded Confirmed Type blood-glucose meter (OneTouch #1 pkg 06/05/20 02/25/22 Rx Verio Flex Meter) lancets 30 gauge (OneTouch Delica #1 pkg 06/05/20 02/25/22 Rx Plus Lancet) pen needle, diabetic 32 gauge x #1 pkg 06/05/20 02/25/22 Rx 5/32 (BD Ultra-Fine Ana Pen Needle) metformin 500 mg tablet,extended 500 mg PO BID #180 tabs 08/17/21 04/08/22 Rx release 24 hr trazodone 100 mg tablet See Rx Instructions .Route 09/27/21 04/08/22 Rx .COMPLEX #30 tabs apixaban 5 mg tablet (Eliquis) 5 mg PO BID 11/01/21 04/08/22 History blood sugar diagnostic (OneTouch #100 strips 11/01/21 02/25/22 Rx Verio test strips) aspirin 81 mg tablet,delayed 81 mg PO DAILY 02/18/22 04/08/22 History release losartan 100 1 tablet PO DAILY #90 tabs 02/18/22 04/08/22 Rx mg-hydrochlorothiazide 25 mg tablet atorvastatin 20 mg tablet 20 mg PO QHS #90 tabs 02/25/22 04/08/22 Rx metoprolol tartrate 50 mg tablet 50 mg PO BID 04/08/22 04/08/22 History Allergies Allergy/AdvReac Type Severity Reaction Status Date / Time Penicillins Allergy Intermediate Rash Verified 04/12/22 11:39 Vital Signs Vital Signs - 24 hr 04/12/22 11:40 Temperature 96.7 F L Pulse Rate 98 Respiratory Rate 18 Blood Pressure 165/87 H Pulse Oximetry 98 Oxygen Delivery Room Air Exam Narrative: Patient is alert. Vital signs stable. HEENT exam is unremarkable. Patient anicteric. Lungs are clear to auscultation and percussion. Heart is without murmur or extra sounds. Abdomen bowel sounds present soft nontender with no organomegaly. Digital external rectal exam normal. Assessment and Plan Assessment and plan (1) Encounter for screening colonoscopy: Code(s): Z12.11 - Encounter for screening for malignant neoplasm of colon Status: Acute Assessment and Plan: Patient presents for screening colonoscopy.
[2022-04-12 12:23] VITALS: BP 132/75; PULSE 90; RESP 18; O2SAT 99
[2022-04-12 12:33] VITALS: BP 146/87; PULSE 94; RESP 20; O2SAT 99
== END 2022-04-12 12:45 | disposition home or self-care (01) ==
PROVIDERS: PCP Family Medicine; Visit Provider Internal Medicine Gastroenterology
PROC: 0DJD8ZZ Inspection of Lower Intestinal Tract, Via Natural or Artificial Opening Endoscopic (ICD-10-PCS; CPT 45378; principal; 2022-04-12 12:30)
DX: Z12.11 Encounter for screening for malignant neoplasm of colon (principal); D12.2 Benign neoplasm of ascending colon; K64.8 Other hemorrhoids; Z79.01 Long term (current) use of anticoagulants; Z79.82 Long term (current) use of aspirin; Z79.4 Long term (current) use of insulin; E11.9 Type 2 diabetes mellitus without complications; F51.01 Primary insomnia; M54.12 Radiculopathy, cervical region; L40.9 Psoriasis, unspecified; I83.93 Asymptomatic varicose veins of bilateral lower extremities; E66.9 Obesity, unspecified; Z68.37 Body mass index [BMI] 37.0-37.9, adult
CPT/HCPCS: 45380; 88305; J2704; J7120

== ENCOUNTER 2022-07-17 16:57 | Inpatient (IN) | payer BC, SELFPAY ==
--- NOTE | ~2022-07-17 | CT_ITS ---
EXAMINATION: CTA brain carotid DATE: 07/17/2022 22:35 INDICATION: R sided deficits TECHNIQUE: Computed tomographic angiography (CTA) of the head and neck was performed without and with 100 mL Omnipaque-350 intravenous contrast. Automated exposure control and iterative reconstruction t Fridaynique were employed. The dose-length product was 1178.08 mGy-cm. Maximum intensity projection and volume rendered 3D-reconstructions were created by the technologist on a separate workstation. COMPARISON: CT brain, same date. FINDINGS: CTA HEAD: No large vessel occlusion, aneurysm, high flow vascular malformation, nidus or extravasation. 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 Cavernous carotid calcification without significant stenosis. Left posterior frontal encephalomalacia. Retention cysts or polyps in the right maxillary sinus. CTA NECK: Aortic arch and proximal great vessels: Mild arch ectasia and calcification. Normal arch anatomy. Right common carotid, carotid bifurcation, and internal carotid artery: Minimal calcified and noncalc ified plaque at the bifurcation.There is 0% stenosis of the proximal right internal carotid artery re lative to normal distal artery lumen diameter (NASCET criteria). Left common carotid, carotid bifurcation, and internal carotid artery: Minimal calcified and noncalci fied plaque at the bifurcation.There is 0% stenosis of the proximal left internal carotid artery rela tive to normal distal artery lumen diameter (NASCET criteria). Vertebral arteries: No significant plaque or stenosis. Other findings: Peripheral interstitial change in the lungs. Degenerative disc disease in the cervica l spine. IMPRESSION: 1. No large vessel occlusion. 2. No significant carotid or vertebral stenosis Reviewed, dictated and finalized at location K. N FORESTER
--- NOTE | ~2022-07-17 | CT_ITS ---
EXAMINATION: CT brain wo con DATE: 07/17/2022 17:23 INDICATION: Right-sided numbness. Stroke. TECHNIQUE: Computed tomography (CT) of the head was performed without intravenous contrast. Sagittal and coronal reconstructions were performed. The mA was adjusted according to patient size. Iterative reconstruction technique was employed. The dose-length product was 605.33 mGy-cm. COMPARISON: head CT dated 10/05/2015 and brain MR dated 12/08/2015 FINDINGS: Small to moderate-sized region of encephalomalacia in the posterior left frontal lobe consistent with chronic infarct. No acute intracranial hemorrhage, acute infarction or abnormal extra axial fluid co llection. There is mild scattered white matter hypoattenuation consistent with chronic small vessel i schemic disease. Symmetric prominence of the sulci consistent with mild age-appropriate diffuse cereb ral volume loss. Ventricles are normal and symmetric. No mass/mass effect. Small left and trace righ t mastoid effusions. The orbits and paranasal sinuses are normal. IMPRESSION: 1. No acute intracranial process. 2. Chronic infarct with small to moderate-sized region of encephalomalacia at the posterior left fron jordan lobe. 3. Age related changes including mild diffuse volume loss and mild scattered white matter hypoattenua tion consistent with chronic small vessel ischemic disease. Reviewed, dictated and finalized at location A. ETICIAN MAKEUP ARTIST IMPRESSION: 1. No acute intracranial process. 2. Chronic infarct with small to moderate-sized region of encephalomalacia at t he posterior left frontal lobe. 3. Age related changes including mild diffuse volume loss and mild scattered wh ite matter hypoattenuation consistent with chronic small vessel ischemic diseas e.
--- NOTE | ~2022-07-17 | MR_ITS ---
MRI of the brain Clinical History: Right-sided weakness, ataxia Technique: Axial and sagittal T1-weighted images were acquired. These were followed by axial T2-weigh loni, diffusion weighted, gradient, and FLAIR images. Following intravenous administration of 20 cc Mu ltiHance gadolinium, T1-weighted fat-sat imaging was performed in the axial and coronal planes. Findings: There is cortical and subcortical restricted diffusion in the left parietal lobe, compatibl e with acute infarct. There is a larger, chronic infarct in the left frontal lobe. There is backgroun d mild chronic white matter ischemic change in the periventricular white matter bilaterally. No acute intracranial hemorrhage identified. Ventricles and subarachnoid spaces are unremarkable. Orbits are unremarkable. There is mild left maxi llary sinus disease. Remaining paranasal sinuses are clear. There is small amount of fluid in bilater al mastoid air cells. Major intracranial flow voids are grossly intact. Sagittal midline structures are intact. No abnormal postcontrast enhancement identified. IMPRESSION: Acute left parietal lobe infarct. Larger chronic left frontal lobe infarct. Mild chronic] ischemic changes. Reviewed, dictated and finalized at [facility]. STEM SAWYER
--- NOTE | ~2022-07-17 | XR_ITS ---
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 RESULT: Lines, tubes, and devices: None. Lungs and pleura: Diffuse reticular opacities with indistinct vascular margins. Cardiomediastinal silhouette: Stable cardiomegaly. Other: No acute osseous or upper abdominal finding. IMPRESSION: Interstitial pulmonary edema. Reviewed, dictated and finalized at location K. ER WORKER
--- NOTE | 2022-07-17 17:01 | ECG_ITS ---
Measurements Intervals [place] Rate: 66 P: 61 MD: 251 QRS: 32 QRSD: 83 T: 58 QT: 384 QTc: 405 Interpretive Statements SINUS RHYTHM WITH FIRST DEGREE AV BLOCK NONSPECIFIC T-WAVE ABNORMALITY COMPARED TO ECG 11/20/2021 11:56:01 SINUS RHYTHM NOW PRESENT FIRST DEGREE AV BLOCK NOW PRESENT Electronically Signed On 07-18-2022 14:45:28 LICENSED SALES ASSISTANT by Daisy Rutledge M.D.
[2022-07-17 18:14] VITALS: BP 142/85; PULSE 56; RESP 20; TEMP 36.4; O2SAT 95
[2022-07-17 21:27] VITALS: BP 158/90; PULSE 66; RESP 15; O2SAT 98
[2022-07-17 21:27] LABS: Basophils Absolute Auto 0.1 K/mm3 (0.0-0.1); Basophils Percent Auto 1.6 % (0.2-1.2); Eosinophils Absolute Auto 0.5 K/mm3 (0-0.3); Hematocrit 45.9 % (42.0-52.0); Hemoglobin 14.5 g/dL (14.0-18.0); Immature Granulocyte Absolute 0.04 K/mm3 (0.00-0.031); Immature Granulocyte Percent A 0.4 % (0-0.5); Lymphocytes Absolute Auto 1.85 K/mm3 (0.9-3.2); Lymphocytes Percent Auto 20.6 % (18.3-44.2); Mean Corpuscular HGB Conc 31.6 g/dl (32-36); Mean Corpuscular Hemoglobin 28.5 pg (26-34); Mean Corpuscular Volume 90.2 fl (80-100); Monocytes Absolute Auto 1.2 K/mm3 (0.1-0.6); Monocytes Percent Auto 13.3 % (2.6-8.5); Neutrophils Absolute Auto 5.3 K/mm3 (1.3-6.7); Neutrophils Percent Auto 59.1 % (45.5-73.1); Platelet Count Result 277 k/mm3 (150-375); Red Blood Count 5.09 M/mm3 (4.6-6.20); Red Cell Distribution Width 13.2 % (11.5-14.5)
[2022-07-17 21:45] LABS: INR 1.2; Prothrombin Time 14.5 Seconds (11.1-14.7)
[2022-07-17 21:46] LABS: Partial Thromboplastin Time 31.3 SECONDS (22.3-36.8)
[2022-07-17 22:23] LABS: Alanine Aminotransferase 24 U/L (6-50); Albumin Level 4.2 g/dL (3.5-5.1); Alkaline Phosphatase 67 U/L (38-126); Anion Gap 5 mmol/L (8-16); Aspartate Amino Transferase 29 U/L (17-59); Bilirubin,Total 0.6 mg/dL (0.2-1.3); Blood Urea Nitrogen 25 mg/dL (9-20); Calcium 9.3 mg/dL (8.4-10.2); Carbon Dioxide 32 mmol/L (22-30); Chloride 101 mmol/L (98-107); Estimated CRCL calculation 62 ml/min; Estimated Glomerular Filt Rate 55; Glucose 148 mg/dL (65-110); Potassium 4.3 mmol/L (3.4-5.0); Sodium 138 mmol/L (137-145)
[2022-07-17 22:34] LABS: Troponin I 0.017 ng/mL (0.000-0.034)
[2022-07-17] MEDS: ASPIRIN 81 MG CHEWABLE TABLET 324 MG PO (22:43)
[2022-07-17] MEDS: CLOPIDOGREL BISULFATE 300 MG TABLET PO (22:43)
[2022-07-17 23:23] LABS: Influenza A QL RT-PCR Negative (Negative); Influenza B QL RT-PCR Negative (Negative); RSV RNA, RT-PCR Negative (Negative); SARS-CoV-2 RNA PCR Negative
[2022-07-18] VITALS (7 sets, daily range): BP systolic 119–160; BP diastolic 67–82; PULSE 60–95; RESP 18–20; TEMP 35.9–36.6; O2SAT 97–100; BMI 38.7
--- NOTE | 2022-07-18 01:09 | ED.NEUROSD ---
HPI - Neuro Symptoms/Deficit General Chief Complaint: Suspected CVA Stated Complaint: R SIDED NUMBNESS STARTED 1630 Time Seen by Provider: 07/17/22 21:09 History of Present Illness HPI Narrative: Patient with history of stroke with initial right-sided deficits that had resolved, and speech deficits are still ongoing, presents here with numbness and tingling to his right arm that started at 430 today. He had had a SONIA with cardioversion done earlier this week. Currently on a blood thinner. Related Data Home Medications Medication Instructions Recorded Confirmed apixaban 5 mg tablet (Eliquis) 5 mg PO BID 11/01/21 07/01/22 aspirin 81 mg tablet,delayed 81 mg PO DAILY 02/18/22 07/01/22 release metoprolol tartrate 50 mg tablet 50 mg PO BID 04/08/22 07/01/22 Allergies Allergy/AdvReac Type Severity Reaction Status Date / Time Penicillins Allergy Intermediate Rash Verified 07/01/22 09:54 Review of Systems Review of Systems: CONST: No fever. HEENT: No sore throat C/V: No chest pain RESP: No cough GI: No abdominal pain : No dysuria. M/S: No joint pain. SKIN: No rash. 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 Primary insomnia Psoriasis, unspecified Sleep apnea, unspecified Type 2 diabetes mellitus without complications Umbilical hernia with obstruction Umbilical hernia without mention of obstruction or gangrene Varicose veins of lower extremities with inflammation Surgical History Surgical History History of hip replacement Family History Family History Mother Family history of lung cancer, Onset Age: 88 Other Family history of allergic disorder Social History Social History Social History: caffeine-coffee daily Smoking status: Never smoker Alcohol intake: current Alcohol use details: STATES VERY RARE - SOCIAL EVENTS, [place] AND THE LIKE Substance use: never Substance use type: does not use Lack of Transportation: No Lack of Food: Never True Current Housing: I Have Housing Concerned About Future Housing: No Difficulty Paying Gas/Electric Bills: No Difficulty Paying for Meds: No Currently Unemployed: No Education: Trade/Vocational Certificate Difficulty w/ Childcare or Family Care: No Additional living arrangements comments: Spouse Spiritual care concerns: No Exam Narrative: EXAMINATION OF ORGAN SYSTEMS/BODY AREAS: Constitutional: Vital signs per nursing GENERAL:[No acute distress, non-toxic appearing.] HEAD: Normal with no signs of head trauma. EYES: EOMI, conjunctiva normal ENT: Hearing grossly intact LUNGS: Nonlabored breathing. HEART: [Regular rate and rhythm] ABD: [Soft], nondistended EXT: No deformity SKIN: [No rashes or lesions.] NEURO: [Alert and oriented x 3. Slight dysarthria which is chronic per . He has difficulty with [id number] on the right, and some pronator drift on the right and subjective diminished sensation to the right arm.] PSYCH: Normal affect Course Vital Signs Vital signs: Vital Signs Temperature 97.5 F L 07/17/22 18:14 Pulse Rate 56 L 07/17/22 18:14 Respiratory Rate 20 07/17/22 18:14 Blood Pressure 142/85 H 07/17/22 18:14 Pulse Oximetry 95 07/17/22 18:14 Oxygen Delivery Room Air 07/17/22 18:14 Temperature 97.5 F L 07/17/22 18:14 Pulse Rate 66 07/17/22 21:27 Respiratory Rate 15 07/17/22 21:27 Blood Pressure 158/90 H 07/17/22 21:27 Pulse Oximetry 98 07/17/22 21:27 Oxyge
--- NOTE | 2022-07-18 05:44 | ADMGEN ---
This patient, Kai Stewart, was admitted to [facility] Surg Room 333-01. Patient/family oriented to hospital policies and general routines including ID bracelet, bed and alarms, visiting hours, pain management, procedures, bathroom and other care routines, personal items, smoking policy, room service/diet, and visiting hours. Information on how to activate the Rapid Response Team has been discussed. Patient/Family are encouraged to report perceived risks to care and to ask questions if they do not understand what they are told or what they should do.
--- NOTE | 2022-07-18 08:09 | PM.IMHP ---
H&P: HPI History of Present Illness Date/Time: 07/18/22 08:09 Chief Complaint: right arm numbness and tingling Narrative: Kai Stewart is a 67 yo male with prior stroke in January of this year, diabetes mellitus, sleep apnea, and atrial fibrillation on anticoagulation. He presented to the ED for evaluation of right sided numbness and tingling that started at 1630 on 07/17/22. He had right-sided deficits with his prior stroke that had resolved, as well as speech deficits that improved with outpatient speech therapy. In the ED, he reported progressive worsening and radiation of numbness from his finger tips to right shoulder. He reports some weakness to his right arm, as well as some word finding. He denies facial droop, slurred speech, gait changes, vision changes, DEUTSCH, or dysphasia. He underwent SONIA with cardioversion on 07/15/22 for chronic atrial fibrillation. He reports compliance with his Eliquis since his last stroke. No chest pain, SOB, fatigue, fever, chills, diaphoresis, palpitations, abdominal pain, N/V/D, constipation, dysuria, nocturia, or edema. In the ED, vitals were stable. EKG showed sinus rhythm with first degree AV block and nonspecific T-wave changes. CT head showed old left frontal stroke, but no acute bleeding or mass effect. CTA head and neck was negative for large vessel occlusion. He received loading dose aspirin and plavix and was admitted for Neurology evaluation, therapy evaluation and MRI. Review of Systems Review of Systems: All systems reviewed & are unremarkable except as noted in HPI and below Constitutional: Constitutional: Reports as per HPI Eyes: Eyes: Reports as per HPI ENT: Reports system reviewed and no additional complaints, except as documented and Reports sore throat (intermittent following SONIA ) Cardiovascular: Cardiovascular: Reports as per HPI Respiratory: Respiratory: Reports as per HPI Gastrointestinal: Gastrointestinal: Reports as per HPI Genitourinary: Genitourinary: Reports no additional male genitourinary complaints Musculoskeletal: Musculoskeletal: Reports no additional musculoskeletal complaints Integumentary/Breasts: Skin/Breast: Reports system reviewed and no additional complaints, except as docu Neurologic: Reports system reviewed and no additional complaints, except as documented, Reports Abnormal speech present and Reports numbness Psychiatric: Psychiatric: Reports no additional psychiatric complaints PMFSH Past Medical History Medical History (Updated 07/18/22 @ 11:00 by Pastora Chin APRN) Atrial fibrillation Cervical radiculopathy COVID-19 Hospitalized 14 days in 2019 Dermatophytosis of foot Diabetes Obesity Other longterm (current) drug therapy Psoriasis, unspecified Sleep apnea, unspecified Type 2 diabetes mellitus without complications Umbilical hernia with obstruction Umbilical hernia without mention of obstruction or gangrene Varicose veins of lower extremities with inflammation Surgical History Surgical History (Updated 07/18/22 @ 11:00 by Pastora Chin APRN) History of cardioversion History of hip replacement Family History Family History Mother Family history of lung cancer, Onset Age: 88 Other Family history of allergic disorder Social History Social History (Updated 07/18/22 @ 11:00 by Pastora Chin APRN) Social History: caffeine-coffee daily Smoking status: Never smoker Alcohol intake: never Alcohol use details: STATES VERY RARE - SOCIAL EVENTS, [place] AND THE LIKE Substance use: never Substance use type: does not use Lack of Transportation: No Lack of Food: Never True Current Housing: I Have Housing Concerned About Future Housing: No Difficulty Paying Gas/Electric Bills: No Difficulty Paying for Meds: No Currently Unemployed: No Education: Trade/Vocational Certificate Difficulty w/ Childcare or Family Care: No
[2022-07-18 08:54] LABS: Cholesterol 119 mg/dL (0-200); HDL Direct 28 mg/dL; Triglycerides 289 mg/dL (<150)
[2022-07-18 09:00] LABS: Hemoglobin A1C 7.7 % (<5.7)
[2022-07-18 09:07] LABS: LDL Cholesterol Direct < 30 mg/dL
[2022-07-18] MEDS: ASPIRIN 81 MG ENTERIC TABLET PO (10:49)
[2022-07-18] MEDS: CLOPIDOGREL BISULFATE 75 MG TABLET PO (10:49)
[2022-07-18] MEDS: EMPAGLIFLOZIN 25 MG TABLET PO (10:49)
[2022-07-18] MEDS: LOSARTAN POTASSIUM 100 MG TABLET PO (10:49)
[2022-07-18] MEDS: ATORVASTATIN 40 MG TABLET PO (10:50)
[2022-07-18] MEDS: hydroCHLOROthiazide 25 MG TABLET PO (10:50)
[2022-07-18] MEDS: METOPROLOL TARTRATE 50 MG TAB PO (10:50)
--- NOTE | 2022-07-18 11:23 | PCSTNOTE ---
Patient seen for bedside swallowing evaluation. Patient was given thin liquids by spoon, cup, and straw and pureed and solid foods trials. Strong laryngeal elevation and initiation of swallow. No signs of penetration or aspiration observed. Swallowing appears to be within normal limits. However, silent aspiration cannot be ruled out at bedside. Recommend regular texture diet and regular thin liquids. No speech therapy recommended. Thank you for the referral of this patient.
[2022-07-18 11:28] LABS: Glucose Point of Care 159 mg/dl (65-105)
--- NOTE | 2022-07-18 13:42 | WPDNEURCNPN ---
Assessment and Plan Assessment and plan (1) Atrial fibrillation: Code(s): I48.91 - Unspecified atrial fibrillation Status: Chronic (2) Stroke: Code(s): I63.9 - Cerebral infarction, unspecified Status: Acute (3) Diabetes: Qualifiers: Diabetes mellitus type: type 2 Diabetes mellitus mcfp insulin use: without mcfp use Diabetes mellitus complication status: without complication Qualified Code(s): E11.9 - Type 2 diabetes mellitus without complications Code(s): E11.9 - Type 2 diabetes mellitus without complications Status: Chronic Plan 1 acute left parietal lobe infarct with large chronic left frontal lobe infarct 2 atrial fibrillation 3 negative CTA without significant carotid or vertebral disease. For patient already on apixaban 5 mg twice a day in addition to aspirin 81 mg daily atorvastatin 20 mg daily and diabetic treatment and he is not a smoker treatment will be continued as such Consult date: 07/18/22 HPI: Kai Stewart is a 67 year old male Admitted to the hospital through the emergency room for the complaints of right-sided numbness and in addition to the history of having had a stroke in the past which residual speech deficit, patient has been taking apixaban 5 mg twice a day, aspirin 81 mg daily, metoprolol 50 mg twice a day, does have ongoing history of cervical radiculopathy, so rice is, type 2 diabetes mellitus, he is a never smoker but current alcohol intake initial exam in the Emergency Room otherwise was normal except that he had difficulties in emcqbp-xu-flcd-to-finger on the right with pronator drift and decreased sensation on the right side vital signs were stable blood pressure was 158/90 CBC was normal BMP was normal except blood sugar of 148 screening for influenza AB RSV and starts COVID were negative, patient had a SONIA with cardioversion done earlier this week and was taking apixaban, MRI today documented acute left parietal lobe infarct with large chronic left frontal lobe infarct as well, so CTA with no large vessel occlusion. . 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 Psoriasis, unspecified Sleep apnea, unspecified Type 2 diabetes mellitus without complications Umbilical hernia with obstruction Umbilical hernia without mention of obstruction or gangrene Varicose veins of lower extremities with inflammation Surgical History Surgical History (Updated 07/18/22 @ 11:00 by Pastora Chin APRN) History of cardioversion History of hip replacement Family History Family History Mother Family history of lung cancer, Onset Age: 88 Other Family history of allergic disorder Social History Social History (Updated 07/18/22 @ 11:00 by Pastora Chin APRN) Social History: caffeine-coffee daily Smoking status: Never smoker Alcohol intake: never Alcohol use details: STATES VERY RARE - SOCIAL EVENTS, [place] AND THE LIKE Substance use: never Substance use type: does not use Lack of Transportation: No Lack of Food: Never True Current Housing: I Have Housing Concerned About Future Housing: No Difficulty Paying Gas/Electric Bills: No Difficulty Paying for Meds: No Currently Unemployed: No Education: Trade/Vocational Certificate Difficulty w/ Childcare or Family Care: No Additional living arrangements comments: Spouse Occupation/Education: retired A
--- NOTE | 2022-07-18 15:06 | PM.SD2 ---
Same Day Admit/Disch: HPI History of Present Illness Chief complaint: R Sided Deficits Narrative: Kai Stewart is a 67 yo male with prior stroke in January of this year, diabetes mellitus, sleep apnea, and atrial fibrillation on anticoagulation. He presented to the ED for evaluation of right sided numbness and tingling that started at 1630 on 07/17/22. He had right-sided deficits with his prior stroke that had resolved, as well as speech deficits that improved with outpatient speech therapy. In the ED, he reported progressive worsening and radiation of numbness from his finger tips to right shoulder. He reports some weakness to his right arm, as well as some word finding. He denies facial droop, slurred speech, gait changes, vision changes, DEUTSCH, or dysphasia. He underwent SONIA with cardioversion on 07/15/22 for chronic atrial fibrillation. He reports compliance with his Eliquis since his last stroke. No chest pain, SOB, fatigue, fever, chills, diaphoresis, palpitations, abdominal pain, N/V/D, constipation, dysuria, nocturia, or edema. In the ED, vitals were stable. EKG showed sinus rhythm with first degree AV block and nonspecific T-wave changes. CT head showed old left frontal stroke, but no acute bleeding or mass effect. CTA head and neck was negative for large vessel occlusion. He received loading dose aspirin and plavix and was admitted for Neurology evaluation, therapy evaluation and MRI. [facility] Past Medical History Medical History (Updated 07/18/22 @ 15:23 by Pastora Chin APRN) Atrial fibrillation Cervical radiculopathy COVID-19 Hospitalized 14 days in 2019 Dermatophytosis of foot Diabetes Obesity Other penitentiary (current) drug therapy Psoriasis, unspecified Sleep apnea, unspecified Type 2 diabetes mellitus without complications Umbilical hernia with obstruction Umbilical hernia without mention of obstruction or gangrene Varicose veins of lower extremities with inflammation Surgical History Surgical History (Updated 07/18/22 @ 11:00 by Pastora Chin APRN) History of cardioversion History of hip replacement Family History Family History Mother Family history of lung cancer, Onset Age: 88 Other Family history of allergic disorder Social History Social History (Updated 07/18/22 @ 15:09 by Pastora Chin APRN) Social History: caffeine-coffee daily Smoking status: Never smoker Alcohol intake: never Alcohol use details: STATES VERY RARE - SOCIAL EVENTS, [place] AND THE LIKE Substance use: never Substance use type: does not use Lack of Transportation: No Lack of Food: Never True Current Housing: I Have Housing Concerned About Future Housing: No Difficulty Paying Gas/Electric Bills: No Difficulty Paying for Meds: No Currently Unemployed: No Education: Trade/Vocational Certificate Difficulty w/ Childcare or Family Care: No Additional living arrangements comments: Spouse Additional occupation/education comments: works at [employer] Gender identity (if verbalized by the patient): Male Sexual Orientation (if Verbalized by the Patient): Straight or Heterosexual Spiritual care concerns: No Same Day Admit/Disch: Med Pre-admit Medications Home Medications Medication Instructions Recorded Confirmed Type blood-glucose meter (OneTouch #1 pkg 06/05/20 07/18/22 Rx Verio Flex Meter) lancets 30 gauge (OneTouch Delica #1 pkg 06/05/20 07/18/22 Rx Plus Lancet) pen needle, diabetic 32 gauge x #1 pkg 06/05/20 07/18/22 Rx 5/32 (BD Ultra-Fine Ana Pen Needle) trazodone 100 mg tablet See Rx Instructions .Route 09/27/21 07/18/22 Rx .COMPLEX #30 tabs apixaban 5 mg tablet (Eliquis) 5 mg PO BID 11/01/21 07/18/22 History blood sugar diagnostic (OneTouch #100 strips 11/01/21 07/18/22 Rx Verio test strips) aspirin 81 mg tablet,delayed 81 mg PO DAILY 02/18/22 07/18/22 History release losartan 1
== END 2022-07-18 15:57 | disposition home or self-care (01) | DRG 65 ==
LOC: ANHED 07-18 01:15 → ANH3MEDSUR 07-18 03:22
PROVIDERS: Emergency Medicine; Admitting Provider Internal Medicine; Emergency Provider Emergency Medicine; PCP Family Medicine; Visit Provider Nurse Practitioner Family
DX: I48.20 Chronic atrial fibrillation, unspecified; I63.9 Cerebral infarction, unspecified; I69.351 Hemiplegia and hemiparesis following cerebral infarction affecting right dominant side; I69.328 Other speech and language deficits following cerebral infarction; R29.704 NIHSS score 4; E11.9 Type 2 diabetes mellitus without complications; E66.9 Obesity, unspecified; G47.33 Obstructive sleep apnea (adult) (pediatric); I44.0 Atrioventricular block, first degree; I10 Essential (primary) hypertension; I83.90 Asymptomatic varicose veins of unspecified lower extremity; L40.9 Psoriasis, unspecified; M54.12 Radiculopathy, cervical region; Z20.822 Contact with and (suspected) exposure to COVID-19; Z79.01 Long term (current) use of anticoagulants; Z96.649 Presence of unspecified artificial hip joint; Z79.82 Long term (current) use of aspirin; Z79.84 Long term (current) use of oral hypoglycemic drugs; Z86.16 Personal history of COVID-19; Z68.38 Body mass index [BMI] 38.0-38.9, adult; Z79.899 Other long term (current) drug therapy
CPT/HCPCS: 36415; 70450; 70496; 70498; 70553; 71045; 80053; 80061; 82948; 83036; 84484; 85025; 85610; 85730; 87637; 92523; 92610; 93005; 97161; 99285; A9270; A9577; Q9967

== ENCOUNTER → 2022-08-29 14:28 | Outpatient (CLI) | payer BC, SELFPAY ==
--- NOTE | ~2022-08-29 | XR_ITS ---
EXAMINATION: XR shoulder RT min 2V INDICATION: Right shoulder pain TECHNIQUE: Four views of the right shoulder are submitted. COMPARISON: None FINDINGS: Normal alignment. No fracture. There is moderate osteoarthritis of the glenohumeral and acr omioclavicular joints. Soft tissues are unremarkable. IMPRESSION: 1. Osteoarthritis. Reviewed, dictated and finalized at location L. FIC OR SYSTEM DISPATCHER IMPRESSION: 1. Osteoarthritis.
== END ==
PROVIDERS: PCP Family Medicine; Visit Provider Family Medicine
DX: M25.511 Pain in right shoulder (principal); M19.011 Primary osteoarthritis, right shoulder
CPT/HCPCS: 73030

== ENCOUNTER → 2022-09-02 08:28 | Outpatient (CLI) | payer BC, SELFPAY ==
--- NOTE | ~2022-09-02 | XR_ITS ---
Lumbosacral Spine: AP, oblique, and lateral views Clinical History: Pain Findings: The normal lordotic curve is maintained. The vertebral bodies and posterior elements are i ntact. There are mild facet joint degenerative changes throughout the lumbar spine. There is mild to moderate degenerative disc change at L2-L3. There is minimal degenerative change at remaining lumbar levels. The sacroiliac joints are normally outlined. Impression: Mild degenerative spondylitic changes, as above. Reviewed, dictated and finalized at location M. DITIONARY FIGHTING VEHICLE CREWMAN Impression: Mild degenerative spondylitic changes, as above.
== END ==
PROVIDERS: PCP Family Medicine; Visit Provider Family Medicine
DX: M47.816 Spondylosis without myelopathy or radiculopathy, lumbar region (principal)
CPT/HCPCS: 72110

== ENCOUNTER → 2022-12-19 10:27 | Outpatient (CLI) | payer BC, SELFPAY ==
--- NOTE | ~2022-12-19 | XR_ITS ---
Right Shoulder Technique: AP and axillary views were obtained. Clinical History: Pain Findings: No fracture or dislocation is seen. Osseous alignment is anatomic. There is mild AC joint d egenerative change. Glenohumeral joint is unremarkable. Soft tissues are unremarkable. Impression: Mild AC joint degenerative change. Reviewed, dictated and finalized at [facility] [place]. Impression: Mild AC joint degenerative change.
== END ==
PROVIDERS: PCP Family Medicine; Visit Provider Family Medicine
DX: M19.011 Primary osteoarthritis, right shoulder (principal)
CPT/HCPCS: 73030

== ENCOUNTER → 2023-05-01 08:02 | Outpatient (CLI) | payer BC, SELFPAY ==
--- NOTE | ~2023-05-01 | MR_ITS ---
MRI of the right shoulder Technique: Axial proton-density fat-sat images, coronal proton density fat-sat and T2 fat-sat images, and sagittal T1-weighted and T2 fat-sat images were acquired. Clinical History: Internal derangement Findings: There is severe AC joint degenerative change. Coracoclavicular, coracoacromial, and coracoh umeral ligaments are intact. There is mild supraspinatus and infraspinatus tendinosis with possible mild chronic thickening of the tendons, but no distinct partial or full-thickness tear. Subscapularis tendon is intact with moderat e to advanced tendinosis. Tendon of long head of the biceps is intact. No definite labral tear identified. There is thickening and increased signal of the inferior glenohumeral ligament. There is mild chondro malacia of the glenohumeral joint. No significant joint effusion or fluid distention of the subacromi al/subdeltoid bursa. No muscle atrophy or edema. Impression: Thickening and increased signal of the inferior glenohumeral ligament can be seen in setting of adhes markos capsulitis. Correlate clinically. Severe AC joint degenerative change. Rotator cuff tendinosis. No definite rotator cuff or labral tear seen. Reviewed, dictated and finalized at location . Impression: Thickening and increased signal of the inferior glenohumeral ligament can be se en in setting of adhesive capsulitis. Correlate clinically. Severe AC joint degenerative change. Rotator cuff tendinosis. No definite rotator cuff or labral tear seen.
== END ==
PROVIDERS: PCP Family Medicine; Visit Provider Family Medicine
DX: M24.811 Other specific joint derangements of right shoulder, not elsewhere classified (principal); R93.6 Abnormal findings on diagnostic imaging of limbs
CPT/HCPCS: 73221

== ENCOUNTER 2023-09-30 11:41 | Outpatient (CLI) | payer BC, SELFPAY ==
[2023-09-30 18:45] LABS: Basophils Absolute Auto 0.2 K/mm3 (0.0-0.1); Basophils Percent Auto 1.4 % (0.2-1.2); Eosinophils Absolute Auto 0.3 K/mm3 (0-0.3); Eosinophils Percent Auto 3.1 % (0-4.4); Hematocrit 44.6 % (42.0-52.0); Immature Granulocyte Absolute 0.09 K/mm3 (0.00-0.031); Immature Granulocyte Percent A 0.8 % (0-0.5); Lymphocytes Absolute Auto 1.16 K/mm3 (0.9-3.2); Lymphocytes Percent Auto 10.9 % (18.3-44.2); Mean Corpuscular HGB Conc 31.4 g/dl (32-36); Mean Corpuscular Hemoglobin 29.3 pg (26-34); Mean Corpuscular Volume 93.3 fl (80-100); Mean Platelet Volume 10.5 fl (7.4-10.4); Monocytes Absolute Auto 0.9 K/mm3 (0.1-0.6); Monocytes Percent Auto 8.7 % (2.6-8.5); Neutrophils Percent Auto 75.1 % (45.5-73.1); Platelet Count Result 292 k/mm3 (150-375); Red Blood Count 4.78 M/mm3 (4.6-6.20); White Blood Count 10.6 K/mm3 (4.5-10.0)
[2023-09-30 19:07] LABS: Alanine Aminotransferase 39 U/L (6-50); Albumin Level 3.6 g/dL (3.5-5.1); Alkaline Phosphatase 83 U/L (38-126); Anion Gap 4 mmol/L (8-16); Aspartate Amino Transferase 55 U/L (17-59); Bilirubin,Total 0.6 mg/dL (0.2-1.3); Blood Urea Nitrogen 25 mg/dL (9-20); Calcium 8.9 mg/dL (8.4-10.2); Carbon Dioxide 32 mmol/L (22-30); Chloride 100 mmol/L (98-107); Cholesterol 64 mg/dL (0-200); Estimated Glomerular Filt Rate 46; Glucose 114 mg/dL (65-110); HDL Direct 37 mg/dL; Potassium 4.2 mmol/L (3.4-5.0); Sodium 136 mmol/L (137-145); Triglycerides 66 mg/dL (<150)
[2023-09-30 21:14] LABS: LDL Cholesterol Direct < 30 mg/dL
== END 2023-09-30 11:42 | disposition home or self-care (01) ==
LOC: ANHGOSHLAB 11:42
PROVIDERS: PCP Family Medicine; Visit Provider Family Medicine
DX: R53.83 Other fatigue (principal); Z13.220 Encounter for screening for lipoid disorders; Z13.29 Encounter for screening for other suspected endocrine disorder; Z13.228 Encounter for screening for other metabolic disorders
CPT/HCPCS: 36415; 80053; 80061; 84443; 85025

== ENCOUNTER 2023-10-08 12:42 | Outpatient (CLI) | payer BC, SELFPAY ==
--- NOTE | ~2023-10-08 | CT_ITS ---
CT head without contrast Indication: Syncope COMPARISON: 07/09/2022 Technique: Serial scans were obtained through the brain without the administration of contrast. Dose reduction technique was used on this scan by utilizing automated exposure control and iterative recon struction technique. The dose-length product (DLP) was 599.57 mGy-cm. Findings: There is no evidence of intracranial hemorrhage, mass lesion, or acute infarct. The ventri cles and subarachnoid spaces are dilated, consistent with mild atrophy. Stable chronic left frontal l obe infarct. Low attenuation regions are seen within the periventricular white matter bilaterally, li heidi representing changes from chronic microvascular ischemic disease. There is no evidence of edema, mass effect or midline shift. The visualized paranasal sinuses and mastoid air cells are clear. Impression: No intracranial hemorrhage, mass, or acute infarct. Stable chronic left frontal lobe infarct. Atrophy and chronic white matter changes, as above. Reviewed, dictated and finalized at [facility]. Impression: No intracranial hemorrhage, mass, or acute infarct. Stable chronic left frontal lobe infarct. Atrophy and chronic white matter changes, as above.
== END 2023-10-08 12:43 ==
PROVIDERS: PCP Family Medicine; Visit Provider Family Medicine
DX: R90.82 White matter disease, unspecified (principal)
CPT/HCPCS: 70450

== ENCOUNTER 2023-11-17 15:41 | Outpatient (CLI) | payer BC, SELFPAY ==
[2023-11-17 18:43] LABS: Basophils Absolute Auto 0.1 K/mm3 (0.0-0.1); Basophils Percent Auto 1.3 % (0.2-1.2); Eosinophils Absolute Auto 0.4 K/mm3 (0-0.3); Eosinophils Percent Auto 3.8 % (0-4.4); Hematocrit 45.9 % (42.0-52.0); Hemoglobin 14.7 g/dL (14.0-18.0); Immature Granulocyte Absolute 0.05 K/mm3 (0.00-0.031); Immature Granulocyte Percent A 0.5 % (0-0.5); Lymphocytes Absolute Auto 1.12 K/mm3 (0.9-3.2); Lymphocytes Percent Auto 11.6 % (18.3-44.2); Mean Corpuscular Hemoglobin 29.1 pg (26-34); Mean Corpuscular Volume 90.7 fl (80-100); Monocytes Absolute Auto 1.1 K/mm3 (0.1-0.6); Monocytes Percent Auto 11.5 % (2.6-8.5); Neutrophils Absolute Auto 6.9 K/mm3 (1.3-6.7); Neutrophils Percent Auto 71.3 % (45.5-73.1); Platelet Count Result 284 k/mm3 (150-375); Red Blood Count 5.06 M/mm3 (4.6-6.20); White Blood Count 9.7 K/mm3 (4.5-10.0)
[2023-11-17 19:45] LABS: Alanine Aminotransferase 35 U/L (6-50); Alkaline Phosphatase 74 U/L (38-126); Anion Gap 8 mmol/L (4-12); Aspartate Amino Transferase 42 U/L (17-59); Bilirubin,Total 0.9 mg/dL (0.2-1.3); Blood Urea Nitrogen 19 mg/dL (9-20); Calcium 9.1 mg/dL (8.4-10.2); Carbon Dioxide 31 mmol/L (22-30); Chloride 99 mmol/L (98-107); Estimated Glomerular Filt Rate 40; Glucose 95 mg/dL (65-110); Lipase 166 U/L (23-300); Magnesium 1.3 mg/dL (1.6-2.3); Potassium 3.7 mmol/L (3.4-5.0); Sodium 138 mmol/L (137-145)
== END 2023-11-17 15:42 | disposition home or self-care (01) ==
LOC: ANHGOSHLAB 15:42
PROVIDERS: PCP Family Medicine; Visit Provider Family Medicine
DX: Z13.228 Encounter for screening for other metabolic disorders (principal); R11.10 Vomiting, unspecified; E86.0 Dehydration; R53.83 Other fatigue
CPT/HCPCS: 36415; 80053; 83690; 83735; 85025

== ENCOUNTER 2024-10-25 00:24 | Day surgery (SDC) | payer BC, SELFPAY ==
[2024-10-22 12:25] VITALS: BMI 33.0
--- NOTE | 2024-10-25 | ECHO_ITS ---
Patient Info Name: Kai Stewart Age: 69 years : 1955 Gender: Male Ht: 69 in Wt: 223 lbs BSA: 2.25 m2 HR: 63 bpm Exam Date: 10/25/2024 11:15 AM Exam Location: Echo Lab Patient Status: Outpatient Admit Date: 10/25/2024 Staff Ordering Physician: Franco Holloway MD ([email or web address]/[email or web address]) Heel Varnisher: Niki Gary RDCS Attending Provider: Franco Holloway MD (suman) Exam Type: CA echo transesophageal Study Info Indications - STATUS POST LAAO Complete two-dimensional, color flow and Doppler transesophageal study is performed. Procedure Details The patient arrived in a fasting state after obtaining informed consent. Sedation was provided by anesthesia. The transesophageal probe was passed into the posterior pharynx, mid-esophagus, and distal esophagus. Imaging was performed at multiple levels. The patient tolerated the procedure well and there were no complications. The patient was transferred out of the examination area in satisfactory condition. Summary 1. There is no thrombus in the visualized portions of atrial appendage. There is a well-seated Amulet device at the ostium of the left atrial appendage. There are no sophy-device leak. 2. There is a small septal defect with left to right shunt most likely from recent atrial septal puncture. 3. No pericardial effusion. Left Ventricle The left ventricle is normal in size and systolic function. Right Ventricle The right ventricle is normal in size and systolic function. Left Atria The left atrium is normal size. Right Atria The right atrium is normal size. Atrial Septum There is a small septal defect with left to right shunt most likely from recent atrial septal puncture. Atrial Appendage There is no thrombus in the visualized portions of atrial appendage. There is a well-seated Amulet device at the ostium of the left atrial appendage. There are no sophy-device leak. Aortic Valve The aortic valve opens well. There is trace aortic regurgitation. Pulmonic Valve The pulmonic valve is grossly normal. There is no color Doppler evidence of pulmonic valve regurgitation. Mitral Valve The mitral valve is normal. There is trace mitral regurgitation. Tricuspid Valve The tricuspid valve is normal. Pericardium/Pleural No pericardial effusion. Aorta Mild atherosclerotic plaque in the visualized portions of the ascending aorta. Report Signatures
--- OUTSIDE RECORDS SUMMARY | 2024-10-25 00:27 | XMS_ITS | Clinical Summary ---
Author Organization [facility] Address [address] [place] [address] Care Team Providers Care Cherry Sorter Name Role Phone Chinmay Avelar MD Primary Care Provider [phone] Source Comments [facility],non-owned Affiliates and Associated Physician Practices is amultiple site organization consisting of ambulatory clinics and hospital sitesin [place], [place], [place]. This disclosure is being madepursuant to the Care Everywhere program and may not contain all information available regarding this patient. Last updated 18.[facility] Allergies Active Allergy Reactions Criticality Noted Date Comments Penicillins 06/08/2013 rash Medications * Be aware that medications may not be up to date on this document. Alwaysverify current medications with the patient. Medication Sig Dispensed Refills Start Date End Date Status aspirin (ASPIRIN) 81 MG chew tablet Take 1 (one) tablet by mouth once daily 02/08/2022 Active apixaban (ELIQUIS) 5 MG tablet Take 1 (one) tablet by mouth every 12 hours 60 tablet 4 02/10/2022 Active metFORMIN ER 24hr (GLUCOPHAGE XR) 500 MG tablet Take 1 (one) tablet by mouth 2 times daily with morning and evening meal 02/08/2022 Active atorvastatin (LIPITOR) 40 MG tablet Take 1 (one) tablet by mouth at bedtime 30 tablet 11 02/07/2022 Active buPROPion XL 24hr (Wellbutrin-XL) 300 MG tablet Take 1 (one) tablet by mouth every morning Active dapagliflozin propanediol (Farxiga) 10 MG tablet Take 1 (one) tablet by mouth every morning Active ondansetron, disintegrating, (Zofran ODT) 4 MG tablet Take 1 (one) tablet by mouth every 8 hours as needed for Nausea/Vomiting 11/18/2023 Active Ozempic, 1 MG/DOSE, 4 MG/3ML pen Inject 1 (one) mg subcutaneously every 7 days 10/06/2023 Active traZODone (Desyrel) 100 MG tablet Take 2 (two) tablets by mouth at bedtime 01/04/2024 Active metoprolol tartrate IR (Lopressor) 25 MG tablet Take 1 (one) tablet by mouth 2 times daily 12/27/2023 Active meclizine (Antivert) 25 MG tablet Take 1 (one) tablet by mouth 3 times daily as needed for Dizziness 15 tablet 01/20/2024 Active losartan-hydroCHLO ROthiazide (Hyzaar) 100-12.5 MG tablet Take 1 (one) tablet by mouth once daily 01/27/2024 Active Active Problems Problem Noted Date Diagnosed Date Weakness 01/16/2024 Falls frequently 01/16/2024 Imbalance 01/16/2024 Middle cerebral artery stenosis, left 02/04/2022 Right sided weakness 02/03/2022 Acute on chronic diastolic congestive heart fail ure 12/08/2021 DOBBS (dyspnea on exertion) 12/08/2021 Leukocytosis 12/08/2021 MELISSA on CPAP 12/08/2021 Primary hypertension 12/08/2021 Type 2 diabetes mellitus wit hout complication, without long-term current use of insulin 12/08/2021 Chest pain 12/07/2021 A-fib 12/05/2021 Anticoagulation management encounter 11/03/2021 Overview (02/03/2022): Last Assessment & Plan: The patient has a [id number] score of 3 (annualized risk of stroke 3 %). I have therefore recommended that he remain anticoagulated for thromboprophylaxis. Dizzy 06/15/2017 Elevated troponin 06/15/2017 Social History Tobacco Use Types Packs/Day Years Used Date Smoking Tobacco: Never Smokeless Tobacco: Never Tobacco Cessation:Counseling Given: Yes Alcohol Use Standard Drinks/Week Comments Yes 2.5 (1 standard drink = 0.6 oz p ure alcohol) beer social AUDIT-C Answer Date Recorded Q1: How often do you have a drink containing alcohol? Never 02/03/2022 Q2: How many drinks containi ng alcohol do you have on a typical day when you are drinking? Patient does not drink Q3: How often do you have si x or more drinks on one occasion? Never 02/03/2022 Hunger Vital Sign Answer Date Recorded Worried About Running Out of Food in the Last Ye ar Not on file 02/04/2022 Within the past 12 months, t he food you bought just didn't last and you didn't have money to get more. Never true 02/04/2022 Sex and Gender Information Value Date Recorded Sex Assigned at Not on file Gender Identity Not on file Sexual Orientation Not on file Last Filed Vital Signs Vital Sign Reading Time Taken Comments Blood Pressure 157/90 01/20/2024 12:49 PM CDT Pulse 81 01/20/2024 12:49 PM CDT Temperature 36.8 C (98.3 F) 01/20/2024 12:49 PM CDT Respiratory Rate 18 01/20/2024 12:4 9 PM CDT Oxygen Saturation 100% 01/20/2024 12: 49 PM CDT Inhaled Oxygen Concentration - - Weight 118.8 kg (261 lb 12.8 oz) 01/17/2024 3:59 AM CDT Height 175.3 cm (5' 9 ) 01/16/2024 12:2 5 AM CDT Body Mass Index 38.66 01/16/2024 12:25 AM CDT Plan of Treatment Health Maintenance Due Date Last Done Comments COLOGUARD (AGES 45-75) - COLON CA SCREENING 1955 COLON MONITORING 1955 COLONOSCOPY - COLON CA SCREENING 1955 CT COLONOGRAPHY - COLON CA SCREENING 1955 Colorectal Cancer Screening 1955 FIT - COLON CA SCREENING 1955 FLEX SIG - COLON CA SCREENING 1955 MEDICARE AWV 12 MONTHS 1955 HEPATITIS C SCREENING 01/21/1972 DTAP/TDAP/TD VACCINES (1 - Tdap) 1973 PNEUMOCOCCAL VACCINE 50+ (1 of 2 - PCV) 1973 ZOSTER VACCINE (1 of 2) 01/26/2004 Respiratory Syncytial Virus (RSV) Vaccine Pt: or over 60 yrs (1 - Risk 60-74 years 1-dose series) 2014 DIABETES RETINOPATHY SCREENING 02/03/2022 DIABETES-FOOT EXAM WITH MONOFILAMENT 02/03/2022 DIABETES-HGB A1C 08/06/2022 02/03/2022, , 06/15/2017 COVID-19 VACCINE ( season) 2024 11/20/2020, 10/30/2020 DEPRESSION SCREENING 07/21/2024 DIABETES - URINE PROTEIN SCREENING 07/21/2024 DIABETES-SERUM CREATININE 01/18/20252023, 01/17/2024, 01/16/2024, Additional history exists INFLUENZA VACCINE (Season Ended) 2025 05/12/2018 HEPATITIS B VACCINE Aged Out No longe r eligible based on patient's age to complete this topic HIB VACCINE Aged Out No longer eligi ble based on patient's age to complete this topic HPV VACCINE Aged Out No longer eligi ble based on patient's age to complete this topic MENINGOCOCCAL (Group B) VACCINE SHARED DECISION-MAKING Aged Out No longer eligible based on patient's age to complete this topic MENINGOCOCCAL GROUPS A/C/Y/W VACCINE Aged Out No longer eligible based on patient's age to complete this topic Medical Devices Implanted Type Area Webbing Weaver Device Identifier Shelf Expiration Date Model / Serial / Lot Biomet Acetabular Shell Ring Loc Size 24 Implanted:Qty: 1 on 06/11/2013 by Charles Kang MD at [facility] [place] Right: Hip 03/21/2023 [id number] / / [id number] Scrw Selftap Lo Prof Ti 6.5 X 25mm Implanted:Qty: 1 on 06/11/2013 by Charles Kang MD at [facility] [place] Right: Hip 04/20/2023 [id number] / / [id number] Scrw Selftap Lo Prof Ti 6.5 X 25mm Implanted:Qty: 1 on 06/11/2013 by Charles Kang MD at [facility] [place] Right: Hip 04/20/2023 [id number] / / [id number] Ringloc Acetabular Liner 36mm/Hi-Wall, Size 24 Implanted:Qty: 1 on 06/11/2013 by Charles Kang MD at [facility] [place] Right: Hip [employer] 04/19/2018 [id number] / / [id number] Taperloc Femoral Stem 12 X 144mm High Offset Type 1 Implanted:Qty: 1 on 06/11/2013 by Charles Kang MD at [facility] [place] Right: Hip [employer] 01/17/2022 [id number] / / [id number] Biolox Taper Adapter Plus 6 Neck Implanted:Qty: 1 on 06/11/2013 by Charles Kang MD at [facility] [place] Right: Hip [employer] 03/19/2022 [id number] / / [id number] Biolox Delta Option Ceramic Head 36mm Implanted:Qty: 1 on 06/11/2013 by Charles Kang MD at [facility] [place] Right: Hip [employer] 05/19/2023 [id number] / / [id number] Procedures Procedure Name Priority Date/Time Associated Diagnosis Comments BASIC METABOLIC PANEL (CALCIUM TOTAL) AM Draw 01/19/2024 1:25 AM CDT HEMOGLOBIN A1C Add on 02/03/2022 9:25 PM CDT from Last 3 Months or Most Recently Relevant to Health Maintenance Results * (ABNORMAL) BASIC METABOLIC PANEL (CALCIUM TOTAL) (01/19/2024 1:25 AM CDT) [facility] Glucose 85 70 - 105 mg/dL 01/19/2024 1:55 AM CDT [facility] Sodium 138 136 - 145 mmol/L 01/19/2024 1:55 AM CDT [facility] Potassium 4.2 3.5 - 5.1 mmol/L 01/19/2024 1:55 AM CDT [facility] Chloride 102 98 - 107 mmol/L 01/19/2024 1:55 AM CDT [facility] CO2 26 22 - 29 mmol/L 01/19/2024 1:55 AM CDT [facility] Calcium 8.5 8.4 - 10.4 mg/dL 01/19/2024 1:55 AM CDT [facility] Anion Gap 10 6 - 16 mmol/L 01/19/2024 1:55 AM CDT [facility] BUN 19 7 - 26 mg/dL 01/19/2024 1:55 AM CDT [facility] Creatinine 1.52(H) 0.72 - 1.25 mg/dL 01/19/2024 1:55 AM CDT [facility] eGFR by CKD-EPI 49(L) >=90 mL/min/1.7 3 m2 01/19/2024 1:55 AM CDT [facility] Blood BLOOD SPECIMEN / Unknown Venipuncture / Unknown 01/19/2024 1:25 AM CDT 01/19/2024 1:29 AM CDT Sandra Borrero MD LAB - CHEMISTRY [facility] Organization Address City/State/ZIP Co de Phone Number [facility] [address] [place] [address] * (ABNORMAL) HEMOGLOBIN A1C (02/03/2022 9:25 PM CDT) Hemoglobin A1c 6.3(H) <5.7 % 02/04/2022 7:42 AM CDT [facility] Estimated Average Glucose 134 mg/dL 02/04/2022 7:42 AM CDT [facility] Blood BLOOD SPECIMEN / Unknown Venipuncture / Unknown 02/03/2022 9:25 PM CDT 02/03/2022 9:29 PM CDT Narrative [facility] - 02/04/2022 7:42 AM CDT HbA1c Interpretation: Normal: < 5.7% Pre-diabetes: 5.7-6.4% Diabetes: Equal to or greater than 6.5% Test results diagnostic of diabetes should be repeated for confirmation. Treatment target values recommended by ADA and other clinical organizations should be used to evaluate metabolic control in patients. This test should not replace glucose testing for patients with Type 1 diabetes, pediatric patients, or women. Falsely low HbA1c results may be observed in patients with clinical conditions that shorten erythrocyte life span or decrease mean erythrocyte age such as the presence of unstable hemoglobin variants, elevated hemoglobin F level or other causes of hemolytic anemia. HbA1c may not accurately reflect glycemic control when clinical conditions that affect erythrocyte survival are present. Severe Iron deficiency anemia may yield falsely high results. Hemoglobin A1c assay should not be used to diagnose or monitor diabetes in patients with malignancy, recent blood transfusion, chronic kidney or liver disease. This method may yield falsely low results when hemoglobin (HbF) exceeds 5% in the specimen. The [employer]enee [employer] Software Engineer assay for the measurement of HbA1c is a National Glycohemoglobin Standardization Program (NGSP) certified method. Matt Mcqueen MD LAB - CHEMISTRY [facility] [address] [place] [address] from Last 3 Months or Most Recently Relevant to Health Maintenance Advance Directives * Full Code (Latest Code Status on File) Date Activated Date Inactivated Comments 01/16/2024 4:58 AM 01/20/2024 5:13 PM * Full Code Date Activated Date Inactivated Comments 02/04/2022 7:16 AM 02/07/2022 6:24 PM * FULL RESUSCITATION Date Activated Date Inactivated Comments 06/11/2013 10:00 AM 06/14/2013 4:00 PM Care Teams Cherry Sorter Relationship Specialty Start Date End Date Rosio, K Max, MD [address] [place] [address] PCP - General Family Medicine 06/11/13
--- OUTSIDE RECORDS SUMMARY | 2024-10-25 00:28 | XMS_ITS | Clinical Summary ---
Author Organization [facility] Address [address] [place] [address] Care Team Providers Care Sr. Media Manager Name Role Phone Andre Gil Primary Care Provider [phone] Allergies Active Allergy Reactions Criticality Noted Date Comments Penicillins Hives 12/06/2021 Medications ELIQUIS 5 MG tabletIndication s:Atrial Fibrillation Take 1 tablet by mouth every 12 (twelve) hours. Indications: Atrial Fibrillation 10/18/19 22 Active ONETOUCH VERIO test strip USE STRIP TO CHECK GLUCOSE THREE TIMES A WEEK 11/02/19 22 Active losartan-hydroCH LOROthiazide (HYZAAR) 100-25 MG tabletIndication s:HTN Take 1 tablet by mouth daily. Indications: HTN 10/23/19 22 Active metFORMIN ER 500 MG 24 hr tabletIndication s:diabetes Take 1 tablet by mouth 2 (two) times daily. Indications: diabetes 10/25/19 22 Active traZODone 100 MG tabletIndication s:insomnia Take 1 tablet by mouth nightly at bedtime. Indications: insomnia 09/28/19 22 Active atorvastatin (LIPITOR) 40 MG tabletIndication s:HLD Take 1 tablet by mouth nightly at bedtime. Indications: HLD Active buPROPion XL (WELLBUTRIN XL) 300 MG 24 hr tabletIndication s:depression Take 1 tablet by mouth daily. Indications: depression Active dapagliflozin (FARXIGA) 10 MG tabletIndication s:diabetes Take 1 tablet by mouth daily. Indications: diabetes Active melatonin 10 MG tabletIndication s:insomnia Take 1 tablet by mouth nightly at bedtime. Indications: insomnia Active aspirin 81 MG chewable tabletIndication s:anticoagulatio n Chew 1 tablet by mouth daily. Indications: anticoagulation Active amLODIPine (NORVASC) 10 MG tabletIndication s:HTN Take 1 tablet by mouth daily. Indications: HTN 02/19/20 24 025 Active psyllium (METAMUCIL 4 IN 1 FIBER) 51.7 % packetIndication s:constipation Take 1 packet by mouth daily. Indications: constipation Active magnesium oxide (MAG-OX) 400 (240 Mg) MG tabletIndication s:supplement Take 1 tablet (400 mg total) by mouth daily. 30 tablet 03/01/20 24 Active metoprolol tartrate (LOPRESSOR) 25 MG tabletIndication s:HTN Take 0.5 tablets (12.5 mg total) by mouth 2 (two) times daily. 60 tablet 1 03/07/20 24 Active Active Problems Problem Noted Date Diagnosed Date Urethral stricture 03/02/2024 Physical deconditioning 03/02/2024 COVID-19 02/28/2024 Falls frequently 01/16/2024 Impairment of balance 01/16/2024 Weakness 01/16/2024 Morbid (severe) obesity due to excess calories 0 02/20/2022 CVA (cerebral vascular accident) ([facility] C) 02/15/2022 Middle cerebral artery stenosis, left 02/04/2022 Right sided weakness 02/03/2022 Acute on chronic diastolic c ongestive heart failure ([facility]) 12/08/2021 Leukocytosis 12/08/2021 MELISSA on CPAP 12/08/2021 Pain and swelling of left lower leg 12/08/2021 Primary hypertension 12/08/2021 Type 2 diabetes mellitus wit hout complication, without long-term current use of insulin ([facility]) 12/08/2021 A-fib ([facility]) 12/05/2021 Anticoagulation management encounter 11/03/2021 Overview (03/02/2024): Last Assessment & Plan: -remains compliant on Eliquis therapy, asymptomatic -[id number] is 5 -recommend continued therapy for thromboprophylaxis -history of cardioembolic stroke after stopping his anticoagulation post ablation Persistent atrial fibrillati on with rapid ventricular response ([facility]) 11/01/2021 Overview (03/02/2024): Added automatically from request for surgery [id number] Last Assessment & Plan: -symptomatic, persistent atrial fibrillation recurred despite cardioversion and beta-tracy therapy -status post radiofrequency catheter ablation with Dr. Patino -remains compliant on Eliquis and metoprolol therapy, asymptomatic -no medication changes were made at this visit -EKG upon my review today demonstrates sinus rhythm at 63 beats per minute -follow-up in 12 months for 12 lead EKG and clinic visits Social History Tobacco Use Types Packs/Day Years Used Date Smoking Tobacco: Never Smokeless Tobacco: Never Alcohol Use Standard Drinks/Week Comments Yes 0 (1 standard drink = 0.6 oz pur e alcohol) OASIS D0700: Social Isolation Answer Da te Recorded Frequency of experiencing loneliness or isolatio n Never 04/08/2024 OASIS A1250: Transportation Answer Date Recorded Lack of Transportation (Medical) No 04/08/2024 Lack of Transportation (Non-Medical) No 04/08/2024 Patient Unable or Declines to Respond No 04/08/2024 OASIS B1300: Health Literacy Answer Emil e Recorded Frequency of needing help to read materials from doctor or pharmacy Never 04/08/2024 [facility] Utilities Answer Date Recorded In the past 12 months has e [employer], or [employer] threatened to shut off services in your home? Patient declined 03/02/2024 Humiliation, Afraid, Rape, and Kick questionnair e Answer Date Recorded Within the last year, have y ou been afraid of your partner or ex-partner? Patient declined 03/02/2024 Within the last year, have y ou been humiliated or emotionally abused in other ways by your partner or ex-partner? Patient declined 03/02/2024 Within the last year, have y ou been kicked, hit, slapped, or otherwise physically hurt by your partner or ex-partner? Patient declined 03/02/2024 Within the last year, have y ou been raped or forced to have any kind of sexual activity by your partner or ex-partner? Patient declined 03/02/2024 Overall Financial Resource Strain (CARDIA) Answe r Date Recorded How hard is it for you to pa y for the very basics like food, housing, medical care, and heating? Patient declined 03/02/2024 Hunger Vital Sign Answer Date Recorded Within the past 12 months, y ou worried that your food would run out before you got the money to buy more. Patient declined Within the past 12 months, t he food you bought just didn't last and you didn't have money to get more. Patient declined PRAPARE - Transportation Answer Date Re corded In the past 12 months, has l ack of transportation kept you from medical appointments or from getting medications? Patient declined 03/02/2024 In the past 12 months, has l ack of transportation kept you from meetings, work, or from getting things needed for daily living? Patient declined 03/02/2024 Housing Stability Vital Sign Answer Emil e Recorded In the last 12 months, was t here a time when you were not able to pay the mortgage or rent on time? Patient declined 03/02/20 24 In the past 12 months, how m any times have you moved where you were living? 0 03/02/2024 At any time in the past 12 m [facility], were you homeless or living in a longterm (including now)? Patient declined 03/02/2024 Sex and Gender Information Value Date Recorded Sex Assigned at Not on file Legal Sex Male 5:14 PM CDT Gender Identity Not on file Sexual Orientation Not on file Last Filed Vital Signs Vital Sign Reading Time Taken Comments Blood Pressure 128/64 04/08/2024 9:19 AM CDT Pulse 62 04/08/2024 9:19 AM CDT Temperature 37.3 C (99.1 F) 04/08/2024 9:19 AM CDT Respiratory Rate 18 04/08/2024 9:19 AM CDT Oxygen Saturation 98% 04/08/2024 9:19 AM CDT Inhaled Oxygen Concentration - - Weight 101.1 kg (222 lb 12.8 oz) 03/07/2024 3:45 AM CDT Height 172.7 cm (5' 8 ) 03/02/2024 11:0 0 AM CDT Body Mass Index 33.88 03/02/2024 11:00 AM CDT Plan of Treatment Health Maintenance Due Date Last Done Comments Colorectal Cancer Screening Colonoscopy (10 Years) 1955 Kidney Health Evaluation 1955 Diabetes: Retinopathy Eye Exam 01/26/1972 Hepatitis C 01/26/1972 RSV Immunization or 60+ Years (1 - Risk 60-74 years 1-dose series) 2014 Zoster Vaccines (2 of 3) 02/13/2014 12/19/2013 Annual Medicare Wellness Visit 2019 Pneumococcal Vaccine: 65+ Years (3 of 3 - PPSV23 or PCV20) 2019 07/19/2015, 12/16/2013 Hemoglobin A1C 08/06/2022 02/03/2022, 12/09/2021 COVID-19 Vaccine (3 - 2023-2 5 season) 2024 11/20/2020, 10/30/2020 DTaP, Tdap and Td Vaccines ( 2 - Td or Tdap) 11/16/2024 11/16/2014, 04/15/2006 Lipid Panel 12/09/2024 12/10/2023, 02/04/2022, 12/08/2021 Meningococcal B Vaccine Aged Out No l onger eligible based on patient's age to complete this topic Meningococcal Vaccine Aged Out No gene eloy eligible based on patient's age to complete this topic RSV Immunizations Under 20 Months Aged Out No longer eligible b ased on patient's age to complete this topic Insurance [facility] MEDICARE Advance Directives * Full Code (Latest Code Status on File) Date Activated Date Inactivated Comments 03/13/2024 2:43 PM * Full Code Date Activated Date Inactivated Comments 03/02/2024 11:33 AM 03/07/2024 3:17 PM * Full Code Date Activated Date Inactivated Comments 02/29/2024 9:49 AM 03/02/2024 11:32 AM Care Teams Sr. Media Manager Relationship Specialty Start Date End Date Andre Gil DO [address] [facility] [address] [address] PCP - General FAMILY PRACTICE 02/28/24
--- NOTE | 2024-10-25 09:00 | WPDANESEPPF ---
Anes - Initial Pre Proc Eval Procedure: Operation Date: 10/25/24 11:00 Proposed Procedures p Trans Esophageal Echo - Franco Holloway MD Date/Time: 10/25/24 09:00 Surgeon: Franco Holloway MD Pre Op Diagnosis: status post Laao Patient Data Age: 69 Gender: M Height: 1.75 m Weight: 101.6 kg Allergies Allergy/AdvReac Type Severity Reaction Status Date / Time Penicillins Allergy Intermediate Rash Verified 10/22/24 11:26 Home Medications ?Medication ?Instructions ?Recorded ?Confirmed ?Type blood sugar diagnostic (OneTouch #100 strips 11/10/23 10/11/24 Rx Verio test strips) blood-glucose meter (OneTouch #1 pkg 11/10/23 10/11/24 Rx Verio Flex Meter) dapagliflozin propanediol 10 mg 10 mg PO QAM #90 tabs 11/10/23 10/22/24 Rx tablet (Farxiga) lancets 30 gauge (OneTouch Delica #1 pkg 11/10/23 10/11/24 Rx Plus Lancet) melatonin 10 mg capsule 10 mg PO QHS 02/17/24 10/22/24 History trazodone 100 mg tablet 100 mg PO DAILY 02/17/24 10/22/24 History metoprolol tartrate 25 mg tablet 12.5 mg PO BID 03/12/24 10/22/24 History amlodipine 10 mg tablet 10 mg PO DAILY 10/22/24 10/22/24 History clopidogrel 75 mg tablet 75 mg PO DAILY 10/22/24 10/22/24 History finasteride 5 mg tablet 5 mg PO DAILY 10/22/24 10/22/24 History losartan 25 mg tablet (Cozaar) 25 mg PO DAILY 10/22/24 10/22/24 History metformin 500 mg tablet,extended 500 mg PO BID 10/22/24 10/22/24 History release 24 hr Patient hx anesthesia problems: none Family hx anesthesia problems: none Results Review: All pre-operative results and documents have been reviewed as part of the pre-operative evaluation. [facility] Past Medical History Medical History COVID-19 (~02/2024) Atrial fibrillation Stroke 06/2022 Ataxia of right upper extremity Irregular heart rhythm BMI greater than 40 Hyperlipidemia LDL goal <100 Cervical radiculopathy Dermatophytosis of foot Other terminal gauger (current) drug therapy Psoriasis, unspecified Sleep apnea, unspecified Type 2 diabetes mellitus without complications Umbilical hernia with obstruction Umbilical hernia without mention of obstruction or gangrene Varicose veins of lower extremities with inflammation Acute renal failure Acute respiratory failure with hypoxia COVID-19 Hospitalized 14 days in 2019 Sepsis Atrial fibrillation with rapid ventricular response Benign essential HTN Obesity Urethral stricture Surgical History Surgical History History of cardioversion History of hip replacement Family History Family History Mother Family history of lung cancer, Onset Age: 88 Other Family history of allergic disorder Social History Social History Social History: caffeine-coffee daily Smoking status: Never smoker Alcohol intake: never Alcohol use details: STATES VERY RARE - SOCIAL EVENTS, [place] AND THE LIKE Substance use: never Substance use type: does not use Lack of Transportation: No Lack of Food: Never True Current Housing: I Have Housing Concerned About Future Housing: No Difficulty Paying Gas/Electric Bills: No Difficulty Paying for Meds: No Currently Unemployed: No Education: Trade/Vocational Certificate Difficulty w/ Childcare or Family Care: No Living arrangements: with family Additional living arrangements comments: Spouse Occupation/Education: retired Additional occupation/education comments: works at [employer] Gender identity (if verbalized by the patient): Male Sexual Orientation (if Verbalized by the Patient): Straight or Heterosexual Spiritual care concerns: No Anes - Eval Final PreProcedure Day of Procedure 10/25/24 09:00 Patient weight: obese Heart: regular rate and rhythm Lungs: clear to auscultation Airway: Mallampati scale class III Neurological: alert and oriented Last oral intake: >/= 8 hours ASA classification: III Emergent: no Anesthetic plan: proceed Anesthesia type and monitoring: general GIVS and standard monitoring Results Review: All pre-operative results and documents have been reviewed as part of the pre-operative evaluation. Informed Consent: The patient's anesthetic plan and its attendant risks and benefits were discussed with the patient/family/POA. Questions were solicited and answers provided to the satisfaction of the patient/family/POA.
[2024-10-25 10:10] VITALS: BP 139/77; PULSE 62; RESP 16; TEMP 36.4; O2SAT 96
--- NOTE | 2024-10-25 10:23 | WPDHPUPDATE1 ---
History and Physical Update Update Date/Time: 10/25/24 10:23 History and Physical has been reviewed, including an updated exam of the patient. There are NO changes in the patient's condition. Risks, benefits, and alternatives have been discussed and questions answered. Patient agrees to proceed with procedure.
[2024-10-25 11:45] VITALS: BP 104/59; PULSE 56; RESP 16; O2SAT 99
[2024-10-25 12:00] VITALS: BP 102/64; PULSE 60; RESP 14; O2SAT 99
[2024-10-25 12:15] VITALS: BP 112/47; PULSE 56; RESP 16; O2SAT 95
[2024-10-25 12:30] VITALS: BP 117/72; PULSE 54; RESP 16; O2SAT 100
[2024-10-25 12:45] VITALS: BP 117/76; PULSE 56; RESP 16; O2SAT 100
== END 2024-10-25 13:02 | disposition home or self-care (01) ==
PROVIDERS: PCP Nurse Practitioner; Visit Provider Internal Medicine
PROC: (CPT 93312; principal; 2024-10-25 11:00)
DX: I48.0 Paroxysmal atrial fibrillation (principal); I25.10 Atherosclerotic heart disease of native coronary artery without angina pectoris; I51.0 Cardiac septal defect, acquired; I12.9 Hypertensive chronic kidney disease with stage 1 through stage 4 chronic kidney disease, or unspecified chronic kidney disease; E11.22 Type 2 diabetes mellitus with diabetic chronic kidney disease; N18.31 Chronic kidney disease, stage 3a; Z95.818 Presence of other cardiac implants and grafts; Z86.73 Personal history of transient ischemic attack (TIA), and cerebral infarction without residual deficits
CPT/HCPCS: 93312; 93320; 93325; J2250; J2704; J3010; J7030

== ENCOUNTER 2025-02-04 10:42 | Outpatient (CLI) | payer BC, SELFPAY ==
--- OUTSIDE RECORDS SUMMARY | 2025-02-04 10:45 | XMS_ITS | Clinical Summary ---
Author Organization [facility] [place] [address] Address [address] [place] [address] Care Team Providers Care Bulk Sausage Casing Tier Off Name Role Phone Grant Patino MD Unavailable [phone] Andre Gil DO Primary Care Provider [phone] Allergies Active Allergy Reactions Criticality Noted Date Comments Penicillins Rash Medium Medications metFORMIN XR (GLUCOPHAGE XR) 500 mg 24 hr tablet Take 1 tablet (500 mg total) by mouth 2 (two) times a day with meals 05/30/2020 Active traZODone (DESYREL) 100 mg tablet Take 1 tablet (100 mg total) by mouth nightly 09/27/2021 Active blood glucose diagnostic (OneTouch Verio test strips) strip 11/01/2021 Active amLODIPine (NORVASC) 10 mg tablet Take 1 tablet (10 mg total) by mouth daily 30 tablet 11 02/19/2024 02/19/20 25 Active losartan (COZAAR) 25 mg tablet Take 1 tablet (25 mg total) by mouth every morning Active finasteride (PROSCAR) 5 mg tablet Take 1 tablet (5 mg total) by mouth every morning Active melatonin 10 mg tablet Take 1 tablet (10 mg total) by mouth nightly Active dapagliflozin propanediol (FARXIGA) 10 mg tablet Take 1 tablet (10 mg total) by mouth daily Active metoprolol XL (TOPROL-XL) 25 mg extended release tablet Take 0.5 tablets (12.5 mg total) by mouth daily Takes one half pill Active clopidogreL (PLAVIX) 75 mg tabletIndication s:coronary artery disease Take 1 tablet (75 mg total) by mouth daily 30 tablet 11 04/24/2024 04/24/20 25 Active Active Problems Problem Noted Date Diagnosed Date Presence of left atrial appendage closure device 04/22/2024 Physical deconditioning 03/02/2024 COVID-19 02/28/2024 Falls frequently 01/16/2024 Impairment of balance 01/16/2024 Weakness 01/16/2024 Morbid (severe) obesity due to excess calories 0 02/20/2022 CVA (cerebral vascular accident) 02/15/2022 Middle cerebral artery stenosis, left 02/04/2022 Right sided weakness 02/03/2022 Primary hypertension 12/08/2021 MELISSA on CPAP 12/08/2021 Troponin I above reference range 12/08/2021 Leukocytosis 12/08/2021 Pain and swelling of left lower leg 12/08/2021 DOBBS (dyspnea on exertion) 12/08/2021 Type 2 diabetes mellitus wit hout complication, without long-term current use of insulin 12/08/2021 Acute on chronic diastolic congestive heart fail ure 12/08/2021 Chest pain 12/07/2021 A-fib 12/05/2021 Anticoagulation management encounter 11/03/2021 Assessment & Plan (03/26/2023 3:37 PM CDT): -remains compliant on Eliquis therapy, asymptomatic -[id number] is 5 -recommend continued therapy for thromboprophylaxis -history of cardioembolic stroke after stopping his anticoagulation post ablation Assessment & Plan (11/03/2021 12:57 PM CDT): The patient has a [id number] score of 3 (annualized risk of stroke 3 %). I have therefore recommended that he remain anticoagulated for thromboprophylaxis. Persistent atrial fibrillati on with rapid ventricular response 11/01/2021 Overview (11/01/2021): Added automatically from request for surgery [id number] Assessment & Plan (03/26/2023 3:38 PM CDT): -symptomatic, persistent atrial fibrillation recurred despite cardioversion and beta-tracy therapy -status post radiofrequency catheter ablation with Dr. Patino -remains compliant on Eliquis and metoprolol therapy, asymptomatic -no medication changes were made at this visit -EKG upon my review today demonstrates sinus rhythm at 63 beats per minute -follow-up in 12 months for 12 lead EKG and clinic visits Assessment & Plan (11/03/2021 12:56 PM CDT): Persistent atrial fibrillation, symptomatic. His atrial arrhythmia has recurred despite cardioversion and beta-tracy therapy. We discussed options for management. The patient does not wish to consider antiarrhythmic drug therapy. As an alternative, we discussed catheter ablation. We discussed the rationale for atrial fibrillation ablation, including the steps involved in ablation. I detailed the risks of the procedure, including vascular injury/hematoma, myocardial injury/perforation, stroke, myocardial infarction, pulmonary vein stenosis, thermal esophageal injury, phrenic nerve injury, and . I estimated a 70-80 % chance of freedom from long-term atrial arrhythmia, and the patient understands that occasionally a second procedure is necessary. Because of the patient's persistent atrial fibrillation, I recommended that they undergo transesophageal echocardiography (to exclude the presence of left atrial thrombus) immediately prior to EP study and ablation. My office will make the appropriate arrangements. From: July, Juan J LS, Bita JS, Marianne H, Jonathan KISHORE, Shayy JE, Shaniqua ARNOLD, Amber PT, Phuc STEELE, ME, Yonas KT, Vincent RL, Kedar WG, Taiwo PJ, Helene CM, Luisa CW. 2014 AHA/ACC/HRS guideline for the management of patients with atrial fibrillation: a report of the [place] College of Cardiology/[place] Heart Association Task Force on Practice Guidelines and the Heart Rhythm Society. J Am Lien Cardiol 2014. 6.3. AF Catheter Ablation to Maintain Sinus Rhythm: Recommendations Class IIb AF catheter ablation may be considered prior to initiation of antiarrhythmic drug therapy with class I or III antiarrhythmic medication for symptomatic persistent AF, when a rhythm control strategy is desired. (Level of Evidence: C) Dizzy 06/15/2017 Surgical History Surgery Date Site/Laterality Comments URETHRAL DILATION 02/19/2020 - 03/20/2020 has had many COLONOSCOPY UMBILICAL HERNIA REPAIR CARDIOVERSION x1 ABLATION cardiac JOINT REPLACEMENT Right GUZMAN Medical History Medical History Date Comments Atrial fibrillation (HCC) Diabetes mellitus (HCC) Sleep apnea Vertigo Stroke (HCC) x2 (01/28/2022 & 07/17/2022) right sided weakness, aphasia Hypertension CHF (congestive heart failure) (HCC) Type 2 diabetes mellitus (HCC) Personal history of COVID-19 ear ly Mar 2024 Family History Medical History Relation Name Comments Odin Thomas Father Lung cancer Mother Diabetes Sister 1 Maite Hearing loss Sister 2 older sister Heart attack Sister 3 Tamiko Relation Name Status Comments Father (Age 29) Mother (Age 57) Sister 1 Maite Sister 2 older sister Sister 3 Tamiko Social History Tobacco Use Types Packs/Day Years Used Date Smoking Tobacco: Never Smokeless Tobacco: Never Tobacco Cessation:Counseling Given: Not Answered Alcohol Use Standard Drinks/Week Comments Yes 0 (1 standard drink = 0.6 oz pur e alcohol) rarely [facility] Utilities Answer Date Recorded In the past 12 months has th e electric, gas, oil, or water company threatened to shut off services in your home? No 04/23/2024 Social Connection and Isolat ion Panel [NHANES] Answer Date Recorded In a typical week, how many times do you talk on the phone with family, friends, or neighbors? Three times a week 04/23/2024 How often do you get togethe r with friends or relatives? Once a week 04/23/2024 How often do you attend [facility] or sikh services? More than 4 times per year 04/23/2024 Do you belong to any clubs o r organizations such as jew groups, unions, fraternal or athletic groups, or school groups? No 04/23/2024 How often do you attend meet ings of the clubs or organizations you belong to? Never 04/23/2024 Are you , , di vorced, , never , or living with a partner? 04/23/2024 AUDIT-C Answer Date Recorded Q1: How often do you have a drink containing alcohol? Never 04/22/2024 Q2: How many drinks containi ng alcohol do you have on a typical day when you are drinking? Patient does not drink Q3: How often do you have si x or more drinks on one occasion? Never 04/22/2024 Overall Financial Resource Strain (CARDIA) Answe r Date Recorded How hard is it for you to pa y for the very basics like food, housing, medical care, and heating? Not hard at all 04/23/2024 Hunger Vital Sign Answer Date Recorded Within the past 12 months, y ou worried that your food would run out before you got the money to buy more. Never true 04/23/20 24 Within the past 12 months, t he food you bought just didn't last and you didn't have money to get more. Never true 04/23/2024 PRAPARE - Transportation Answer Date Re corded In the past 12 months, has l ack of transportation kept you from medical appointments or from getting medications? No 10/2023 In the past 12 months, has l ack of transportation kept you from meetings, work, or from getting things needed for daily living? No 04/23/2024 Housing Stability Vital Sign Answer Emil e Recorded In the last 12 months, was t here a time when you were not able to pay the mortgage or rent on time? No 04/23/2024 In the past 12 months, how m any times have you moved where you were living? 1 04/23/2024 At any time in the past 12 m [facility], were you homeless or living in a nursing home (including now)? No 04/23/2024 Personal Safety Answer Date Recorded Have you ever been in or are you currently in a harmful physical or emotional relationship or is someone making you feel afraid or unsafe? 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 Gender Identity Not on file Sexual Orientation Not on file Obstetrics History Last Filed Vital Signs Vital Sign Reading Time Taken Comments Blood Pressure 138/80 10/06/2024 2:34 PM CDT Pulse 58 10/06/2024 2:34 PM CDT Temperature 36.6 C (97.8 F) 04/23/2024 11:58 AM CDT Respiratory Rate 20 04/23/2024 11:58 AM CDT Oxygen Saturation 96% 10/06/2024 2:34 PM CDT Inhaled Oxygen Concentration - - Weight 101.6 kg (224 lb) 10/06/2024 2:34 PM CDT Height 175.3 cm (5' 9) 10/06/2024 2:34 PM CDT Body Mass Index 33.08 10/06/2024 2:34 PM CDT Plan of Treatment Health Maintenance Due Date Last Done Comments Albumin Creatinine Ratio, Urine 1955 Colon Cancer Screening-Colonoscopy 1955 Depression Screening 1955 Hepatitis C Screening 1955 Dilated Eye Exam 1954 Foot Exam 1955 DTaP/Tdap/Td Vaccine (1 - Tdap) 1965 Hepatitis B Screening 01/26/1972 Pneumococcal vaccine 65+ (1 of 2 - PCV) 1973 Zoster Vaccine (1 of 2) 01/26/2004 Well Visit 65+ 2019 Hemoglobin A1C 10/07/2024 04/09/2024, 01/18, 12/09/2021 Influenza Vaccine (#1) 2025 05/12/2018 Fall Risk Assessment 04/23/2025 04/23/2024 eGFR 04/23/2025 04/23/2024, 03/22, 12/12/2021, Additional history exists Lipid Panel 10/06/2025 10/06/2024, 11/19, 02/04/2022, Additional history exists Medical Devices Implanted Type Area Import Customer Service Manager Device Identifier Shelf Expiration Date Model / Serial / Lot Vascade Mvp 6-12fr Venous Closure [id number] - [id number] - [id number] Implanted:Qty: 1 on 12/05/2021 by Grant Patino MD at [facility] Collagen Right: Femoral [employer] 10/03/2023 [id number] [id number] / [id number] [id number] / [id number] [id number] Vascade Mvp 6-12fr Venous Closure [id number] - [id number] - [id number] Implanted:Qty: 1 on 12/05/2021 by Grant Patino MD at [facility] Collagen Left: Femoral [employer] 10/03/2023 [id number] 10U / [id number] 16B / [id number] [id number] [employer] Vascade 6/7fr Bioabsorbable Vascular System Compression Collagen [id number] - [id number] - [id number] Implanted:Qty: 1 on 12/05/2021 by Grant Patino MD at [facility] Collagen Right: Femoral [employer] 07/09/2023 [id number] 05U / [id number] 06A / [id number] [employer] V[employer] System Closure Repair Femoral Artery Suture Mediated Perclose Prostyle 33945-64 - [id number] Implanted:Qty: 1 on 04/22/2024 by Maonlo Sinclair MD at [facility] [employer] 01/17/2026 [id number] / / [id number] [employer] V[employer] System Closure Repair Femoral Artery Suture Mediated Perclose Prostyle 97423-45 - [id number] Implanted:Qty: 1 on 04/22/2024 by Manolo Sinclair MD at [facility] [employer] 01/17/2026 [id number] / / [id number] [employer] Percutaneous Transcatheter Amplatzer Amulet 22mm [id number] - [id number] Implanted:Qty: 1 on 04/22/2024 by Manolo Sinclair MD at [facility] V[employer] 11/17/2028 [id number] / / [id number] Procedures Procedure Name Priority Date/Time Associated Diagnosis Comments POCT LIPID PANEL Routine 10/06/2024 2:26 PM CDT Paroxysmal atrial fibrillation (HCC) Presence of left atrial appendage closure device History of CVA (cerebrovascular accident) Stage 3a chronic kidney disease (HCC) EGFR Routine 04/23/2024 4:11 AM CDT HEMOGLOBIN A1C Routine 04/09/2024 9:56 AM CDT Pre-op testing from Last 3 Months or Most Recently Relevant to Health Maintenance Results * POCT lipid panel (10/06/2024 2:26 PM CDT) Cholesterol, POC <100 mg/dL HDL, POC 34 mg/dL Triglycerides, POC 124 mg/dL LDL Cholesterol POC 40.2 mg/dL Chol/HDL Ratio, POC n/a Non-HDL Cholesterol, POC n/a mg/dL Cholesterol Total, POC <100 mg/dL Capillary blood 10/06/2024 2 :26 PM CDT Manolo Sinclair MD POINT OF CARE TEST ORDERABLES Fi nal Result * (ABNORMAL) eGFR (04/23/2024 4:11 AM CDT) eGFR 47(L) >=60 mL/min/1. 73 m2 Comment: Interpretive Data Reference Interval Normal >/= 90 mL/min/1.73m2 Mildly decreased* 60 - 89 mL/min/1.73m2 Mildly to moderately decreased 45 - 59 mL/min/1.73m2 Moderately to severely decreased 30 - 44 mL/min/1.73m2 Severely decreased 15 - 29 mL/min/1.73m2 Kidney Failure < 15 mL/min/1.73m2 *Relative to young adult level Estimated glomerular filtration rate is determined by the 2020 CKD-EPI equation recommended by the National Kidney Foundation (A Unifying Approach to GFR Estimation: Recommendations of the NKF-ASK Task Force on Reassessing the Inclusion of Race in Diagnosing Kidney Disease, JASN 2020). The CKD-EPI equation should not be used for patients with unstable renal function and has not been validated in children and those over 70. Current interpretive data was last reviewed 2021. Blood 04/23/2024 4:11 AM CDT 04/23/2024 5:04 AM CDT Manolo Sinclair MD LAB BLOOD [place]AB[place] [id number] [address] Department [place] [address] * Hemoglobin A1c (04/09/2024 9:56 AM CDT) Hgb A1C 5.1 4.0 - 5.6 % Estimated Average Glucose 100 mg/dL [place] Comment: The ADA recommends reporting an estimated Average Glucose (eAG) with all Hemoglobin A1c results using the equation derived from a study of 507 normal and diabetic adults. Minority populations were underrepresented and children were not included. (Diabetes Care 31:3388-8016, 2008). The eAG is not equivalent to a fasting glucose. Blood 04/09/2024 9:56 AM CDT 04/09/2024 9:59 AM CDT us Manolo Sinclair MD LAB BLOOD [place] [address] [address] Department [place] [address] from Last 3 Months or Most Recently Relevant to Health Maintenance Insurance [employer] [place] [employer] [id number] [facility] Advance Directives For more information, please contact: [phone] * Full Code (Latest Code Status on File) Date Activated Date Inactivated Comments 12/07/2021 10:53 PM 12/12/2021 4:52 PM Care Teams Bulk Sausage Casing Tier Off Relationship Specialty Start Date End Date Andre Gil DO [address] [facility] [address] [place] [address] PCP - General Family Medicine 02/20/22 Grant Patino MD [address] [place] [address] Consulting Physician Cardiology 12/12/21
--- OUTSIDE RECORDS SUMMARY | 2025-02-04 10:45 | XMS_ITS | Clinical Summary ---
Author Organization [facility] Address [address] [place] [address] Care Team Providers Care Occupational Health Nursing Director Name Role Phone Andre Gil Primary Care Provider [phone] Allergies Active Allergy Reactions Criticality Noted Date [...] calories 0 02/20/2022 CVA (cerebral vascular accident) ([facility]/ C) 02/15/2022 Middle cerebral artery stenosis, left 02/04/2022 Right sided weakness 02/03/2022 Acute on chronic diastolic c ongestive heart failure ([facility]) 12/08/2021 Leukocytosis 12/08/2021 MELISSA on CPAP 12/08/2021 Pain and swelling of left lower leg 12/08/2021 Primary hypertension 12/08/2021 Type 2 diabetes mellitus wit hout complication, without long-term current use of insulin ([facility]) 12/08/2021 A-fib ([facility]) 12/05/2021 Anticoagulation management encounter 11/03/2021 Overview (03/02/2024): Last Assessment & Plan: -remains compliant on Eliquis therapy, asymptomatic -[id number] is 5 -recommend continued therapy for thromboprophylaxis -history of cardioembolic stroke after stopping his anticoagulation post ablation Persistent atrial fibrillati on with rapid ventricular response ([facility]) 11/01/2021 Overview (03/02/2024): Added automatically from request for surgery [id number] Last Assessment & Plan: -symptomatic, persistent atrial [...] materials from doctor or pharmacy Never 04/08/2024 [facility] Utilities Answer Date Recorded In the past 12 months has e [employer], or water [employer] threatened to shut off services in your [...] any time in the past 12 m [facility], were you homeless or living in a penitentiary (including now)? Patient declined 03/02/2024 Sex and [...] 3:45 AM CDT Height 172.7 cm (5' 8) 03/02/2024 11:0 0 AM CDT Body Mass Index 33.88 03/02/2024 11:00 AM CDT Plan of Treatment Upcoming Encounters Date Type Department Care Team (Late st Contact Info) Description 02/08/2025 2:[address] [facility] [address] [place] [address] [place] [address] [place], [place] [id number] Pili Mayorga, RESCUE WORKER [address] [facility] [address] [place] [address] Health Maintenance Due Date Last Done Comments Colorectal Cancer Screening Colonoscopy (10 Years) 1955 Kidney Health Evaluation 1954 Diabetes: Retinopathy Eye Exam 01/26/1972 Hepatitis C 01/26/1972 RSV Immunization or 60+ Years (1 - Risk 60-74 years 1-dose series) 2014 Zoster Vaccines (2 of 3) 02/13/2014 12/19/2013 Annual Medicare Wellness Visit 2019 Pneumococcal Vaccine: 50+ Years (3 of 3 - PCV20 or PCV21) 07/19/2020 07/19/2015, 12/16/2013 Hemoglobin A1C 08/06/2022 02/03/2022, 12/09/2021 [...] patient's age to complete this topic Insurance BLUE [employer] MEDICARE Advance Directives * Full Code (Latest Code Status on File) Date Activated Date Inactivated Comments 03/13/2024 2:43 PM * Full Code Date Activated Date Inactivated Comments 03/02/2024 11:33 AM 03/07/2024 3:17 PM * Full Code Date Activated Date Inactivated Comments 02/29/2024 9:49 AM 03/02/2024 11:32 AM Care Teams Occupational Health Nursing Director Relationship Specialty Start Date End Date Andre Gil DO [address] [facility] [address] [address] [place] [id number] PCP - General FAMILY PRACTICE 02/28/24
--- OUTSIDE RECORDS SUMMARY | 2025-02-04 10:45 | XMS_ITS | Clinical Summary ---
Author Organization [facility] [employer] Address [address] [place] [address] Care Team Providers Care Red Hat Open Stack Administrator Name Role Phone Chinmay Avelar MD Primary Care Provider [phone] Source Comments [facility] [employer],non-owned Affiliates and Associated Physician Practices is amultiple site organization consisting of ambulatory clinics and hospital sitesin [place], [place], [place] and [place]. This disclosure is being madepursuant to the Care Everywhere program and may not contain all information available regarding this patient. Last updated 18.[facility] [employer] Allergies Active Allergy Reactions Criticality Noted Date Comments Penicillins 06/08/2013 rash Medications * Be aware that medications may not be up to date on this document. Alwaysverify current medications with the patient. aspirin (ASPIRIN) 81 MG chew tablet Take 1 (one) tablet by mouth once daily 02/09/20 22 Active apixaban (ELIQUIS) 5 MG tablet Take 1 (one) tablet by mouth every 12 hours 60 tablet 4 02/11/20 22 Active metFORMIN ER 24hr (GLUCOPHAGE XR) 500 MG tablet Take 1 (one) tablet by mouth 2 times daily with morning and evening meal 02/09/20 22 Active atorvastatin (LIPITOR) 40 MG tablet Take 1 (one) tablet by mouth at bedtime 30 tablet 11 02/08/20 22 Active buPROPion XL 24hr (Wellbutrin-XL) 300 MG tablet Take 1 (one) tablet by mouth every morning Active dapagliflozin propanediol (Farxiga) 10 MG tablet Take 1 (one) tablet by mouth every morning Active ondansetron, disintegrating, (Zofran ODT) 4 MG tablet Take 1 (one) tablet by mouth every 8 hours as needed for Nausea/Vomiting 11/18/19 24 Active Ozempic, 1 MG/DOSE, 4 MG/3ML pen Inject 1 (one) mg subcutaneously every 7 days 10/06/19 24 Active traZODone (Desyrel) 100 MG tablet Take 2 (two) tablets by mouth at bedtime 01/04/20 24 Active metoprolol tartrate IR (Lopressor) 25 MG tablet Take 1 (one) tablet by mouth 2 times daily 12/27/19 24 Active meclizine (Antivert) 25 MG tablet Take 1 (one) tablet by mouth 3 times daily as needed for Dizziness 15 tablet 01/20/20 24 Active losartan-hydroC HLOROthiazide (Hyzaar) 100-12.5 MG tablet Take 1 (one) tablet by mouth once daily 01/27/20 24 Active Active Problems Problem Noted Date [...] Assessment & Plan: The patient has a SPS0TR4-BJDa score of 3 (annualized risk of stroke [...] at Not on file 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 Right: Hip 03/21/2023 [id number] / / [id number] [id number] Selftap Lo Prof Ti 6.5 X 25mm Implanted:Qty: 1 on 06/11/2013 by Charles Kang MD at [facility] Right: Hip 04/20/2023 [id number] / / [id number] Scrw Selftap Lo Prof Ti 6.5 X 25mm Implanted:Qty: 1 on 06/11/2013 by Charles Kang MD at [facility] Right: Hip 04/20/2023 [id number] / / [id number] Ringloc Acetabular Liner 36mm/Hi-Wall, Size 24 Implanted:Qty: 1 on 06/11/2013 by Charles Kang MD at [facility] Right: Hip Biomet Inc 04/19/2018 [id number] / / [id number] Taperloc Femoral Stem 12 X 144mm High Offset Type 1 Implanted:Qty: 1 on 06/11/2013 by Charles Kang MD at [facility] Right: Hip Biomet Inc 01/17/2022 [id number] / / [id number] Biolox Taper Adapter Plus 6 Neck Implanted:Qty: 1 on 06/11/2013 by Charles Kang MD at [facility] Right: Hip Biomet Inc 03/19/2022 [id number] / / [id number] Biolox Delta Option Ceramic Head 36mm Implanted:Qty: 1 on 06/11/2013 by Charles Kang MD at [facility] Right: Hip Biomet Inc 05/19/2023 [id number] / / [id number] Procedures Procedure Name Priority Date/Time Associated Diagnosis Comments BASIC METABOLIC PANEL (CALCIUM TOTAL) AM Draw 01/19/2024 1:25 AM CDT HEMOGLOBIN A1C Add on 02/03/2022 9:25 PM CDT from Last 3 Months or Most Recently Relevant to Health Maintenance Results * (ABNORMAL) BASIC METABOLIC PANEL (CALCIUM TOTAL) (01/19/2024 1:25 AM CDT) [facility] Glucose 85 70 - 105 mg/dL [...] - 10.4 mg/dL 01/19/2024 1:55 AM CDT [facility] Anion Gap 10 6 - 16 mmol/L 01/19/2024 1:55 AM CDT [facility] BUN 19 7 - 26 mg/dL 01/19/2024 1:55 AM CDT [facility] Creatinine 1.52(H) 0.72 - 1.25 mg/dL 01/19/2024 1:55 AM CDT [facility] eGFR by CKD-EPI 49(L) >=90 mL/min/1.7 3 m2 01/19/2024 1:55 AM CDT [facility] Blood BLOOD SPECIMEN / Unknown Venipuncture / Unknown 01/19/2024 1:25 AM CDT 01/19/2024 1:29 AM CDT Sandra Borrero MD LAB - CHEMISTRY ORDERABLES Fi nal Result [facility] [address] [place] [id number] * (ABNORMAL) HEMOGLOBIN A1C (02/03/2022 9:25 PM CDT) Hemoglobin A1c 6.3(H) <5.7 % 02/04/2022 7:42 AM CDT [facility] Estimated Average Glucose 134 mg/dL 02/04/2022 7:42 AM CDT [facility] Blood BLOOD SPECIMEN / Unknown Venipuncture / Unknown 02/03/2022 9:25 PM CDT 02/03/2022 9:29 PM CDT Narrative [facility] - 02/04/2022 7:42 AM CDT [...] exceeds 5% in the specimen. The Renee Patternmaker assay for the measurement of HbA1c is a National Glycohemoglobin Standardization Program (NGSP) certified method. us Matt Mcqueen MD LAB - CHEMISTRY ORDERABLES Fin al Result [facility] [address] [place] [address] from Last 3 Months or Most Recently Relevant to Health Maintenance Insurance [facility] MEDICARE MEDICARE PB RM Report A Bad address: [address] [facility] [address] Updating the address to: [address] [facility] [address] [place] [address] Advance Directives * Full Code (Latest Code Status on File) Date Activated Date Inactivated Comments 01/16/2024 4:58 AM 01/20/2024 5:13 PM * Full Code Date Activated Date Inactivated Comments 02/04/2022 7:16 AM 02/07/2022 6:24 PM * FULL RESUSCITATION Date Activated Date Inactivated Comments 06/11/2013 10:00 AM 06/14/2013 4:00 PM Care Teams [employer] Open Stack Administrator Relationship Specialty Start Date End Date Chinmay Avelar MD [address] [place] [address] PCP - General Family Medicine 06/11/13
--- OUTSIDE RECORDS SUMMARY | 2025-02-04 10:45 | XMS_ITS | Referral Summary ---
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 I have therefore recommended that he remain anticoagulated for thromboprophylaxis. Persistent atrial fibrillati on with rapid ventricular response 11/01/2021 Overview (11/01/2021): Added automatically from request for surgery [id number] Assessment & Plan (03/26/2023 3:38 PM CDT): [...] with atrial fibrillation: a report of the [place] College of Cardiology/[place] Heart Association Task Force on Practice Guidelines and the Heart Rhythm Society. J Am Lien Cardiol 2014. 6.3. AF Catheter Ablation to Maintain Sinus Rhythm: Recommendations Class IIb AF catheter ablation may be considered prior to initiation of antiarrhythmic drug therapy with class I or III antiarrhythmic medication for symptomatic persistent AF, when a rhythm control strategy is desired. (Level of Evidence: C) Javier 06/15/2017 Social History Tobacco Use Types Packs/Day Years Used Date Smoking Tobacco: Never Smokeless Tobacco: Never Tobacco Cessation:Counseling Given: Not Answered Alcohol Use Standard Drinks/Week Comments Yes 0 (1 standard drink = 0.6 oz pur e alcohol) rarely [facility] Utilities Answer Date Recorded In the past [...] week 04/23/2024 How often do you attend chur ch or restorationism services? More than 4 times per year 04/23/2024 Do you belong to any clubs o r organizations such as mormon groups, unions, fraternal or athletic groups, or [...] time in the past 12 m [facility], were you homeless or living in a detention (including now)? No 04/23/2024 Personal Safety Answer Date Recorded Have you ever been in or are you currently in a harmful physical or emotional relationship or is someone making you feel afraid or unsafe? 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 Gender Identity Not on file Sexual Orientation [...] 10/06/2024 2:34 PM CDT Plan of Treatment Not on file Medical Devices Implanted Type Area Trade Show Coordinator Device Identifier Shelf Expiration Date Model / Serial / Lot Vascade Mvp 6-12fr Venous Closure [id number] - [id number] - [id number] Implanted:Qty: 1 on 12/05/2021 by Grant Patino MD at [facility] Right: Femoral [employer] Inc 10/03/2023 800-612C- 10U / [id number] / [id number] Vascade Mvp 6-12fr Venous Closure [id number] - [id number] - [id number] Implanted:Qty: 1 on 12/05/2021 by Grant Patino MD at [facility] Left: Femoral [employer] 10/03/2023 800-612C- 10U / [id number] 16B / [id number] [id number] [employer]iva Medical Inc Vascade 6/7fr Bioabsorbable Vascular System Compression Collagen [id number] - [id number] - [id number] Implanted:Qty: 1 on 12/05/2021 by Grant Patino MD at [facility] Right: Femoral [employer] Inc 07/09/2023 700-580I- 05U / [id number] / [id number] Renee Vascular System Closure Repair Femoral Artery Suture Mediated Perclose Prostyle 63779-80 - [id number] Implanted:Qty: 1 on 04/22/2024 by Manolo Sinclair MD at [facility] 01/17/2026 [id number] / / [id number] Renee Vascular System Closure Repair Femoral Artery Suture Mediated Perclose Prostyle 78169-54 - [id number] Implanted:Qty: 1 on 04/22/2024 by Manolo Sinclair MD at [facility] 01/17/2026 49834-06 / / [id number] [place] [facility] Percutaneous Transcatheter Amplatzer Amulet 22mm 2-[id number] - [id number] Implanted:Qty: 1 on 04/22/2024 by Manolo Sinclair MD at [facility] 11/17/2028 9-ACP2-00 7-022 / / [id number] Procedures Procedure Name Priority Date/Time Associated Diagnosis [...] Capillary blood 10/06/2024 2 :26 PM CDT us Manolo Sinclair MD POINT OF CARE TEST [...] 4:11 AM CDT 04/23/2024 5:04 AM CDT us Manolo Sinclair MD LAB BLOOD ORDERABLES Final Resul t [facility] [address] [place] [address] * Hemoglobin A1c (04/09/2024 9:56 AM CDT) Hgb A1C 5.1 4.0 - 5.6 % Estimated Average Glucose 100 mg/dL [facility] Comment: The ADA recommends reporting an estimated Average Glucose (eAG) with all Hemoglobin A1c results using the equation derived from a study of 507 normal and diabetic adults. Minority populations were underrepresented and children were not included. (Diabetes Care 31:7485-7970, 2008). The eAG is not equivalent to a fasting glucose. Blood 04/09/2024 9:56 AM CDT 04/09/2024 9:59 AM CDT us Manolo Sinclair MD LAB [place]LOOD [place] [address] [address] [place] [address] from Last 3 Months or Most Recently Relevant to Health Maintenance Insurance [employer] [place] [employer] [place] MEDICARE [facility] Advance Directives For more information, please contact: [phone] * Full Code (Latest Code Status on File) Date Activated Date Inactivated Comments 12/07/2021 10:53 PM 12/12/2021 4:52 PM Care Teams Nca Certified Concierge Relationship Specialty Start Date End Date Andre Gil DO [address] [address] PCP - General Family Medicine 02/20/22 Grant Patino MD [address] [address] Consulting Physician Cardiology 12/12/21
--- OUTSIDE RECORDS SUMMARY | 2025-02-04 10:45 | XMS_ITS | Encounter Summary ---
Author Organization [facility] Healthcare Address [address] [place] [address] Care Team Providers Care Assistant Site Manager Name Role Phone Chinmay Avelar MD Primary Care Provider [phone] Grant Patino MD Unavailable [phone] Andre Gil DO Primary Care Provider [phone] Encounter Details Date Type Department Care Team (Late st Contact Info) Description 12/14/2021 [facility] Post Discharge Follow up phone call [facility] [address] [place] [phone] Crystal Cifuentes RPh Social History Tobacco Use Types Packs/Day Years Used Date Smoking Tobacco: Never Smokeless Tobacco: Never Alcohol Use Standard Drinks/Week Comments Yes 0 (1 standard drink = 0.6 oz pur e alcohol) rarely Social Connection and Isolat ion Panel [NHANES] Answer Date Recorded In a typical week, how many times do you talk on the phone with family, friends, or neighbors? More than three times a week 12/10/2021 How often do you get togethe r with friends or relatives? More than three times a week 12/10/2021 How often do you attend chur ch or roman catholic services? Never 12/10/2021 Active Member of Clubs or Organizations Not on f ile 12/10/2021 How often do you attend meet ings of the clubs or organizations you belong to? Never 12/10/2021 Are you , , di vorced, , never , or living with a partner? 12/10/2021 AUDIT-C Answer Date Recorded Q1: How often do you have a drink containing alcohol? Never 12/05/2021 Q2: How many drinks containi ng alcohol do you have on a typical day when you are drinking? Patient does not drink Q3: How often do you have si x or more drinks on one occasion? Never 12/05/2021 Overall Financial Resource Strain (CARDIA) Answe r Date Recorded How hard is it for you to pa y for the very basics like food, housing, medical care, and heating? Not hard at all 12/10/2021 Hunger Vital Sign Answer Date Recorded Within the past 12 months, y ou worried that your food would run out before you got the money to buy more. Never true 12/11/19 22 Within the past 12 months, t he food you bought just didn't last and you didn't have money to get more. Never true 12/10/2021 PRAPARE - Transportation Answer Date Re corded In the past 12 months, has l ack of transportation kept you from medical appointments or from getting medications? No 11/19 In the past 12 months, has l ack of transportation kept you from meetings, work, or from getting things needed for daily living? 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 Gender Identity Not on file Sexual Orientation Not on file documented as of this encounter Plan of Treatment Not on file documented as of this encounter Visit Diagnoses Not on filedocumented in this encounter Care Teams Assistant Site Manager Relationship Specialty Start Date End Date Chinmay Avelar MD [address] [address] PCP - General Family Medicine 07/07/20 02/19/22 Andre Gil DO [address] [facility] [address] [address] PCP - General Family Medicine 02/20/22 Grant Patino MD [address] [facility] [address] [address] Consulting Physician Cardiology 12/12/21 documented as of this encounter
[2025-02-04 18:06] LABS: Hematocrit 49.8 % (42.0-52.0); Hemoglobin 16.0 g/dL (14.0-18.0); Immature Granulocyte Percent A 0.3 % (0-0.5); Lymphocytes Absolute Auto 1.35 K/mm3 (0.9-3.2); Mean Corpuscular HGB Conc 32.1 g/dl (32-36); Mean Corpuscular Hemoglobin 28.4 pg (26-34); Mean Corpuscular Volume 88.3 fl (80-100); Nucleated Red Blood Cells Absolute Auto 0.000 K/mm3 (0.0-0.012); Nucleated Red Blood Cells Perc 0.0 % (0.0-0.2); Platelet Count Result 354 k/mm3 (150-375); Red Blood Count 5.64 M/mm3 (4.6-6.20); White Blood Count 8.8 K/mm3 (4.5-10.0)
[2025-02-04 18:24] LABS: Alanine Aminotransferase 33 U/L (6-50); Albumin Level 4.1 g/dL (3.5-5.1); Alkaline Phosphatase 144 U/L (38-126); Anion Gap 12 mmol/L (4-12); Aspartate Amino Transferase 75 U/L (17-59); Bilirubin,Total 0.9 mg/dL (0.2-1.3); Blood Urea Nitrogen 19 mg/dL (9-20); Calcium 9.3 mg/dL (8.4-10.2); Carbon Dioxide 24 mmol/L (22-30); Chloride 104 mmol/L (98-107); Cholesterol 111 mg/dL (0-200); Estimated Glomerular Filt Rate 44; Glucose 125 mg/dL (65-110); HDL Direct 35 mg/dL; Potassium 4.2 mmol/L (3.4-5.0); Sodium 140 mmol/L (137-145); Total Protein 7.6 g/dL (6.3-8.2); Triglycerides 149 mg/dL (<150)
[2025-02-04 18:59] LABS: Thyroid Stimulating Hormone 0.954 uIU/mL (0.465-4.680)
== END 2025-02-04 10:43 | disposition home or self-care (01) ==
LOC: ANHGOSHLAB 10:43
PROVIDERS: PCP Internal Medicine; Visit Provider Nurse Practitioner
DX: E78.5 Hyperlipidemia, unspecified (principal); I12.9 Hypertensive chronic kidney disease with stage 1 through stage 4 chronic kidney disease, or unspecified chronic kidney disease; N18.9 Chronic kidney disease, unspecified
CPT/HCPCS: 36415; 80053; 80061; 84443; 85025

== ENCOUNTER 2025-02-24 08:10 | Outpatient (CLI) | payer BC, SELFPAY ==
--- OUTSIDE RECORDS SUMMARY | 2025-02-24 08:13 | XMS_ITS | Encounter Summary ---
Author Organization [facility] Healthcare Address [address] [place] [address] Care Team Providers Care Director Pharmacology Name Role Phone Chinmay Avelar MD Primary Care Provider [phone] Grant Patino MD Unavailable [phone] Andre Gil DO Primary Care Provider [phone] Encounter Details Date Type Department Care Team (Late st Contact Info) Description 12/14/2021 [facility] Post Discharge Follow up phone call [facility] [address] [place] [phone] Crystal Cifuentes RPh Social History Tobacco Use [...] often do you attend chur ch or synagogue services? 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 Gender Identity Not on file Sexual Orientation Not on file documented as of this encounter Plan of Treatment Not on file documented as of this encounter Visit Diagnoses Not on filedocumented in this encounter Care Teams Director Pharmacology Relationship Specialty Start Date End Date Chinmay Avelar MD [address] [place] [address] PCP - General Family Medicine 07/07/20 02/19/22 Andre Gil DO [address] [facility] [address] [address] PCP - General Family Medicine 02/20/22 Grant Patino MD [address] [facility] [address] [address] Consulting Physician Cardiology 12/12/21 documented as of this encounter
--- OUTSIDE RECORDS SUMMARY | 2025-02-24 08:13 | XMS_ITS | Clinical Summary ---
Author Organization [facility] [address] Address [address] [place] [address] Care Team Providers Care Guide Tour Name Role Phone Grant Patino MD Unavailable [phone] Andre Gil DO Primary Care Provider [phone] Allergies Active Allergy Reactions Criticality Noted Date Comments Penicillins Rash Medium Medications metFORMIN XR (GLUCOPHAGE XR) 500 mg 24 hr tablet Take 1 tablet (500 mg total) by mouth 2 (two) times a day with meals 0 Active traZODone (DESYREL) 100 mg tablet Take 1 tablet (100 mg total) by mouth nightly 2 Active blood glucose diagnostic (OneTouch Verio test strips) strip 2 Active amLODIPine (NORVASC) 10 mg tablet Take 1 tablet (10 mg total) by mouth daily 30 tablet 11 4 Active losartan (COZAAR) 25 mg tablet Take [...] half pill Active clopidogreL (PLAVIX) 75 mg tablet TAKE 1 TABLET(75 MG) BY MOUTH DAILY 90 tablet 3 5 Active clopidogreL (PLAVIX) 75 mg tabletIndicatio ns:coronary artery disease Take 1 tablet (75 mg total) by mouth daily 30 tablet 11 4 025 Discontinued Active Problems Problem Noted Date Diagnosed Date [...] CDT): -remains compliant on Eliquis therapy, asymptomatic -VFS1MG9-TTMi is 5 -recommend continued therapy for thromboprophylaxis -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 I have therefore recommended that he remain anticoagulated for thromboprophylaxis. Persistent atrial fibrillati on with rapid ventricular response 11/01/2021 Overview (11/01/2021): Added automatically from request for surgery [id number] Assessment & Plan (03/26/2023 3:38 PM CDT): [...] with atrial fibrillation: a report of the [place] [employer] Cardiology/[place] [employer] Association Task Force on Practice Guidelines [...] desired. (Level of Evidence: C) Javier 06/15/2017 Surgical History Surgery Date Site/Laterality Comments URETHRAL DILATION 02/19/2020 - 03/20/2020 has had many COLONOSCOPY UMBILICAL HERNIA REPAIR CARDIOVERSION x1 ABLATION cardiac JOINT REPLACEMENT Right GUZMAN Medical History Medical History Date Comments Atrial fibrillation (HCC) Diabetes mellitus (HCC) Sleep apnea Vertigo Stroke (HCC) x2 (01/28/2022 & 07/17/2022) right sided weakness, aphasia Hypertension CHF (congestive heart failure) (HCC) Type 2 diabetes mellitus Personal history of COVID-19 ear ly Mar [...] = 0.6 oz pur e alcohol) rarely [facility] Utilities Answer Date Recorded In the [...] week 04/23/2024 How often do you attend [facility] or faith services? More than 4 times per year 04/23/2024 Do you belong to any clubs o r organizations such as sikhism groups, unions, fraternal or athletic groups, or [...] time in the past 12 m [facility], were you homeless or living in a penitentiary (including now)? No 04/23/2024 Personal Safety Answer Date Recorded Have you ever been in or are you currently in a harmful physical or emotional relationship or is someone making you feel afraid or unsafe? 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 Gender Identity Not on file Sexual Orientation [...] history exists Medical Devices Implanted Type Area Digital Proofing And Platemaker Device Identifier Shelf Expiration Date Model / Serial / Lot Vascade Mvp 6-12fr Venous Closure [id number] - [id number] - [id number] Implanted:Qty: 1 on 12/05/2021 by Grant Patino MD at [facility] Collagen Right: Femoral [employer] Inc 10/03/2023 800-612C- 10U / [id number] [id number] / [id number] [id number] Vascade Mvp 6-12fr Venous Closure [id number] - [id number] - [id number] Implanted:Qty: 1 on 12/05/2021 by Grant Patino MD at [facility] Coll[employer] Left: Femoral [employer] 10/03/2023 800-612C- 10U / [id number] 16B / [id number] [id number] [employer] Inc Vascade 6/7fr Bioabsorbable Vascular System Compression Collagen [id number] - [id number] - [id number] Implanted:Qty: 1 on 12/05/2021 by Grant Patino MD at [facility] Collagen Right: Femoral [employer] Inc 07/09/2023 700-580I- 05U / [id number] / [id number] Renee Vascular System Closure Repair Femoral Artery Suture Mediated Perclose Prostyle 99491-12 - [id number] Implanted:Qty: 1 on 04/22/2024 by Manolo Sinclair MD at [facility] [employer] 01/17/2026 28926-98 / / [id number] Renee Vascular System Closure Repair Femoral Artery Suture Mediated Perclose Prostyle 32896-02 - [id number] Implanted:Qty: 1 on 04/22/2024 by Manolo Sinclair MD at [facility] 01/17/2026 37001-55 / / [id number] [employer] V[employer] Percutaneous Transcatheter Amplatzer Amulet 22mm [id number] - [id number] Implanted:Qty: 1 on 04/22/2024 by Manolo Sinclair MD at [facility] 11/17/2028 9-ACP2-00 7-022 / / [id number] Procedures Procedure Name Priority Date/Time Associated Diagnosis [...] BLOOD [place] [address] [address] Department [place] [address] * Hemoglobin A1c (04/09/2024 9:56 AM CDT) Hgb A1C 5.1 4.0 - 5.6 % Estimated Average Glucose 100 mg/dL [facility] Comment: The ADA recommends reporting an estimated Average Glucose (eAG) with all Hemoglobin A1c results using the equation derived from a study of 507 normal and diabetic adults. Minority populations were underrepresented and children were not included. (Diabetes Care 31:3469-4546, 2008). The eAG is not equivalent to a fasting glucose. Blood 04/09/2024 9:56 AM CDT 04/09/2024 9:59 AM CDT us Manolo Sinclair MD LAB [place]LO[place] [address] [address] [place] [address] from Last 3 Months or Most Recently Relevant to Health Maintenance Insurance [employer] [place] [employer] [place] MEDICARE [facility] Advance Directives For more information, please contact: [phone] * Full Code (Latest Code Status on File) Date Activated Date Inactivated Comments 12/07/2021 10:53 PM 12/12/2021 4:52 PM Care Teams Guide Tour Relationship Specialty Start Date End Date Andre Gil DO [address] [address] PCP - General Family Medicine 02/20/22 Grant Patino MD [address] [address] Consulting Physician Cardiology 12/12/21
--- OUTSIDE RECORDS SUMMARY | 2025-02-24 08:13 | XMS_ITS | Clinical Summary ---
Author Organization [facility] Address [address] [place] [address] Care Team Providers Care Contract Lead Name Role Phone Chinmay Avelar MD Primary Care Provider [phone] Source Comments [facility],non-owned Affiliates and Associated Physician Practices is amultiple site organization consisting of ambulatory clinics and hospital sitesin [place], [place], [place] and [place]. This disclosure is being madepursuant to the Care Everywhere program and may not contain all information available regarding this patient. 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 Gender Identity Not on file Sexual Orientation [...] this topic Medical Devices Implanted Type Area Physical Therapist Clinic Director Device Identifier Shelf Expiration Date Model / Serial / Lot Biomet Acetabular Shell Ring Loc Size 24 Implanted:Qty: 1 on 06/11/2013 by Charles Kang MD at [facility] Right: Hip 03/21/2023 [id number] / / [id number] Scrw Selftap Lo Prof Ti 6.5 X 25mm Implanted:Qty: 1 on 06/11/2013 by Charles Kang MD at [facility] Right: Hip 04/20/2023 [id number] / / [id number] Scrw Selftap Lo Prof Ti 6.5 X 25mm Implanted:Qty: 1 on 06/11/2013 by Charles Kang MD at [facility] Right: Hip 04/20/2023 [id number] / / [id number] Ringloc Acetabular Liner 36mm/Hi-Wall, Size 24 Implanted:Qty: 1 on 06/11/2013 by Charles Kang MD at [facility] Right: Hip Biomet Inc 04/19/2018 [id number] / / [id number] Taperloc Femoral Stem 12 X 144mm High Offset Type 1 Implanted:Qty: 1 on 06/11/2013 by Charles Kang MD at [facility] Right: Hip Biomet Inc 01/17/2022 [id number] / / [id number] Biolox Taper Adapter Plus 6 Neck Implanted:Qty: 1 on 06/11/2013 by Charles Kang MD at [facility] Right: Hip Biomet Inc 03/19/2022 [id number] / / [id number] Biolox Delta Option Ceramic Head 36mm Implanted:Qty: 1 on 06/11/2013 by Charles Kang MD at [facility] Right: Hip Biomet Inc 05/19/2023 650-1057 / / [id number] Procedures Procedure Name Priority Date/Time Associated Diagnosis Comments BASIC METABOLIC PANEL (CALCIUM TOTAL) AM Draw 01/19/2024 1:25 AM CDT HEMOGLOBIN A1C Add on 02/03/2022 9:25 PM CDT from Last 3 Months or Most Recently Relevant to Health Maintenance Results * (ABNORMAL) BASIC METABOLIC PANEL (CALCIUM TOTAL) (01/19/2024 1:25 AM CDT) [facility] Glucose 85 70 - 105 mg/dL 01/19/2024 [...] - 10.4 mg/dL 01/19/2024 1:55 AM CDT [facility] Anion Gap 10 6 - 16 mmol/L 01/19/2024 1:55 AM CDT [facility] BUN 19 7 - 26 mg/dL 01/19/2024 1:55 AM CDT [facility] Creatinine 1.52(H) 0.72 - 1.25 mg/dL 01/19/2024 1:55 AM CDT [facility] eGFR by CKD-EPI 49(L) >=90 mL/min/1.7 3 m2 01/19/2024 1:55 AM CDT [facility] Blood BLOOD SPECIMEN / Unknown Venipuncture / Unknown 01/19/2024 1:25 AM CDT 01/19/2024 1:29 AM CDT Sandra Borrero MD LAB - CHEMISTRY ORDERABLES Fi nal Result [facility] [address] [place] [id number] * (ABNORMAL) HEMOGLOBIN A1C (02/03/2022 9:25 PM CDT) Hemoglobin A1c 6.3(H) <5.7 % 02/04/2022 7:42 AM CDT [facility] Estimated Average Glucose 134 mg/dL 02/04/2022 7:42 AM CDT [facility] Blood BLOOD SPECIMEN / Unknown Venipuncture / Unknown 02/03/2022 9:25 PM CDT 02/03/2022 9:29 PM CDT Narrative [facility] - 02/04/2022 7:42 AM CDT [...] exceeds 5% in the specimen. The Renee Box Toe Stitcher assay for the measurement of HbA1c is a National Glycohemoglobin Standardization Program (NGSP) certified method. us Matt Mcqueen MD LAB - CHEMISTRY ORDERABLES Fin al Result [facility] [address] [place] [address] from Last 3 Months or Most Recently Relevant to Health Maintenance Insurance [facility] MEDICARE MEDICARE PB RM Report A Bad address: [address] [facility] [address] Updating the address to: [address] [facility] [address] [place] [address] Advance Directives * Full Code (Latest Code Status on File) Date Activated Date Inactivated Comments 01/16/2024 4:58 AM 01/20/2024 5:13 PM * Full Code Date Activated Date Inactivated Comments 02/04/2022 7:16 AM 02/07/2022 6:24 PM * FULL RESUSCITATION Date Activated Date Inactivated Comments 06/11/2013 10:00 AM 06/14/2013 4:00 PM Care Teams Contract Lead Relationship Specialty Start Date End Date Chinmay Avelar MD [address] [place] [address] PCP - General Family Medicine 06/11/13
[2025-02-24 13:16] LABS: Alanine Aminotransferase 29 U/L (6-50); Albumin Level 3.7 g/dL (3.5-5.1); Alkaline Phosphatase 109 U/L (38-126); Aspartate Amino Transferase 51 U/L (17-59); Bilirubin,Total 0.8 mg/dL (0.2-1.3); Total Protein 7.4 g/dL (6.3-8.2)
== END 2025-02-24 08:11 | disposition home or self-care (01) ==
LOC: ANHGOSHLAB 08:11
PROVIDERS: PCP Internal Medicine; Visit Provider Nurse Practitioner
DX: R74.8 Abnormal levels of other serum enzymes (principal)
CPT/HCPCS: 36415; 80076

== ENCOUNTER 2025-03-04 12:40 | Outpatient (CLI) | payer BC, SELFPAY ==
--- OUTSIDE RECORDS SUMMARY | 2025-03-04 12:42 | XMS_ITS | Clinical Summary ---
Author Organization [facility] Address [address] [place] [address] Care Team Providers Care Labor Training Manager Name Role Phone Chinmay Avelar MD Primary Care Provider [phone] Source Comments [facility],non-owned Affiliates and Associated Physician Practices is amultiple site organization consisting of ambulatory clinics and hospital sitesin [place], [place] and [place]. This disclosure is being madepursuant to the Care Everywhere program and may not contain all information available regarding this patient. 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 Gender Identity Not on file Sexual Orientation [...] this topic Medical Devices Implanted Type Area Body Welder Device Identifier Shelf Expiration Date Model / Serial / Lot Biomet Acetabular Shell Ring Loc Size 24 Implanted:Qty: 1 on 06/11/2013 by Charles Kang MD at [facility] Right: Hip 03/21/2023 [id number] / / [id number] Scrw Selftap Lo Prof Ti 6.5 X 25mm Implanted:Qty: 1 on 06/11/2013 by Charles Kang MD at [facility] Right: Hip 04/20/2023 [id number] / / [id number] Scrw Selftap Lo Prof Ti 6.5 X 25mm Implanted:Qty: 1 on 06/11/2013 by Charles Kang MD at [facility] Right: Hip 04/20/2023 [id number] / / [id number] Ringloc Acetabular Liner 36mm/Hi-Wall, Size 24 Implanted:Qty: 1 on 06/11/2013 by Charles Kang MD at [facility] Right: Hip Bi[employer] Inc 04/19/2018 [id number] / / [id number] Taperloc Femoral Stem 12 X 144mm High Offset Type 1 Implanted:Qty: 1 on 06/11/2013 by Charles Kang MD at [facility] Right: Hip [employer] Inc 01/17/2022 [id number] / / [id number] Biolox Taper Adapter Plus 6 Neck Implanted:Qty: 1 on 06/11/2013 by Charles Kang MD at [facility] Right: Hip [employer] Inc 03/19/2022 650-1068 / / [id number] Biolox Delta Option Ceramic Head 36mm Implanted:Qty: 1 on 06/11/2013 by Charles Kang MD at [facility] Right: Hip [employer] Inc 05/19/2023 650-1057 / / [id number] Procedures Procedure Name Priority Date/Time Associated Diagnosis Comments BASIC METABOLIC PANEL (CALCIUM TOTAL) AM Draw 01/19/2024 1:25 AM CDT HEMOGLOBIN A1C Add on 02/03/2022 9:25 PM CDT from Last 3 Months or Most Recently Relevant to Health Maintenance Results * (ABNORMAL) BASIC METABOLIC PANEL (CALCIUM TOTAL) (01/19/2024 1:25 AM CDT) [facility] Glucose 85 70 - 105 mg/dL 01/19/2024 [...] - 10.4 mg/dL 01/19/2024 1:55 AM CDT [facility] Anion Gap 10 6 - 16 mmol/L 01/19/2024 1:55 AM CDT [facility] BUN 19 7 - 26 mg/dL 01/19/2024 1:55 AM CDT [facility] Creatinine 1.52(H) 0.72 - 1.25 mg/dL 01/19/2024 1:55 AM CDT [facility] eGFR by CKD-EPI 49(L) >=90 mL/min/1.7 3 m2 01/19/2024 1:55 AM CDT [facility] Blood BLOOD SPECIMEN / Unknown Venipuncture / Unknown 01/19/2024 1:25 AM CDT 01/19/2024 1:29 AM CDT Sandra Borrero MD LAB - CHEMISTRY ORDERABLES Fi nal Result [facility] [address] [place] [id number] * (ABNORMAL) HEMOGLOBIN A1C (02/03/2022 9:25 PM CDT) Hemoglobin A1c 6.3(H) <5.7 % 02/04/2022 7:42 AM CDT [facility] Estimated Average Glucose 134 mg/dL 02/04/2022 7:42 AM CDT [facility] Blood BLOOD SPECIMEN / Unknown Venipuncture / Unknown 02/03/2022 9:25 PM CDT 02/03/2022 9:29 PM CDT Narrative [facility] - 02/04/2022 7:42 AM CDT [...] exceeds 5% in the specimen. The Renee Dish Maker assay for the measurement of HbA1c is a National Glycohemoglobin Standardization Program (NGSP) certified method. us Matt Mcqueen MD LAB - CHEMISTRY ORDERABLES Fin al Result [facility] [address] [place] [address] from Last 3 Months or Most Recently Relevant to Health Maintenance Insurance [facility] MEDICARE MEDICARE PB RM Report A Bad address: [address] [facility] [address] Updating the address to: [address] [facility] [address] [place] [address] Advance Directives * Full Code (Latest Code Status on File) Date Activated Date Inactivated Comments 01/16/2024 4:58 AM 01/20/2024 5:13 PM * Full Code Date Activated Date Inactivated Comments 02/04/2022 7:16 AM 02/07/2022 6:24 PM * FULL RESUSCITATION Date Activated Date Inactivated Comments 06/11/2013 10:00 AM 06/14/2013 4:00 PM Care Teams Labor Training Manager Relationship Specialty Start Date End Date Chinmay Avelar MD [address] [place] [address] PCP - General Family Medicine 06/11/13
--- OUTSIDE RECORDS SUMMARY | 2025-03-04 12:42 | XMS_ITS | Encounter Summary ---
Author Organization [facility] Address [address] [place] [address] Care Team Providers Care Marking Stitcher Name Role Phone Chinmay Avealr MD Primary Care Provider [phone] Grant Patino MD Unavailable [phone] Andre Gil DO Primary Care Provider [phone] Encounter Details Date Type Department Care Team (Late st Contact Info) Description 12/14/2021 [facility] Post Discharge Follow up phone call [facility] [address] [place] [phone] Crystal Cifuentes RPh Social History Tobacco Use Types Packs/Day Years Used Date Smoking Tobacco: Never Smokeless Tobacco: Never Alcohol Use Standard Drinks/Week Comments Yes 0 (1 standard drink = 0.6 oz pur e alcohol) rarely Social Connection and Isolation Panel Answer Date Recorded In a typical week, how many times do you talk on the phone with family, friends, or neighbors? More than three times a week 12/10/2021 How often do you get togethe r with friends or relatives? More than three times a week 12/10/2021 How often do you attend chur ch or yarsanism services? 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 Gender Identity Not on file Sexual Orientation Not on file documented as of this encounter Plan of Treatment Not on file documented as of this encounter Visit Diagnoses Not on filedocumented in this encounter Care Teams Marking Stitcher Relationship Specialty Start Date End Date Chinmay Avelar MD [address] [place] [address] PCP - General Family Medicine 07/07/20 02/19/22 Andre Gil DO [address] [facility] [address] [place] [address] PCP - General Family Medicine 02/20/22 Grant Patino MD [address] [facility] [address] [place] [address] Consulting Physician Cardiology 12/12/21 documented as of this encounter
--- OUTSIDE RECORDS SUMMARY | 2025-03-04 12:43 | XMS_ITS | Clinical Summary ---
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 I have therefore recommended that he remain anticoagulated for thromboprophylaxis. Persistent atrial fibrillati on with rapid ventricular response 11/01/2021 Overview (11/01/2021): Added automatically from request for surgery [id number] Assessment & Plan (03/26/2023 3:38 PM CDT): [...] with atrial fibrillation: a report of the [place] College of Cardiology/Nauruan Heart Association Task Force on Practice Guidelines [...] = 0.6 oz pur e alcohol) rarely [facility] Utilities Answer Date Recorded In the past 12 months has th [employer] electric, gas, oil, or water company threatened to shut off services in your home? No 04/23/2024 Social Connection and Isolation Panel Answer Date Recorded In a typical week, how many times do you talk on the phone with family, friends, or neighbors? Three times a week 04/23/2024 How often do you get togethe r with friends or relatives? Once a week 04/23/2024 How often do you attend [facility] or uatsdin services? More than 4 times per year 04/23/2024 Do you belong to any clubs o r organizations such as yarsani groups, unions, fraternal or athletic groups, or [...] any time in the past 12 m [facility], were you homeless or living in a senior care (including now)? No 04/23/2024 Personal Safety Answer Date Recorded Have you ever been in or are you currently in a harmful physical or emotional relationship or is someone making you feel afraid or unsafe? 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 Gender Identity Not on file Sexual Orientation [...] history exists Medical Devices Implanted Type Area Fuel Cell Technician Device Identifier Shelf Expiration Date Model / Serial / Lot Vascade Mvp 6-12fr Venous Closure [id number] - [id number] - [id number] Implanted:Qty: 1 on 12/05/2021 by Grant Patino MD at [facility] Collagen Right: Femoral [employer] 10/03/2023 800-612C- 10U / [id number] 16B / [id number] 16B Vascade Mvp 6-12fr Venous Closure [id number] - [id number] - [id number] Implanted:Qty: 1 on 12/05/2021 by Grant Patino MD at [facility]agen Left: Femoral [employer] 10/03/2023 800-612C- 10U / [id number] 16B / [id number] 16B [employer] Vascade 6/7fr Bioabsorbable Vascular System Compression Collagen [id number] - [id number] - [id number] Implanted:Qty: 1 on 12/05/2021 by Grant Patino MD at [facility] Right: Femoral [employer] 07/09/2023 700-580I- 05U / [id number] 06A / [id number] Renee Vascular System Closure Repair Femoral Artery Suture Mediated Perclose Prostyle 66364-66 - [id number] Implanted:Qty: 1 on 04/22/2024 by Manolo Sinclair MD at [facility] [employer] 01/17/2026 32135-74 / / [id number] Renee Vascular System Closure Repair Femoral Artery Suture Mediated Perclose Prostyle 09877-62 - [id number] Implanted:Qty: 1 on 04/22/2024 by Manolo Sinclair MD at [facility] Vascular 01/17/2026 94976-31 / / [id number] Renee Vascular Percutaneous Transcatheter Amplatzer Amulet 22mm 5-Qek3-458-022 - [id number] Implanted:Qty: 1 on 04/22/2024 by Manolo Sinclair MD at [facility] 11/17/2028 9-ACP2-00 7-022 / / [id number] Procedures Procedure Name Priority Date/Time Associated Diagnosis [...] BLOOD [place] [address] [address] [place] [address] * Hemoglobin A1c (04/09/2024 9:56 AM CDT) Hgb A1C 5.1 4.0 - 5.6 % Estimated Average Glucose 100 mg/dL [facility] Comment: The ADA recommends reporting an estimated Average Glucose (eAG) with all Hemoglobin A1c results using the equation derived from a study of 507 normal and diabetic adults. Minority populations were underrepresented and children were not included. (Diabetes Care 31:5784-3571, 2008). The eAG is not equivalent to a fasting glucose. Blood 04/09/2024 9:56 AM CDT 04/09/2024 9:59 AM CDT Manolo Sinclair MD LAB BLOOD ORDERABLES Final Resul t [place] [id number] [address] Department of Laboratories [place], [place] [id number] from Last 3 Months or Most Recently Relevant to Health Maintenance [place] [email or web address] [place] [email or web address] [place] [facility] Advance Directives For more information, please contact: [phone] * Full Code (Latest Code Status on File) Date Activated Date Inactivated Comments 12/07/2021 10:53 PM 12/12/2021 4:52 PM Care Teams Twister Hand Relationship Specialty Start Date End Date Andre Gil DO [address] [address] PCP - General Family Medicine 02/20/22 Grant Patino MD [address] [address] Consulting Physician Cardiology 12/12/21
[2025-03-04 19:01] LABS: Anion Gap 9 mmol/L (4-12); Blood Urea Nitrogen 41 mg/dL (9-20); Calcium 9.7 mg/dL (8.4-10.2); Carbon Dioxide 28 mmol/L (22-30); Chloride 101 mmol/L (98-107); Estimated Glomerular Filt Rate 37; Glucose 148 mg/dL (65-110); Potassium 4.4 mmol/L (3.4-5.0); Sodium 138 mmol/L (137-145)
== END 2025-03-04 12:41 | disposition home or self-care (01) ==
LOC: ANHGOSHLAB 12:41
PROVIDERS: PCP Family Medicine; Visit Provider Nurse Practitioner
DX: N18.9 Chronic kidney disease, unspecified (principal)
CPT/HCPCS: 36415; 80048

== ENCOUNTER 2025-03-09 11:31 | Outpatient (CLI) | payer BC, SELFPAY ==
--- OUTSIDE RECORDS SUMMARY | 2025-03-09 12:05 | XMS_ITS | Clinical Summary ---
Author Organization [facility] [address] Address [address] [place] [address] Care Team Providers Care Director Microbiology Name Role Phone Grant Patino MD Unavailable [phone] Andre Gil DO Primary Care Provider [phone] Allergies Active Allergy Reactions Criticality Noted Date [...] by mouth daily 30 tablet 11 02/19/2024 Active losartan (COZAAR) 25 mg tablet Take [...] MG) BY MOUTH DAILY 90 tablet 3 02/07/2025 Active Active Problems Problem Noted Date Diagnosed [...] CDT): -remains compliant on Eliquis therapy, asymptomatic -QLH6IW4-ALZl is 5 -recommend continued therapy for thromboprophylaxis -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 I have therefore recommended that he remain anticoagulated for thromboprophylaxis. Persistent atrial fibrillati on with rapid ventricular response 11/01/2021 Overview (11/01/2021): Added automatically from request for surgery [id number] Assessment & Plan (03/26/2023 3:38 PM CDT): [...] JE, Shaniqua ARNOLD, Amber PT, Phuc STEELE, Field OLIVEROS, Yonas KT, Vincent RL, Kedar WG, Taiwo PJ, Helene CM, Luisa CW. 2014 AHA/ACC/HRS guideline for the management of patients with atrial fibrillation: a report of the [place] College of Cardiology/[place] Heart Association Task Force on Practice Guidelines [...] = 0.6 oz pur e alcohol) rarely [facility] Utilities Answer Date Recorded In [...] week 04/23/2024 How often do you attend [facility] or evangelical services? More than 4 times per year 04/23/2024 Do you belong to any clubs o r organizations such as yazidi groups, unions, fraternal or athletic groups, or [...] any time in the past 12 m [facility], were you homeless or living in a prison (including now)? No 04/23/2024 Personal Safety Answer Date Recorded Have you ever been in or are you currently in a harmful physical or emotional relationship or is someone making you feel afraid or unsafe? 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 Gender Identity Not on file Sexual Orientation [...] history exists Medical Devices Implanted Type Area Obstetrical Anesthesiologist Device Identifier Shelf Expiration Date Model / Serial / Lot Vascade Mvp 6-12fr Venous Closure [id number] - [id number] - [id number] Implanted:Qty: 1 on 12/05/2021 by Grant Patino MD at [facility] Collagen Right: Femoral [employer] 10/03/2023 800-612C- 10U / [id number] 16B / [id number] 16B Vascade Mvp 6-12fr Venous Closure [id number] - [id number] - [id number] Implanted:Qty: 1 on 12/05/2021 by Grant Patino MD at [facility] Collagen Left: Femoral [employer] 10/03/2023 800-612C- 10U / [id number] 16B / [id number] [id number] [employer] Inc Vascade 6/7fr Bioabsorbable Vascular System Compression Collagen [id number] - [id number] - [id number] Implanted:Qty: 1 on 12/05/2021 by Grant Patino MD at [facility] Collagen Right: Femoral [employer] 07/09/2023 700-580I- 05U / [id number] 06A / [id number] Renee Vascular System Closure Repair Femoral Artery Suture Mediated Perclose Prostyle 86755-93 - [id number] Implanted:Qty: 1 on 04/22/2024 by Manolo Sinclair MD at [facility] R[employer]e Vascular 01/17/2026 87627-66 / / [id number] Renee Vascular System Closure Repair Femoral Artery Suture Mediated Perclose Prostyle 03237-74 - [id number] Implanted:Qty: 1 on 04/22/2024 by Manolo Sinclair MD at [facility] Vascular 01/17/2026 26832-59 / / [id number] Renee Vascular Percutaneous Transcatheter Amplatzer Amulet 22mm 4-Bgj8-061-022 - [id number] Implanted:Qty: 1 on 04/22/2024 by Manolo Sinclair MD at [facility] Vascular 11/17/2028 9-ACP2-00 7-022 / / [id number] Procedures Procedure Name Priority Date/Time Associated Diagnosis [...] BLOOD ORDER[place] [id number] [address] Department [place] [address] * Hemoglobin A1c (04/09/2024 9:56 AM CDT) Hgb A1C 5.1 4.0 - 5.6 % Estimated Average Glucose 100 mg/dL [facility] Comment: The ADA recommends reporting an estimated Average Glucose (eAG) with all Hemoglobin A1c results using the equation derived from a study of 507 normal and diabetic adults. Minority populations were underrepresented and children were not included. (Diabetes Care 31:1173-1050, 2008). The eAG is not equivalent to a fasting glucose. Blood 04/09/2024 9:56 AM CDT 04/09/2024 9:59 AM CDT Manolo Sinclair MD LAB [place] [address] [address] Department [place] [address] from Last 3 Months or Most Recently Relevant to Health Maintenance [place] [facility] [facility] Advance Directives For more information, please contact: [phone] * Full Code (Latest Code Status on File) Date Activated Date Inactivated Comments 12/07/2021 10:53 PM 12/12/2021 4:52 PM Care Teams Director Microbiology Relationship Specialty Start Date End Date Andre Gil DO [address] [address] PCP - General Family Medicine 02/20/22 Grant Patino MD [address] [address] Consulting Physician Cardiology 12/12/21
--- OUTSIDE RECORDS SUMMARY | 2025-03-09 12:05 | XMS_ITS | Encounter Summary ---
Author Organization [facility] Healthcare Address [address] [place] [address] Care Team Providers Care Nozzle Tender Name Role Phone Chinmay Avelar MD Primary Care Provider [phone] Grant Patino MD Unavailable [phone] Andre Gil DO Primary Care Provider [phone] Encounter Details Date Type Department Care Team (Late st Contact Info) Description 12/14/2021 [facility] Post Discharge Follow up phone call [facility] [address] [place] [phone] Crystal Cifuentes RPh Social History Tobacco Use [...] often do you attend chur ch or spiritism services? 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 Gender Identity Not on file Sexual Orientation Not on file documented as of this encounter Plan of Treatment Not on file documented as of this encounter Visit Diagnoses Not on filedocumented in this encounter Care Teams Nozzle Tender Relationship Specialty Start Date End Date Chinmay Avelar MD [address] [place] [address] PCP - General Family Medicine 07/07/20 02/19/22 Andre Gil DO [address] [facility] [address], [place] [address] PCP - General Family Medicine 02/20/22 Grant Patino MD [address] [facility] [address], [place] [address] Consulting Physician Cardiology 12/12/21 documented as of this encounter
--- OUTSIDE RECORDS SUMMARY | 2025-03-09 12:05 | XMS_ITS | Clinical Summary ---
Author Organization [facility] Address [address] [place] [address] Care Team Providers Care Motor Vehicle Licence Examiner Name Role Phone Chinmay Avelar MD Primary Care Provider [phone] Source Comments [facility],non-owned Affiliates and Associated Physician Practices is amultiple site organization consisting of ambulatory clinics and hospital sitesin [place], [place], [place] and [place]. This disclosure is being madepursuant to the Care Everywhere program and may not contain all information available regarding this patient. 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 Gender Identity Not on file Sexual Orientation [...] this topic Medical Devices Implanted Type Area Educational Director Device Identifier Shelf Expiration Date Model / Serial / Lot Biomet Acetabular Shell Ring Loc Size 24 Implanted:Qty: 1 on 06/11/2013 by Charles Kang MD at [facility] Right: Hip 03/21/2023 [id number] / / [id number] Scrw Selftap Lo Prof Ti 6.5 X 25mm Implanted:Qty: 1 on 06/11/2013 by Charles Kang MD at [facility] Right: Hip 04/20/2023 [id number] / / [id number] Scrw Selftap Lo Prof Ti 6.5 X 25mm Implanted:Qty: 1 on 06/11/2013 by Charles Kang MD at [facility] Right: Hip 04/20/2023 [id number] / / [id number] Ringloc Acetabular Liner 36mm/Hi-Wall, Size 24 Implanted:Qty: 1 on 06/11/2013 by Charles Kang MD at [facility] Right: Hip [employer] 04/19/2018 [id number] / / [id number] Taperloc Femoral Stem 12 X 144mm High Offset Type 1 Implanted:Qty: 1 on 06/11/2013 by Charles Kang MD at [facility] Right: Hip [employer] 01/17/2022 [id number] / / [id number] Biolox Taper Adapter Plus 6 Neck Implanted:Qty: 1 on 06/11/2013 by Charles Kang MD at [facility] Right: Hip [employer] 03/19/2022 [id number] / / [id number] Biolox Delta Option Ceramic Head 36mm Implanted:Qty: 1 on 06/11/2013 by Charles Kang MD at [facility] Right: Hip [employer] 05/19/2023 [id number] / / [id number] Procedures Procedure Name Priority Date/Time Associated Diagnosis Comments BASIC METABOLIC PANEL (CALCIUM TOTAL) AM Draw 01/19/2024 1:25 AM CDT HEMOGLOBIN A1C Add on 02/03/2022 9:25 PM CDT from Last 3 Months or Most Recently Relevant to Health Maintenance Results * (ABNORMAL) BASIC METABOLIC PANEL (CALCIUM TOTAL) (01/19/2024 1:25 AM CDT) [facility] Glucose 85 70 - 105 mg/dL 01/19/2024 [...] - 10.4 mg/dL 01/19/2024 1:55 AM CDT [facility] Anion Gap 10 6 - 16 mmol/L 01/19/2024 1:55 AM CDT [facility] BUN 19 7 - 26 mg/dL 01/19/2024 1:55 AM CDT [facility] Creatinine 1.52(H) 0.72 - 1.25 mg/dL 01/19/2024 1:55 AM CDT [facility] eGFR by CKD-EPI 49(L) >=90 mL/min/1.7 3 m2 01/19/2024 1:55 AM CDT [facility] Blood BLOOD SPECIMEN / Unknown Venipuncture / Unknown 01/19/2024 1:25 AM CDT 01/19/2024 1:29 AM CDT Sandra Borrero MD LAB - CHEMISTRY ORDERABLES Fi nal Result [facility] [address] [id number] * (ABNORMAL) HEMOGLOBIN A1C (02/03/2022 9:25 PM CDT) Hemoglobin A1c 6.3(H) <5.7 % 02/04/2022 7:42 AM CDT [facility] Estimated Average Glucose 134 mg/dL 02/04/2022 7:42 AM CDT [facility] Blood BLOOD SPECIMEN / Unknown Venipuncture / Unknown 02/03/2022 9:25 PM CDT 02/03/2022 9:29 PM CDT Narrative [facility] - 02/04/2022 7:42 AM CDT HbA1c [...] exceeds 5% in the specimen. The Renee Pattern Mechanic assay for the measurement of HbA1c is a National Glycohemoglobin Standardization Program (NGSP) certified method. us Matt Mcqueen MD LAB - CHEMISTRY ORDERABLES Fin al Result [facility] [address] [place] [address] from Last 3 Months or Most Recently Relevant to Health Maintenance Insurance [facility] MEDICARE PB RM Report A Bad address: [address] [facility] [address] Updating the address to: [address] [facility] [address] [place] [address] Advance Directives * Full Code (Latest Code Status on File) Date Activated Date Inactivated Comments 01/16/2024 4:58 AM 01/20/2024 5:13 PM * Full Code Date Activated Date Inactivated Comments 02/04/2022 7:16 AM 02/07/2022 6:24 PM * FULL RESUSCITATION Date Activated Date Inactivated Comments 06/11/2013 10:00 AM 06/14/2013 4:00 PM Care Teams Motor Vehicle Licence Examiner Relationship Specialty Start Date End Date Chinmay Avelar MD [address] [place] [address] PCP - General Family Medicine 06/11/13
--- OUTSIDE RECORDS SUMMARY | 2025-03-09 12:05 | XMS_ITS | Clinical Summary ---
Author Organization [facility] Address [address] [place] [address] Care Team Providers Care Separator Inserter Name Role Phone Andre Gil Primary Care Provider [phone] Allergies Active Allergy Reactions Criticality Noted Date [...] tablet by mouth daily. Indications: anticoagulation Active psyllium (METAMUCIL 4 IN 1 FIBER) [...] daily. 60 tablet 1 03/07/20 24 Active amLODIPine (NORVASC) 10 MG tabletIndication s:HTN Take 1 tablet by mouth daily. Indications: HTN 02/19/20 24 025 Active Problems Problem Noted Date Diagnosed Date Urethral stricture 03/02/2024 Physical deconditioning 03/02/2024 COVID-19 02/28/2024 Falls frequently 01/16/2024 Impairment of balance 01/16/2024 Weakness 01/16/2024 Morbid (severe) obesity due to excess calories 0 02/20/2022 CVA (cerebral vascular accident) ([facility]) 02/15/2022 Middle cerebral artery stenosis, left 02/04/2022 Right sided weakness 02/03/2022 Acute on chronic diastolic c ongestive heart failure ([facility]) 12/08/2021 Leukocytosis 12/08/2021 MELISSA on CPAP 12/08/2021 Pain and swelling of left lower leg 12/08/2021 Primary hypertension 12/08/2021 Type 2 diabetes mellitus wit hout complication, without long-term current use of insulin ([facility]) 12/08/2021 A-fib ([facility]) 12/05/2021 Anticoagulation management encounter 11/03/2021 Overview (03/02/2024): Last Assessment & Plan: -remains compliant on Eliquis therapy, asymptomatic -[id number]-JSTk is 5 -recommend continued therapy for thromboprophylaxis -history of cardioembolic stroke after stopping his anticoagulation post ablation Persistent atrial fibrillati on with rapid ventricular response ([facility]) 11/01/2021 Overview (03/02/2024): Added automatically from request for surgery [id number] Last Assessment & Plan: -symptomatic, persistent atrial fibrillation recurred despite cardioversion and beta-tracy therapy -status post radiofrequency catheter ablation with Dr. Patino -remains compliant on Eliquis and metoprolol therapy, asymptomatic -no medication changes were made at this visit -EKG upon my review today demonstrates sinus rhythm at 63 beats per minute -follow-up in 12 months for 12 lead EKG and clinic visits Encounters Date Type Department Care Team Description 03/01/2025 1:43 PM CDT - 03/01/2025 11:59 PM CDT Hospital Encounter [facility] [address] [place] [address] Pili Mayorga APRN Eddy, Sandi L, NURSE PRACTITIONER Balance Problem Discharge Disposition: Home or Self Care (Routine Discharge) 03/01/2025 Travel 02/25/2025 1:42 PM CDT - 02/25/2025 11:59 PM CDT Hospital Encounter [facility] [address] [place] [address] Pili Mayorga APRN Eddy, Sandi L, NURSE PRACTITIONER Balance Problem Discharge Disposition: Home or Self Care (Routine Discharge) 02/25/2025 Travel 02/23/2025 1:49 PM CDT - 02/23/2025 11:59 PM CDT Hospital Encounter [facility] [address] [place] [address] Charlie Melendez, TORT Pili Mayorga APRN Balance Problem Discharge Disposition: Home or Self Care (Routine Discharge) 02/23/2025 Travel from Last 3 Months Social History Tobacco Use Types Packs/Day Years [...] materials from doctor or pharmacy Never 04/08/2024 [facility] Utilities Answer Date Recorded In the past 12 months has th e [employer], [employer], oil, or water [employer] threatened to shut off services in your [...] any time in the past 12 m [facility], were you homeless or living in a group home (including now)? Patient declined 03/02/2024 Sex and [...] - PCV20 or PCV21) 07/19/2020 07/19/2015, 12/16/2013 COVID-19 Vaccine (3 - season) 2024 11/20/2020, 10/30/2020 Hemoglobin A1C 10/07/2024 04/09/2024, 01/18, 12/09/2021 DTaP, Tdap and Td Vaccines (2 - Td or Tdap) 11/16/2024 11/16/2014, 04/15/2006 Lipid Panel 10/06/2025 10/06/2024, 11/19, 02/04/2022, Additional history exists Meningococcal B Vaccine Aged Out No l onger eligible based on patient's age to complete this topic Meningococcal Vaccine Aged Out No gene eloy eligible based on patient's age to complete this topic RSV Immunizations Under 20 Months Aged Out No longer eligible based on patient's age to complete this topic Insurance [facility] MEDICARE Advance Directives * Full Code (Latest Code Status on File) Date Activated Date Inactivated Comments 03/13/2024 2:43 PM * Full Code Date Activated Date Inactivated Comments 03/02/2024 11:33 AM 03/07/2024 3:17 PM * Full Code Date Activated Date Inactivated Comments 02/29/2024 9:49 AM 03/02/2024 11:32 AM Care Teams Separator Inserter Relationship Specialty Start Date End Date Andre Gil DO [address] [facility] [address] [place] [address] PCP - General FAMILY PRACTICE 02/28/24
[2025-03-09 12:50] LABS: Anion Gap 8 mmol/L (4-12); Blood Urea Nitrogen 35 mg/dL (9-20); Calcium 9.3 mg/dL (8.4-10.2); Carbon Dioxide 28 mmol/L (22-30); Chloride 104 mmol/L (98-107); Estimated Glomerular Filt Rate 39; Glucose 143 mg/dL (65-110); Potassium 4.4 mmol/L (3.4-5.0); Sodium 140 mmol/L (137-145)
== END 2025-03-09 11:32 | disposition home or self-care (01) ==
LOC: ANHLAB 11:32
PROVIDERS: PCP Nurse Practitioner; Visit Provider Nurse Practitioner
DX: N18.9 Chronic kidney disease, unspecified (principal)
CPT/HCPCS: 36415; 80048

== ENCOUNTER 2025-05-02 10:29 | Outpatient (CLI) | payer BC, SELFPAY ==
--- NOTE | ~2025-05-02 | US_ITS ---
EXAMINATION: US renal BI DATE: 05/02/2025 10:59 INDICATION: Chronic kidney disease, stage IIIB. TECHNIQUE: Multiple ultrasound grayscale images of the kidneys were obtained. COMPARISON: None. FINDINGS: The right kidney measures 11.1 x 4.7 x 5.3 cm. The left kidney measures 11.2 x 3.7 x 4.6 cm. The kidneys demonstrate normal parenchymal echogenicity. There is no hydronephrosis. The bladder is normal. IMPRESSION: 1. Normal kidneys. No hydronephrosis. Reviewed, dictated and finalized at location E.
== END 2025-05-02 10:30 | disposition home or self-care (01) ==
LOC: GOSHIMG 10:29
PROVIDERS: PCP Nurse Practitioner; Visit Provider Internal Medicine Nephrology
DX: I12.9 Hypertensive chronic kidney disease with stage 1 through stage 4 chronic kidney disease, or unspecified chronic kidney disease (principal); N18.32 Chronic kidney disease, stage 3b; E11.22 Type 2 diabetes mellitus with diabetic chronic kidney disease
CPT/HCPCS: 76770

== ENCOUNTER 2025-05-02 10:58 | Outpatient (CLI) | payer BC, SELFPAY ==
--- OUTSIDE RECORDS SUMMARY | 2025-05-02 12:16 | XMS_ITS | Clinical Summary ---
Author Organization [facility] Address [address] [facility] [place] [address] Care Team Providers Care Natural Gas Plant Technician Name Role Phone Chinmay Avelar MD Primary Care Provider [phone] Source Comments [facility],non-owned Affiliates and Associated Physician Practices is amultiple site organization consisting of ambulatory clinics and hospital sitesin [place], [place], [place] and [place]. This disclosure is being madepursuant to the Care Everywhere program and may not contain all information available regarding this patient. 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 Gender Identity Not on file Sexual Orientation [...] 02/03/2022 DIABETES-HGB A1C 08/06/2022 02/03/2022, , 06/15/2017 DEPRESSION SCREENING 07/21/2024 DIABETES - URINE PROTEIN SCREENING 07/21/2024 DIABETES-SERUM CREATININE 01/18/20252023, 01/17/2024, 01/16/2024, Additional history exists COVID-19 VACCINE ( season) 2025 11/20/2020, 10/30/2020 INFLUENZA VACCINE (#1) 2025 05/12/2018 HEPATITIS B [...] this topic Medical Devices Implanted Type Area Flower Buncher Or Picker Device Identifier Shelf Expiration Date Model / Serial / Lot Biomet Acetabular Shell Ring Loc Size 24 Implanted:Qty: 1 on 06/11/2013 by Charles Kang MD at [facility] Right: Hip 03/21/2023 [id number] / / [id number] Scrw Selftap Lo Prof Ti 6.5 X 25mm Implanted:Qty: 1 on 06/11/2013 by Charles Kang MD at [facility] Right: Hip 04/20/2023 [id number] / / [id number] Scrw Selftap Lo Prof Ti 6.5 X 25mm Implanted:Qty: 1 on 06/11/2013 by Charles Kang MD at [facility] Right: Hip 04/20/2023 [id number] / / [id number] Ringloc Acetabular Liner 36mm/Hi-Wall, Size 24 Implanted:Qty: 1 on 06/11/2013 by Charles Kang MD at [facility] Right: Hip [employer] 04/19/2018 [id number] / / [id number] Taperloc Femoral Stem 12 X 144mm High Offset Type 1 Implanted:Qty: 1 on 06/11/2013 by Charles Kang MD at [facility] Right: Hip [employer] 01/17/2022 [id number] / / [id number] Biolox Taper Adapter Plus 6 Neck Implanted:Qty: 1 on 06/11/2013 by Charles Kang MD at [facility] Right: Hip [employer] 03/19/2022 [id number] / / [id number] Biolox Delta Option Ceramic Head 36mm Implanted:Qty: 1 on 06/11/2013 by Charles Kang MD at [facility] Right: Hip [employer] 05/19/2023 [id number] / / [id number] Procedures Procedure Name Priority Date/Time Associated Diagnosis Comments BASIC METABOLIC PANEL (CALCIUM TOTAL) AM Draw 01/19/2024 1:25 AM CDT HEMOGLOBIN A1C Add on 02/03/2022 9:25 PM CDT from Last 3 Months or Most Recently Relevant to Health Maintenance Results * (ABNORMAL) BASIC METABOLIC PANEL (CALCIUM TOTAL) (01/19/2024 1:25 AM CDT) [facility] Glucose 85 70 - 105 mg/dL 01/19/2024 [...] - 10.4 mg/dL 01/19/2024 1:55 AM CDT [facility] Anion Gap 10 6 - 16 mmol/L 01/19/2024 1:55 AM CDT [facility] BUN 19 7 - 26 mg/dL 01/19/2024 1:55 AM CDT [facility] Creatinine 1.52(H) 0.72 - 1.25 mg/dL 01/19/2024 1:55 AM CDT [facility] eGFR by CKD-EPI 49(L) >=90 mL/min/1.7 3 m2 01/19/2024 1:55 AM CDT [facility] Blood BLOOD SPECIMEN / Unknown Venipuncture / Unknown 01/19/2024 1:25 AM CDT 01/19/2024 1:29 AM CDT Sandra Borrero MD LAB - CHEMISTRY ORDERABLES Fi nal Result [facility] [address] [id number] * (ABNORMAL) HEMOGLOBIN A1C (02/03/2022 9:25 PM CDT) Hemoglobin A1c 6.3(H) <5.7 % 02/04/2022 7:42 AM CDT [facility] Estimated Average Glucose 134 mg/dL 02/04/2022 7:42 AM CDT [facility] Blood BLOOD SPECIMEN / Unknown Venipuncture / Unknown 02/03/2022 9:25 PM CDT 02/03/2022 9:29 PM CDT Narrative [facility] - 02/04/2022 7:42 AM CDT HbA1c [...] exceeds 5% in the specimen. The Renee Furnace Operator And Tender assay for the measurement of HbA1c is a National Glycohemoglobin Standardization Program (NGSP) certified method. us Matt Mcqueen MD LAB - CHEMISTRY ORDERABLES Fin al Result [facility] [address] [place] [address] from Last 3 Months or Most Recently Relevant to Health Maintenance Insurance [facility] MEDICARE MEDICARE PB RM Report A Bad address: [address] [facility] [address] Updating the address to: [address] [facility] [address] [place] [address] Advance Directives * Full Code (Latest Code Status on File) Date Activated Date Inactivated Comments 01/16/2024 4:58 AM 01/20/2024 5:13 PM * Full Code Date Activated Date Inactivated Comments 02/04/2022 7:16 AM 02/07/2022 6:24 PM * FULL RESUSCITATION Date Activated Date Inactivated Comments 06/11/2013 10:00 AM 06/14/2013 4:00 PM Care Teams Natural Gas Plant Technician Relationship Specialty Start Date End Date Chinmay Avelar MD [address] [place] [address] PCP - General Family Medicine 06/11/13
--- OUTSIDE RECORDS SUMMARY | 2025-05-02 12:16 | XMS_ITS | Encounter Summary ---
Author Organization [facility] Healthcare Address [address] [place] [address] Care Team Providers Care Fountain Pen Nibs Inspector Name Role Phone Chinmay Avelar MD Primary Care Provider Grant Patino MD Unavailable [phone] Andre Gil DO Primary Care Provider [phone] Encounter Details Date Type Department Care Team (Late st Contact Info) Description 12/14/2021 [facility] Post Discharge Follow up phone call [facility] [address] [place] [phone] Crystal Cifuentes RPh Social History Tobacco Use [...] often do you attend chur ch or church services? 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 Gender Identity Not on file Sexual Orientation Not on file documented as of this encounter Plan of Treatment Not on file documented as of this encounter Visit Diagnoses Not on filedocumented in this encounter Care Teams Fountain Pen Nibs Inspector Relationship Specialty Start Date End Date Chinmay Avelar MD [address] [place] [address] PCP - General Family Medicine 07/07/20 02/19/22 Andre Gil DO [address] [facility] [address] [address] PCP - General Family Medicine 02/20/22 Grant Patino MD [address] [facility] [address] [address] Consulting Physician Cardiology 12/12/21 documented as of this encounter
--- OUTSIDE RECORDS SUMMARY | 2025-05-02 12:16 | XMS_ITS | Clinical Summary ---
Author Organization [facility] Address [address] [place] [address] Care Team Providers Care Long Chain Beamer Name Role Phone Andre Gil Primary Care Provider Allergies Active Allergy Reactions Criticality Noted Date [...] chronic diastolic congestive heart fail ure 12/08/2021 Leukocytosis 12/08/2021 MELISSA on CPAP 12/08/2021 Pain and swelling of left lower leg 12/08/2021 Primary hypertension 12/08/2021 Type 2 diabetes mellitus wit hout complication, without long-term current use of insulin 12/08/2021 A-fib 12/05/2021 Anticoagulation management encounter 11/03/2021 Overview (03/02/2024): Last Assessment & Plan: -remains compliant on Eliquis therapy, asymptomatic -[id number] is 5 -recommend continued therapy for thromboprophylaxis -history of cardioembolic stroke after stopping his anticoagulation post ablation Persistent atrial fibrillati on with rapid ventricular response 11/01/2021 Overview (03/02/2024): Added automatically from request for surgery [id number] Last Assessment & Plan: -symptomatic, persistent atrial [...] - 03/01/2025 11:59 PM CDT Hospital Encounter [facility] [address] [place] [address] Pili Mayorga APRN Eddy, Sandi L, ADRIANA Balance Problem Discharge Disposition: Home or Self Care (Routine Discharge) 03/01/2025 Travel 02/25/2025 1:42 PM CDT - 02/25/2025 11:59 PM CDT Hospital Encounter [facility] [address] [place] [address] Pili Mayorga APRN Eddy, Sandi L, INTERNET MARKETING ANALYST Balance Problem Discharge Disposition: Home or Self Care (Routine Discharge) 02/25/2025 Travel 02/23/2025 1:49 PM CDT - 02/23/2025 11:59 PM CDT Hospital Encounter [facility] [address] [place] [address] Charlie Melendez, DPT Pili Mayorga APRN Balance Problem Discharge Disposition: [...] materials from doctor or pharmacy Never 04/08/2024 [facility] Utilities Answer Date Recorded In the past 12 months has th e [employer], gas, oil, or water [employer] threatened to shut off services in your [...] any time in the past 12 m [facility], were you homeless or living in a half-way (including now)? Patient declined 03/02/2024 Sex and [...] or PCV21) 07/19/2020 07/19/2015, 12/16/2013 Hemoglobin A1C 10/07/2024 04/09/2024, 01/18, 12/09/2021 DTaP, Tdap and Td Vaccines (2 - Td or Tdap) 11/16/2024 11/16/2014, 04/15/2006 COVID-19 Vaccine (3 - season) 2025 11/20/2020, 10/30/2020 Influenza Adult (#1) 2025 05/12/2018, 05/06/2017, 04/30/2016, Additional history exists Lipid Panel 10/06/2025 10/06/2024, [...] patient's age to complete this topic Insurance [facility] Advance Directives * Full Code (Latest Code Status on File) Date Activated Date Inactivated Comments 03/13/2024 2:43 PM * Full Code Date Activated Date Inactivated Comments 03/02/2024 11:33 AM 03/07/2024 3:17 PM * Full Code Date Activated Date Inactivated Comments 02/29/2024 9:49 AM 03/02/2024 11:32 AM Care Teams Long Chain Beamer Relationship Specialty Start Date End Date Andre Gil DO [address] [facility] [address] [place] [address] PCP - General FAMILY PRACTICE 02/28/24
--- OUTSIDE RECORDS SUMMARY | 2025-05-02 12:16 | XMS_ITS | Clinical Summary ---
Author Organization [facility] [place] [address] Address [address] [place] [address] Care Team Providers Care Electric Engine Mechanic Name Role Phone Grant Patino MD Unavailable [phone] Andre Gil DO Primary Care Provider [phone] Allergies Active Allergy Reactions Criticality Noted Date Comments Penicillins Rash Medium Medications metFORMIN XR (GLUCOPHAGE XR) 500 mg 24 hr tablet Take 1 tablet (500 mg total) by mouth 2 (two) times a day with meals 0 Active blood glucose diagnostic (OneTouch Verio test [...] (10 mg total) by mouth daily Active clopidogreL (PLAVIX) 75 mg tablet TAKE 1 TABLET(75 MG) BY MOUTH DAILY 90 tablet 3 5 Active metoprolol XL (TOPROL-XL) 25 mg extended release tabletIndication s:Paroxysmal atrial fibrillation (HCC) Take 0.5 tablets (12.5 mg total) by mouth daily Takes one half pill 45 tablet 3 5 Active traZODone (DESYREL) 100 mg tablet Take 1 tablet (100 mg total) by mouth nightly 2 09/16/20 25 Discontinue d(No longer taking - Do not display on AVS) finasteride (PROSCAR) 5 mg tablet Take 1 tablet (5 mg total) by mouth every morning 04/05/20 25 Discontinue d(No longer taking - Do not display on AVS) metoprolol XL (TOPROL-XL) 25 mg extended release tablet Take 0.5 tablets (12.5 mg total) by mouth daily Takes one half pill 04/05/20 25 Discontinue d(Reorder) Active Problems Problem Noted Date Diagnosed Date [...] CDT): -remains compliant on Eliquis therapy, asymptomatic -[id number] is 5 -recommend continued therapy for thromboprophylaxis -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 I have therefore recommended that he remain anticoagulated for thromboprophylaxis. Persistent atrial fibrillati on with rapid ventricular response 11/01/2021 Overview (11/01/2021): Added automatically from request for surgery [id number] Assessment & Plan (03/26/2023 3:38 PM CDT): [...] with atrial fibrillation: a report of the [place] [employer] Association Task Force on Practice Guidelines [...] desired. (Level of Evidence: C) Dizzy 06/15/2017 Encounters Date Type Department Care Team Description 04/05/2025 2:00 PM CDT Office Visit [facility] [address] [place] [id number] Vidya Khan NP Unintended weight gain; Edema, lower extremity; Paroxysmal atrial fibrillation (HCC); History of CVA (cerebrovascular accident) from Last 3 Months Surgical History Surgery Date Site/Laterality Comments URETHRAL DILATION 02/19/2020 - 03/20/2020 has had many COLONOSCOPY UMBILICAL HERNIA REPAIR CARDIOVERSION x1 ABLATION cardiac JOINT REPLACEMENT Right GUZMAN Medical History Medical History Date Comments Atrial fibrillation (HCC) Diabetes mellitus Sleep apnea Vertigo Stroke (HCC) x2 (01/28/2022 & 07/17/2022) right sided weakness, aphasia Hypertension CHF (congestive heart failure) (HCC) Type 2 diabetes mellitus Personal history of COVID-19 ear ly Mar 2024 Family History Medical History Relation Name Comments Odin Honeydew Father Lung cancer Mother Diabetes Sister 1 [...] = 0.6 oz pur e alcohol) rarely [facility] Utilities Answer Date Recorded In the past 12 months has [employer], gas, oil, or water [employer] threatened to shut off services in your home? No 04/23/2024 Social Connection and Isolation Panel Answer Date Recorded In a typical week, how many times do you talk on the phone with family, friends, or neighbors? Three times a week 04/23/2024 How often do you get togethe r with friends or relatives? Once a week 04/23/2024 How often do you attend [facility] or druze services? 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 Gender Identity Not on file Sexual Orientation Not on file Obstetrics History Last Filed Vital Signs Vital Sign Reading Time Taken Comments Blood Pressure 120/72 04/05/2025 1:36 PM CDT Pulse 95 04/05/2025 1:36 PM CDT Temperature 36.6 C (97.8 F) 04/23/2024 11:58 AM CDT Respiratory Rate 20 04/23/2024 11:58 AM CDT Oxygen Saturation 98% 04/05/2025 1:36 PM CDT Inhaled Oxygen Concentration - - Weight 102 kg (224 lb 14.4 oz) 04/05/2025 1:36 P M CDT Height 175.3 cm (5' 9) 04/05/2025 1:36 PM CDT Body Mass Index 33.21 04/05/2025 1:36 PM CDT Plan of Treatment Health Maintenance Due Date Last Done Comments Albumin Creatinine Ratio, Urine 1954 Colon Cancer Screening-Colonoscopy 1954 Depression Screening 1954 Hepatitis C Screening 1954 Dilated Eye Exam 1954 Foot Exam 1954 Hepatitis B Screening 01/26/1972 Well Visit 65+ 2019 Pneumococcal vaccine 65+ (3 of 3 - PCV20 or PCV21) 07/19/2020 07/19/2015, 12/16/2013 Hemoglobin A1C 10/07/2024 04/09/2024, 01/18, 12/09/2021 Covid-19 Vaccine (3 - 2024-2 6 season) 2025 11/20/2020, 10/30/2020 Influenza Vaccine (#1) 2025 , 05/12/2018, 05/06/2017, Additional history exists Fall Risk Assessment 04/23/2025 04/23/2024 eGFR 04/23/2025 04/23/2024, 03/22, 12/12/2021, Additional history exists Lipid Panel 10/06/2025 10/06/2024, 11/19, 02/04/2022, Additional history exists DTaP/Tdap/Td Vaccine (3 - Td or Tdap) 12/14/2031 12/13/2021, 11/16/2014, 04/15/2006 Zoster Vaccine Completed 03/08/2022, 12/20, 12/19/2013 Medical Devices Implanted Type Area Well Driller Device Identifier Shelf Expiration Date Model / Serial / Lot Vascade Mvp 6-12fr Venous Closure [id number] - [id number] - [id number] Implanted:Qty: 1 on 12/05/2021 by Grant Patino MD at [facility] Right: Femoral [employer] 10/03/2023 [id number] [id number] / [id number] 16B / [id number] Vascade Mvp 6-12fr Venous Closure [id number] - [id number] - [id number] Implanted:Qty: 1 on 12/05/2021 by Grant Patino MD at [facility] Left: Femoral [employer] 10/03/2023 [id number] 10U / [id number] 16B / [id number] [employer] Vascade 6/7fr Bioabsorbable Vascular System Compression Collagen [id number] - [id number] - [id number] Implanted:Qty: 1 on 12/05/2021 by Grant Patino MD at [facility] Right: Femoral [employer] 07/09/2023 [id number] 05U / [id number] / [id number] Renee Vascular System Closure Repair Femoral Artery Suture Mediated Perclose Prostyle [id number] - [id number] Implanted:Qty: 1 on 04/22/2024 by Manolo Sinclair MD at [facility] 01/17/2026 [id number] / / [id number] Renee Vascular System Closure Repair Femoral Artery Suture Mediated Perclose Prostyle 42276-41 - [id number] Implanted:Qty: 1 on 04/22/2024 by Manolo Sinclair MD at [facility] 01/17/2026 [id number] / / [id number] Renee V[employer] Percutaneous Transcatheter Amplatzer Amulet 22mm [id number] - [id number] Implanted:Qty: 1 on 04/22/2024 by Manolo Sinclair MD at [facility] [employer] 11/17/2028 [id number] / / [id number] Procedures Procedure Name Priority Date/Time Associated Diagnosis [...] of Race in Diagnosing Kidney Disease, JASN 202). The CKD-EPI equation should not be used for patients with unstable renal function and has not been validated in children and those over 70. Current interpretive data was last reviewed 2021. Blood 04/23/2024 4:11 AM CDT 04/23/2024 5:04 AM CDT Manolo Sinclair MD LAB BLOOD ORDERABLES Final Resul t Performing Organization Address City/[facility] [place] [address] [address] [place] [place] [address] * Hemoglobin A1c (04/09/2024 9:56 AM CDT) Hgb A1C 5.1 4.0 - 5.6 % Estimated Average Glucose 100 mg/dL [place] Comment: The ADA recommends reporting an estimated Average Glucose (eAG) with all Hemoglobin A1c results using the equation derived from a study of 507 normal and diabetic adults. Minority populations were underrepresented and children were not included. (Diabetes Care 31:6320-8636, 2008). The eAG is not equivalent to a fasting glucose. Blood 04/09/2024 9:56 AM CDT 04/09/2024 9:59 AM CDT Manolo Sinclair MD LAB BLOOD ORDER[place] [address] [address] [place] [address] from Last 3 Months or Most Recently Relevant to Health Maintenance Insurance [facility] [employer] [place] [employer] [place] Advance Directives For more information, please contact: [phone] * Full Code (Latest Code Status on File) Date Activated Date Inactivated Comments 12/07/2021 10:53 PM 12/12/2021 4:52 PM Care Teams Electric Engine Mechanic Relationship Specialty Start Date End Date Andre Gil DO [address] [facility] [place] [address], [place] [address] PCP - General Family Medicine 02/20/22 Grant Patino MD [address] [place], [place] [address] Consulting Physician Cardiology 12/12/21
[2025-05-02 13:11] LABS: Anion Gap 9 mmol/L (4-12); Blood Urea Nitrogen 18 mg/dL (9-20); Calcium 9.1 mg/dL (8.4-10.2); Carbon Dioxide 27 mmol/L (22-30); Chloride 104 mmol/L (98-107); Estimated Glomerular Filt Rate 50; Glucose 145 mg/dL (65-110); Potassium 4.1 mmol/L (3.4-5.0); Sodium 140 mmol/L (137-145)
[2025-05-02 13:18] LABS: Albumin Level 4.1 g/dL (3.5-5.1); Anion Gap 9 mmol/L (4-12); Blood Urea Nitrogen 18 mg/dL (9-20); Calcium 8.8 mg/dL (8.4-10.2); Carbon Dioxide 26 mmol/L (22-30); Chloride 104 mmol/L (98-107); Estimated Glomerular Filt Rate 51; Glucose 145 mg/dL (65-110); Potassium 3.9 mmol/L (3.4-5.0); Sodium 139 mmol/L (137-145)
[2025-05-02 13:46] LABS: Total Protein Urine Random 9 mg/dL; Ur Ttl Prot Creatinine Ratio 0.10 mg/mg (0-0.20)
[2025-05-03 15:09] LABS: Albumin 3.3 g/dL (2.9-4.4); Alpha-1-Globulin 0.3 g/dL (0.0-0.4); Alpha-2-Globulin 1.0 g/dL (0.4-1.0); Gamma Globulin 0.9 g/dL (0.4-1.8)
[2025-05-03 18:08] LABS: ANA by IFA Rfx Titer/Pattern Positive (.)
[2025-05-04 14:09] LABS: Albumin, U 23.8 % (.); Alpha-1-Globulin, U 1.7 % (.); Alpha-2-Globulin, U 9.9 % (.); Beta Globulin, U 42.2 % (.); Gamma Globulin, U 22.5 % (.)
[2025-05-04 19:09] LABS: Anti-GBM Antibodies <0.2 units (0.0-0.9)
== END 2025-05-02 10:59 | disposition home or self-care (01) ==
LOC: ANHGOSHLAB 10:58
PROVIDERS: PCP Nurse Practitioner; Visit Provider Internal Medicine Nephrology
DX: I12.9 Hypertensive chronic kidney disease with stage 1 through stage 4 chronic kidney disease, or unspecified chronic kidney disease (principal); N18.32 Chronic kidney disease, stage 3b; E11.22 Type 2 diabetes mellitus with diabetic chronic kidney disease
CPT/HCPCS: 36415; 80048; 80069; 82570; 84155; 84156; 84165; 84166; 86037; 86038; 86160; 86225; 86364

== ENCOUNTER 2025-05-12 15:48 | Outpatient (CLI) | payer BC, SELFPAY ==
--- OUTSIDE RECORDS SUMMARY | 2025-05-12 16:38 | XMS_ITS | Clinical Summary ---
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 Persistent atrial fibrillati on with rapid ventricular response 11/01/2021 Overview (03/02/2024): Added automatically from request for surgery [id number] Last Assessment & Plan: -symptomatic, persistent atrial [...] - 03/01/2025 11:59 PM CDT Hospital Encounter [facility] [id number] [place] [address] Pili Mayorga APRN Eddy, Sandi L, ADRIANA Balance Problem Discharge Disposition: Home or Self Care (Routine Discharge) 03/01/2025 Travel 02/25/2025 1:42 PM CDT - 02/25/2025 11:59 PM CDT Hospital Encounter [facility] [address] [place] [address] Pili Mayorga APRN Eddy, Sandi L, DRY KILN BURNER Balance Problem Discharge Disposition: Home or Self Care (Routine Discharge) 02/25/2025 Travel 02/23/2025 1:49 PM CDT - 02/23/2025 11:59 PM CDT Hospital Encounter [facility] [address] [place] [address] Charlie Melendez, DPT Pili Mayorga APRN Balance [...] materials from doctor or pharmacy Never 04/08/2024 [facility] Utilities Answer Date Recorded In the past 12 months has th e [employer], gas, oil, or water [employer] threatened to shut off services in your [...] any time in the past 12 m [facility], were you homeless or living in a [...] 10/06/2025 10/06/2024, 11/19, 02/04/2022, Additional history exists Hepatitis A Vaccines Aged Out No long er eligible based on patient's age to complete this topic Meningococcal B Vaccine Aged Out No l onger eligible based on patient's age to complete this topic Meningococcal Vaccine Aged Out No gene eloy eligible based on patient's age to complete this topic RSV Immunizations Under 20 Months Aged Out No longer eligible based on patient's age to complete this topic Insurance [facility] MEDIC[facility] Advance Directives * Full Code (Latest Code Status on File) Date Activated Date Inactivated Comments 03/13/2024 2:43 PM * Full Code Date Activated Date Inactivated Comments 03/02/2024 11:33 AM 03/07/2024 3:17 PM * Full Code Date Activated Date Inactivated Comments 02/29/2024 9:49 AM 03/02/2024 11:32 AM Care Teams Technology Analyst Relationship Specialty Start Date End Date Andre Gil DO [address] [facility] [address] [place] [address] [place] [address] PCP - General FAMILY PRACTICE 02/28/24
--- OUTSIDE RECORDS SUMMARY | 2025-05-12 16:38 | XMS_ITS | Clinical Summary ---
Author Organization [facility] [employer] Address [address] [facility] [place] [address] Care Team Providers Care Bass String Winder Name Role Phone Chinmay Avelar MD Primary Care Provider [phone] Source Comments [facility] [employer]non-owned Affiliates and Associated Physician Practices is amultiple site organization consisting of ambulatory clinics and hospital sitesin [place], [place], [place] and [place]. This disclosure is being madepursuant to the Care Everywhere program and may not contain all information available regarding this patient. Last updated 18.[facility] [employer] 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 Gender Identity Not on file Sexual Orientation [...] this topic Medical Devices Implanted Type Area Camera Person Device Identifier Shelf Expiration Date Model / Serial / Lot Biomet Acetabular Shell Ring Loc Size 24 Implanted:Qty: 1 on 06/11/2013 by Charles Kang MD at [facility] Right: Hip 03/21/2023 [id number] / / [id number] Scrw Selftap Lo Prof Ti 6.5 X 25mm Implanted:Qty: 1 on 06/11/2013 by Charles Kang MD at [facility] Right: Hip 04/20/2023 [id number] / / [id number] Scrw Selftap Lo Prof Ti 6.5 X 25mm Implanted:Qty: 1 on 06/11/2013 by Charles Kang MD at [facility] Right: Hip 04/20/2023 [id number] / / [id number] Ringloc Acetabular Liner 36mm/Hi-Wall, Size 24 Implanted:Qty: 1 on 06/11/2013 by Charles Kang MD at [facility] Right: Hip [employer] Inc 04/19/2018 [id number] / / [id number] Taperloc Femoral Stem 12 X 144mm High Offset Type 1 Implanted:Qty: 1 on 06/11/2013 by Charles Kang MD at [facility] Right: Hip [employer] 01/17/2022 [id number] / / [id number] Biolox Taper Adapter Plus 6 Neck Implanted:Qty: 1 on 06/11/2013 by Charles Kang MD at [facility] Right: Hip [employer] 03/19/2022 [id number] / / [id number] Biolox Delta Option Ceramic Head 36mm Implanted:Qty: 1 on 06/11/2013 by Charles Kang MD at [facility] Right: Hip [employer] 05/19/2023 [id number] / / [id number] Procedures Procedure Name Priority Date/Time Associated Diagnosis Comments BASIC METABOLIC PANEL (CALCIUM TOTAL) AM Draw 01/19/2024 1:25 AM CDT HEMOGLOBIN A1C Add on 02/03/2022 9:25 PM CDT from Last 3 Months or Most Recently Relevant to Health Maintenance Results * (ABNORMAL) BASIC METABOLIC PANEL (CALCIUM TOTAL) (01/19/2024 1:25 AM CDT) [facility] Glucose 85 70 - 105 mg/dL [...] - 10.4 mg/dL 01/19/2024 1:55 AM CDT [facility] Anion Gap 10 6 - 16 mmol/L 01/19/2024 1:55 AM CDT [facility] BUN 19 7 - 26 mg/dL 01/19/2024 1:55 AM CDT [facility] Creatinine 1.52(H) 0.72 - 1.25 mg/dL 01/19/2024 1:55 AM CDT [facility] eGFR by CKD-EPI 49(L) >=90 mL/min/1.7 3 m2 01/19/2024 1:55 AM CDT [facility] Blood BLOOD SPECIMEN / Unknown Venipuncture / Unknown 01/19/2024 1:25 AM CDT 01/19/2024 1:29 AM CDT Sandra Borrero MD LAB - CHEMISTRY ORDERABLES Fi nal Result [facility] [address] [place] [id number] * (ABNORMAL) HEMOGLOBIN A1C (02/03/2022 9:25 PM CDT) Hemoglobin A1c 6.3(H) <5.7 % 02/04/2022 7:42 AM CDT [facility] Estimated Average Glucose 134 mg/dL 02/04/2022 7:42 AM CDT [facility] Blood BLOOD SPECIMEN / Unknown Venipuncture / Unknown 02/03/2022 9:25 PM CDT 02/03/2022 9:29 PM CDT Narrative [facility] - 02/04/2022 7:42 AM CDT HbA1c [...] exceeds 5% in the specimen. The Renee Esol Teacher Assistant assay for the measurement of HbA1c is a National Glycohemoglobin Standardization Program (NGSP) certified method. us Matt Mcqueen MD LAB - CHEMISTRY ORDERABLES Fin al Result [facility] [address] [place] [address] from Last 3 Months or Most Recently Relevant to Health Maintenance Insurance [facility] MEDICARE PB RM Report A Bad address: [address] [facility] [address] Updating the address to: [address] [facility] [address] [place] [address] Advance Directives * Full Code (Latest Code Status on File) Date Activated Date Inactivated Comments 01/16/2024 4:58 AM 01/20/2024 5:13 PM * Full Code Date Activated Date Inactivated Comments 02/04/2022 7:16 AM 02/07/2022 6:24 PM * FULL RESUSCITATION Date Activated Date Inactivated Comments 06/11/2013 10:00 AM 06/14/2013 4:00 PM Care Teams Bass String Winder Relationship Specialty Start Date End Date Chinmay Avelar MD [address] [place] [address] PCP - General Family Medicine 06/11/13
--- OUTSIDE RECORDS SUMMARY | 2025-05-12 16:38 | XMS_ITS | Encounter Summary ---
Author Organization [facility] Address [address] [place] [address] Care Team Providers Care Plate Put In Worker Name Role Phone Chinmay Avelar MD Primary Care Provider [phone] Grant Patino MD Unavailable [phone] Andre Gil DO Primary Care Provider [phone] Encounter Details Date Type Department Care Team (Late st Contact Info) Description 12/14/2021 [facility] Post Discharge Follow up phone call [facility] [address] [place] [phone] Crystal Cifuentes RPh Social History Tobacco Use [...] often do you attend chur ch or sikh services? 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 Gender Identity Not on file Sexual Orientation Not on file documented as of this encounter Plan of Treatment Not on file documented as of this encounter Visit Diagnoses Not on filedocumented in this encounter Care Teams Plate Put In Worker Relationship Specialty Start Date End Date Chinmay Avelar MD [address] [place] [address] PCP - General Family Medicine 07/07/20 02/19/22 Andre Gil DO [address] [facility] [address] [address] PCP - General Family Medicine 02/20/22 Grant Patino MD [address] [facility] [address] [address] Consulting Physician Cardiology 12/12/21 documented as of this encounter
--- OUTSIDE RECORDS SUMMARY | 2025-05-12 16:38 | XMS_ITS | Clinical Summary ---
Author Organization [facility] [place] [address] Address [address] [place] [address] Care Team Providers Care Telecom Manager Name Role Phone Grant Patino MD Unavailable [phone] Andre Gil DO Primary Care Provider [phone] Allergies Active Allergy Reactions Criticality Noted Date [...] metoprolol XL (TOPROL-XL) 25 mg extended release tabletIndications :Paroxysmal atrial fibrillation (HCC) Take 0.5 tablets (12.5 mg total) by mouth daily Takes one half pill 45 tablet 3 5 Active Active Problems Problem Noted Date Diagnosed [...] CDT): -remains compliant on Eliquis therapy, asymptomatic -[id number] is 5 -recommend continued therapy for thromboprophylaxis -history of cardioembolic stroke after stopping his anticoagulation post ablation Assessment & Plan (11/03/2021 12:57 PM CDT): The patient has a [id number]-[id number] score of 3 (annualized risk of stroke 3 %). I have therefore recommended that he remain anticoagulated for thromboprophylaxis. Persistent atrial fibrillati on with rapid ventricular response 11/01/2021 Overview (11/01/2021): Added automatically from request for surgery [id number] Assessment & Plan (03/26/2023 3:38 PM CDT): [...] JS, Marianne H, Jonathan KISHORE, Shayy JE, Shanqiua ARNOLD, Amber PT, Phuc STEELE, ME, Yonas KT, Vincent RL, Kedar WG, Taiwo PJ, Helene CM, Luisa CW. 2014 AHA/ACC/HRS guideline for the management of patients with atrial fibrillation: a report of the [place] [employer]/[place] [employer] Association Task Force on Practice Guidelines [...] Description 04/05/2025 2:00 PM CDT Office Visit [facility] [address] [place] [address] Vidya Khan NP Unintended weight gain; Edema, [...] = 0.6 oz pur e alcohol) rarely [facility] Utilities Answer Date Recorded In [...] week 04/23/2024 How often do you attend [facility] or jain services? 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 Gender Identity Not on file Sexual [...] 12/20, 12/19/2013 Medical Devices Implanted Type Area Sports Apparel Internship Device Identifier Shelf Expiration Date Model / Serial / Lot Vascade Mvp 6-12fr Venous Closure [id number] - [id number] - [id number] Implanted:Qty: 1 on 12/05/2021 by Grant Patino MD at [facility] Collagen Right: Femoral [employer] 10/03/2023 800-612C- 10U / [id number] / [id number] Vascade Mvp 6-12fr Venous Closure [id number] - [id number] - [id number] Implanted:Qty: 1 on 12/05/2021 by Grant Patino MD at [facility] Collagen Left: Femoral [employer] 10/03/2023 800-612C- 10U / [id number] 16B / [id number] [employer] Vascade 6/7fr Bioabsorbable Vascular System Compression Collagen [id number] - [id number] - [id number] Implanted:Qty: 1 on 12/05/2021 by Grant Patino MD at [facility] Collagen Right: Femoral [employer] 07/09/2023 700-580I- 05U / [id number] / [id number] [employer] V[employer] System Closure Repair Femoral Artery Suture Mediated Perclose Prostyle 77149-45 - [id number] Implanted:Qty: 1 on 04/22/2024 by Manolo Sinclair MD at [facility] [employer] 01/17/2026 56923-10 / / [id number] [employer] V[employer] System Closure Repair Femoral Artery Suture Mediated Perclose Prostyle 00312-86 - [id number] Implanted:Qty: 1 on 04/22/2024 by Manolo Sinclair MD at [facility] [employer] 01/17/2026 26207-94 / / [id number] [employer] Percutaneous Transcatheter Amplatzer Amulet 22mm [id number] - [id number] Implanted:Qty: 1 on 04/22/2024 by Manolo Sinclair MD at [facility] [employer] 11/17/2028 9-ACP2-00 7-022 / / [id number] Procedures Procedure Name Priority Date/Time Associated Diagnosis [...] ORDERABLES Final Resul t Performing Organization Address City/[facility] [place] [address] [address] [place] [address] * Hemoglobin A1c (04/09/2024 9:56 AM CDT) Hgb A1C 5.1 4.0 - 5.6 % Estimated Average Glucose 100 mg/dL [place] Comment: The ADA recommends reporting an estimated Average Glucose (eAG) with all Hemoglobin A1c results using the equation derived from a study of 507 normal and diabetic adults. Minority populations were underrepresented and children were not included. (Diabetes Care 31:5257-4632, 2008). The eAG is not equivalent to a fasting glucose. Blood 04/09/2024 9:56 AM CDT 04/09/2024 9:59 AM CDT Manolo Sinclair MD LAB BLOOD ORDERABLES Final Resul t Performing Organization Address [facility] [place] Number [place] [address] [address] Department [place] [address] from Last 3 Months or Most Recently Relevant to Health Maintenance Insurance [employer] [place] [employer] [place] MEDICARE [facility] Address: [address] [place] [id number] [facility] Advance Directives For more information, please contact: [phone] * Full Code (Latest Code Status on File) Date Activated Date Inactivated Comments 12/07/2021 10:53 PM 12/12/2021 4:52 PM Care Teams Telecom Manager Relationship Specialty Start Date End Date Andre Gil DO [address] [place] [facility] [address], [place] [address] PCP - General Family Medicine 02/20/22 Grant Patino MD [address] [address] Consulting Physician Cardiology 12/12/21
[2025-05-12 19:09] LABS: Ferritin 56.60 ng/mL (11.1-264)
== END 2025-05-12 15:49 | disposition home or self-care (01) ==
LOC: ANHGOSHLAB 15:49
PROVIDERS: PCP Family Medicine; Visit Provider Family Medicine
DX: D64.9 Anemia, unspecified (principal)
CPT/HCPCS: 36415; 82728